=== PATIENT | female | born 1935 | race Caucasian/White ===

== ENCOUNTER 2025-05-13 00:42 | Inpatient (IN) ==
--- NOTE | 2025-05-13 00:52 | Emergency Department Note ---
Impression & Plan CLAY (acute kidney injury) Admission ED Provider Note HPI: History obtained from patient. The patient is a 89-year-old female who presents the emergency department with a chief complaint of diarrhea. Patient states that she has had watery diarrhea every day for the past 3 days. Patient states she has had some intermittent abdominal discomfort but currently she states she does not have any abdominal pain. 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 On arrival here to the ED the patient is alert, she is hemodynamically stable, she otherwise appears to be in no acute distress. ROS: - Per HPI Differential Diagnosis: C. difficile colitis, viral gastroenteritis, sepsis, diverticulitis flare, acute cholecystitis, acute appendicitis, amongst other potential pathologies. *Outpatient medications and allergy history reviewed. PE: General: Alert, frail-appearing, no acute distress HEENT: Normocephalic, trachea midline Eyes: Extraocular eye movement is intact, no scleral erythema Pulmonary: Clear to auscultation bilaterally, no wheezing Cardio: Regular rate and rhythm GI: Abdomen is soft to palpation, there is mild distention, there is no guarding or rigidity : No suprapubic tenderness MSK: No evidence of trauma or malformation of the extremities, no edema Skin: No evidence of rash, chronic appearing lower extremity wound to the anterior aspect of the right [place] without any surrounding purulent drainage Neuro: Alert, no focal deficits Psychiatric: Cooperative INDEPENDENT INTERPRETATIONS: clinical research monitor: (As interpreted by myself): - An order was placed for continuous cardiac monitoring - Patient was noted to be in sinus rhythm with a rate of 82 Interventions provided in ED: - IV fluid bolus, IV Zofran, IV Flagyl, IV ciprofloxacin Medical Decision Making: IV was established and lab work obtained, patient was placed on front desk monitor. Lab work shows a mild leukocytosis of 12.24, hemoglobin is normal, platelet count is normal, CMP shows a mild hyponatremia 127 that does appear to be new, creatinine is also elevated at 1.73 with a BUN of 29, patient was given IV fluids here in the ED. CT imaging of the abdomen pelvis was obtained without contrast given the patient's renal function, this is suggestive of possible acute choledocholithiasis without acute cholecystitis as well as colitis changes per the interpreting radiologist. Of note, patient does not have any transaminitis and her bilirubin is normal. On my reassessment the patient is resting comfortably in bed, she otherwise appears to be in no acute distress. She was unable to give a stool sample here in the ED as she stated she did not feel that she needed to go. I discussed all of the above findings with the patient as well as 2 family members they later arrived at the bedside. Patient is in agreement for admission. Blood cultures were drawn and the patient was started on ciprofloxacin and Flagyl given her penicillin allergy. Gastroenterology was paged from the ED and I did discuss the patient's presentation with Dr. Pete. He is in agreement for consultation and does not request any further testing at this point. I did discuss the patient's presentation with the on-call hospitalist, Dr. Gaspar, and the patient was placed for admission in stable condition. Consultants/Discussions held with other healthcare providers: - Hospitalist, Dr. Gaspar - Gastroenterology, Dr. Pete Disposition discussion held by myself with: - Patient and patient's family at the bedside Diagnosis: 1. Diarrhea, acute 2. Colitis, acute 3. Choledocholithiasis on CT imaging, acute Disposition: Admission Abel Anthony DO Emergency Medicine Past Med/Surg History Problem List (Updated 05/13/25 @ 04:04 by Abel Anthony DO) CLAY (acute kidney injury) (Acute) Abnormal ankle brachial index (DAVON) (Acute) Lower extremity edema (Chronic) Stage IV pressure ulcer (Acute) Closed fracture of left proximal humerus (Acute) Fall (Acute) Rib contusion (Acute) Social History Smoking Status: Former smoker Preferred Language: Bengali Feels Safe at Home: Yes Allergies Allergies Allergy/AdvReac Type Severity Reaction Status Date / Time Penicillins Allergy Severe THROAT Verified 05/13/25 01:33 SWELLS/ITCHING HANDS & FEET Home Meds Home Medications Medication Instructions Recorded Confirmed apixaban 2.5 mg tablet 2.5 mg PO BID 03/20/25 05/13/25 diltiazem HCl 180 mg 180 mg PO DAILY 03/21/25 05/13/25 tablet,extended release 24 hr (Cardizem LA) amiodarone 200 mg tablet 200 mg PO DIRECTED 05/13/25 05/13/25 dapagliflozin propanediol 10 mg 10 mg PO DAILY 05/13/25 05/13/25 tablet furosemide 40 mg tablet 40 mg PO QAM 05/13/25 05/13/25 levothyroxine 50 mcg tablet 50 mcg PO DAILYBB 05/13/25 05/13/25 magnesium oxide 800 mg PO DAILY 05/13/25 05/13/25 multivitamin,tx-minerals 1 tab PO DAILY 05/13/25 05/13/25 potassium chloride 10 mEq 10 meq PO BID 05/13/25 05/13/25 tablet,extended release spironolactone 25 mg tablet 25 mg PO DAILY 05/13/25 05/13/25 Results & Data (ED) Vital Signs Vital Signs - 24 hr 05/13/25 00:48 05/13/25 00:48 05/13/25 01:00 Temperature 37.3 C Temperature Source Oral Pulse Rate 96 H 83 91 H Pulse Rhythm Regular Pulse Strength Normal Respiratory Rate 20 19 Respiratory Effort / Characteristics Non-Labored Spontaneous Respiratory Depth Normal Respiratory Pattern Regular Blood Pressure 112/88 112/54 L Blood Pressure Mean 96 73 Pulse Oximetry 96 95 Oxygen Delivery Method Room Air Oxygen Flow Rate Sepsis Recent Fever Within 48 Hours No Sepsis New/Unexplained Change in Mental Status No Sepsis Action Taken by Nursing No Action Required 05/13/25 01:30 05/13/25 02:30 Temperature Temperature Source Pulse Rate 83 80 Pulse Rhythm Pulse Strength Respiratory Rate 24 20 Respiratory Effort / Characteristics Respiratory Depth Respiratory Pattern Blood Pressure 101/58 L 102/52 L Blood Pressure Mean 72 68 Pulse Oximetry 95 Oxygen Delivery Method Nasal Cannula Oxygen Flow Rate 2 Sepsis Recent Fever Within 48 Hours Sepsis New/Unexplained Change in Mental Status Sepsis Action Taken by Nursing Laboratory Data 05/13/25 00:51 05/13/25 00:51 Lab Results 05/13/25 05/13/25 Range/Units 00:51 00:56 WBC 12.24 H (4.8-10.8) K/ul RBC 5.11 (4.20-5.40) M/uL Hgb 14.8 (12.0-16.0) g/dL Hct 43.9 (37.0-47.0) % MCV 85.9 (80.0-100.0) fL MCH 29.0 (25.0-34.0) pg MCHC 33.7 (32.0-36.0) g/dL RDW Std Deviation 45.0 (36.4-46.3) fL RDW Coeff of Olga 14.4 (11.5-14.5) % Plt Count 178 (130-400) K/uL MPV 10.0 (9.4-12.4) fL Immature Gran % (Auto) 0.2 % Neut % (Auto) 80.2 % Lymph % (Auto) 9.3 % Burnet % (Auto) 9.6 % Eos % (Auto) 0.2 % Baso % (Auto) 0.5 % Neut # (Auto) 9.81 H (1.40-6.50) K/uL Lymph # (Auto) 1.14 L (1.20-3.40) K/uL Burnet # (Auto) 1.18 H (0.11-0.59) K/uL Eos # (Auto) 0.02 (0.00-0.50) K/uL Baso # (Auto) 0.06 (0.00-0.20) K/uL Immature Gran # (Auto) 0.03 (0.01-0.20) K/uL Sodium 127 L (136-145) mmol/L Potassium 4.2 (3.5-5.1) mmol/L Chloride 90 L (98-107) mmol/L Carbon Dioxide 26 (21-32) mmol/L Anion Gap 11 (3-11) BUN 29 H (6-23) mg/dl Creatinine 1.73 H (0.6-1.2) mg/dl Est Cr Clr Drug Dosing 23.8 ml/min eGFR 28.25 BUN/Creatinine Ratio 16.8 (10-20) Glucose 106 H (70-99(Fasting)) mg/dl Osmolality 267 L (280-300) mOsm/kg Lactate 1.3 (0.4-2.0) mmol/L Calcium 9.1 (8.6-10.3) mg/dl Magnesium 1.9 (1.7-2.4) mg/dl Total Bilirubin 0.7 (0.2-1.0) mg/dl AST 23 (13-39) U/L ALT 15 (7-52) U/L Alkaline Phosphatase 105 H (34-104) U/L Total Protein 7.0 (6.0-8.3) gm/dl Albumin 3.7 (3.4-5.0) gm/dl Globulin 3.3 (2.5-4.0) gm/dl Albumin/Globulin Ratio 1.1 (0.9-2) Lipase 13 (11-82) U/L Administered Medications Metronidazole (Flagyl) 500 mg in 100 mls @ 100 mls/hr IV NOW STA; Protocol Stop: 05/13/25 04:07 Last Admin: 05/13/25 03:24 Dose: 100 mls/hr Documented By: VALERIANO Discontinued Medications Sodium Chloride (Nss) 500 mls @ 999 mls/hr IV .Q31M STA Stop: 05/13/25 01:16 Last Infusion: 05/13/25 01:25 Dose: Infused Documented By: Admin: 05/13/25 00:56 Dose: 999 mls/hr Documented By: KIKE Sodium Chloride (Nss) 500 mls @ 999 mls/hr IV .Q31M ONE Stop: 05/13/25 03:28 Last Admin: 05/13/25 03:24 Dose: 999 mls/hr Documented By: VALERIANO Ondansetron HCl (Ondansetron Inj 2 Mg/Ml 2 Ml Vial) 4 mg IV NOW STA Stop: 05/13/25 00:53 Last Admin: 05/13/25 00:57 Dose: 4 mg Documented By: KIKE Imaging Data Radiologist's Impression: Abdomen/Pelvis CT 05/13/25 01:27 EXAM: CT abd pelvis wo con CLINICAL HISTORY: Diarrhea, abdominal pain TECHNIQUE: Contiguous axial images were obtained from the level of the diaphragm to the pubic symphysis without intravenous or oral contrast. Coronal and sagittal reconstructions were likewise performed and indicated to increase the sensitivity for detecting clinically relevant pathology. CT scan was performed according to ALARA (as low as reasonably achievable). COMPARISON: None. FINDINGS: The visualized lung bases are clear. Sliding hiatus hernia noted. Evaluation of the abdominal and pelvic visceral organs is limited without intravenous contrast. The unenhanced liver, spleen, pancreas, and adrenal glands are grossly unremarkable. About 16 x 16 mm sized hypodense lesion is noted in segment IV of liver. The gallbladder distended and shows a calculus of size 22 mm with internal hyperdense sludge without cholecystitis. Common bile duct is dilated with a hyperdense calculus of size 4 mm at distal end. The kidneys are normal in size and attenuation without obvious calcification. There is no hydronephrosis or perinephric stranding. The ureters are normal in caliber. No adenopathy or fluid collections are seen. Diffuse mucosal thickening with adjacent mesenteric fat stranding is noted involving cecum, ascending colon, hepatic and splenic flexure, descending , sigmoid colon and rectum - suggest possibility of colitis changes - clinical correlation suggested. Multiple small uncomplicated sigmoid colonic diverticulosis No imaging evidence of appendicitis. The aorta is normal in caliber. The urinary bladder is normal in contour. Pelvic viscera are grossly unremarkable. Degenerative changes involving spine in the form of multilevel marginal osteophytes, disc space reduction and facetal arthrosis. Severe osteoarthritis of bilateral hip joints. IMPRESSION: 1. Uncomplicated cholelithiasis. 2. Common bile duct is dilated with a hyperdense calculus of size 4 mm at distal end. Suggestive of choledocholithiasis. 3. Diffuse mucosal thickening with adjacent mesenteric fat stranding is noted involving cecum, ascending colon, hepatic and splenic flexure, descending , sigmoid colon and rectum - suggest possibility of colitis changes - clinical correlation suggested. 4. Multiple small uncomplicated sigmoid colonic diverticulosis. 5. Sliding hiatus hernia noted. 6. About 16 x 16 mm sized hypodense lesion is noted in segment IV of liver. 7. Severe osteoarthritis of bilateral hip joints. 8. Spondylosis changes involving visualized spine. Electronically signed by Taz Johnson 05-13-2025 02:46 AM Discharge Plan Visit Data Chief Complaint: Diarrhea Stated Complaint: Diarrhea, Abdominal Pain ED Provider: Abel Anthony Discharge Problem: CLAY (acute kidney injury) Patient Disposition: Admitted As Inpatient Condition: Fair Forms Stand Alone Forms: My [facility] Prescriptions Prescriptions: No Action apixaban 2.5 mg tablet 2.5 mg PO BID diltiazem HCl [Cardizem LA] 180 mg tablet extended release 24 hr 180 mg PO DAILY furosemide 40 mg tablet 40 mg PO QAM amiodarone 200 mg tablet 200 mg PO DIRECTED Rx Instructions: STARTED 05/11/25. TAKES 400 MG BID X 2 WEEKS, THEN 200 MG BID X 2 WEEKS, THEN 200 MG DAILY. potassium chloride 10 mEq tablet extended release 10 meq PO BID spironolactone 25 mg Tablet 25 mg PO DAILY levothyroxine 50 mcg tablet 50 mcg PO DAILYBB High Potency Vitamin/Minerals Tablet 1 tab PO DAILY dapagliflozin propanediol 10 mg tablet 10 mg PO DAILY magnesium oxide 400 mg magnesium Tablet 800 mg PO DAILY Referrals Referrals: [facility] [Primary Care Provider] -
[2025-05-13] MEDS: SODIUM CHLORIDE 0.9% 500 ML IV STA (00:56)
[2025-05-13] MEDS: ONDANSETRON INJ 2 MG/ML 2 ML VIAL IV STA (00:57)
[2025-05-13 01:06] LABS: Hematocrit (blood only) 43.9 % (37.0-47.0); Hemoglobin 14.8 g/dL (12.0-16.0); Immature Granulocytes # (auto) 0.03 K/uL (0.01-0.20); Immature Granulocytes % (auto) 0.2 %; Mean Corpuscular Hemoglobin 29.0 pg (25.0-34.0); Mean Corpuscular Volume 85.9 fL (80.0-100.0); Platelet Count 178 K/uL (130-400); RDW Standard Deviation 45.0 fL (36.4-46.3); Red Blood Count 5.11 M/uL (4.20-5.40); White Blood Count 12.24 K/ul (4.8-10.8)
[2025-05-13 01:25] LABS: Alanine Aminotransferase 15.0 U/L (7-52); Albumin Globulin Ratio 1.1 (0.9-2); Albumin Level 3.7 gm/dl (3.4-5.0); Alkaline Phosphatase 105.0 U/L (34-104); Anion Gap 11.0 (3-11); Bilirubin,Total 0.7 mg/dl (0.2-1.0); Blood Urea Nitrogen 29.0 mg/dl (6-23); Calcium 9.1 mg/dl (8.6-10.3); Carbon Dioxide 26.0 mmol/L (21-32); Chloride 90.0 mmol/L (98-107); Creatinine Clr Calc Pharmacy 23.8 ml/min; Globulin 3.3 gm/dl (2.5-4.0); Glucose 106.0 mg/dl (70-99(Fasting)); Lipase 13.0 U/L (11-82); Potassium 4.2 mmol/L (3.5-5.1); Sodium 127.0 mmol/L (136-145); Total Protein 7.0 gm/dl (6.0-8.3)
--- NOTE | 2025-05-13 02:47 | CT Scan Report ---
EXAM: CT abd pelvis wo con CLINICAL HISTORY: Diarrhea, abdominal pain TECHNIQUE: Contiguous axial images were obtained from the level of the diaphragm to the pubic symphysis without intravenous or oral contrast. Coronal and sagittal reconstructions were likewise performed and indicated to increase the sensitivity for detecting clinically relevant pathology. CT scan was performed according to ALARA (as low as reasonably achievable). COMPARISON: None. FINDINGS: The visualized lung bases are clear. Sliding hiatus hernia noted. Evaluation of the abdominal and pelvic visceral organs is limited without intravenous contrast. The unenhanced liver, spleen, pancreas, and adrenal glands are grossly unremarkable. About 16 x 16 mm sized hypodense lesion is noted in segment IV of liver. The gallbladder distended and shows a calculus of size 22 mm with internal hyperdense sludge without cholecystitis. Common bile duct is dilated with a hyperdense calculus of size 4 mm at distal end. The kidneys are normal in size and attenuation without obvious calcification. There is no hydronephrosis or perinephric stranding. The ureters are normal in caliber. No adenopathy or fluid collections are seen. Diffuse mucosal thickening with adjacent mesenteric fat stranding is noted involving cecum, ascending colon, hepatic and splenic flexure, descending , sigmoid colon and rectum - suggest possibility of colitis changes - clinical correlation suggested. Multiple small uncomplicated sigmoid colonic diverticulosis No imaging evidence of appendicitis. The aorta is normal in caliber. The urinary bladder is normal in contour. Pelvic viscera are grossly unremarkable. Degenerative changes involving spine in the form of multilevel marginal osteophytes, disc space reduction and facetal arthrosis. Severe osteoarthritis of bilateral hip joints. IMPRESSION: 1. Uncomplicated cholelithiasis. 2. Common bile duct is dilated with a hyperdense calculus of size 4 mm at distal end. Suggestive of choledocholithiasis. 3. Diffuse mucosal thickening with adjacent mesenteric fat stranding is noted involving cecum, ascending colon, hepatic and splenic flexure, descending , sigmoid colon and rectum - suggest possibility of colitis changes - clinical correlation suggested. 4. Multiple small uncomplicated sigmoid colonic diverticulosis. 5. Sliding hiatus hernia noted. 6. About 16 x 16 mm sized hypodense lesion is noted in segment IV of liver. 7. Severe osteoarthritis of bilateral hip joints. 8. Spondylosis changes involving visualized spine. Electronically signed by Taz Johnson 05-13-2025 02:46 AM
[2025-05-13] MEDS: SODIUM CHLORIDE 0.9% 500 ML IV ONE (03:24)
[2025-05-13] MEDS: metroNIDAZOLE 500 MG/100 ML BAG IV STA (03:24)
--- NOTE | 2025-05-13 03:30 | History & Physical Report ---
Date of Service May 13, 2025 Assessment & Plan (1) Abdominal pain: Plan: Assessment and plan below following discussion of case with ED provider and reviewing patient history/pertinent normal/abnormal diagnostic test results. Abdominal pain Multifactorial: Colitis rule out C. difficile given recent facility stay Choledocholithiasis No sepsis for now. ARF, hypoosmolar, hypovolemic hyponatremia secondary to illness Home diuretics contributory CHF, patient on the dry side A-fib on Eliquis, rate controlled hypertension, BP on the lower side chronic traumatic RLE wound, patient follows with [facility] wound care. Hypothyroidism TSH from 2 months ago elevated Admit to med/tele given hyponatremia Careful correction of sodium, recheck serum sodium after initial fluid bolus given at the ER Hyponatremia workup Baseline UA, hold home diuretics for now until creatinine back to baseline Stool C. difficile GI consult re: choledocholithiasis (ER provider already in touch with Dr. Pete.) N.p.o. in anticipation of procedure Hold Eliquis for now (last dose was last night prior to coming to ER) DVT prophylaxis. SCDs while Eliquis on hold DNR as per patient prior directives Patient family requesting updates providers. Ms. Daylin Patel (daughter), contact #[phone]. Mr. Bob Patel (grandson), contact #[phone]. Text document was generated using [employer] voice recognition software. It may contain grammatical or spelling errors. Kindly contact undersigned for clarification of any documentation item in question. History of Present Illness Chief Complaint: abdominal pain Primary Care Provider: Dr London (Patient has not met him.) History obtained from patient, family, and records. Medical history significant for CHF, A-fib on Eliquis, hypertension, hyperlipidemia, hypothyroidism, chronic traumatic RLE wound. Recent confinement [facility] last January 2025 for possible pneumonia, UTI, traumatic rhabdomyolysis/RLE wound. Patient subsequently discharged to [facility] facility and was just discharged home 2 days ago. Patient with watery diarrhea symptoms 3 days ago prior to leaving rehab facility. Intermittent achy upper abdominal pain with nausea symptoms. No fever, no chills. No chest pain, no SOB. Poor appetite at home. Patient brought to ER for evaluation. NSS bolus, IV ciprofloxacin and Flagyl administered at the ER. Medical History as above Surgical History : Shoulder surgery, ankle fracture surgery Family History : No DM, no heart disease, no gallstones Personal/Social history : Non-smoker, no EtOH intake, retired caregiver Allergies Allergy/AdvReac Type Severity Reaction Status Date / Time Penicillins Allergy Severe THROAT Verified 05/13/25 01:33 SWELLS/ITCHING HANDS & FEET Home Medications Medication Instructions Recorded Confirmed Type apixaban 2.5 mg tablet 2.5 mg PO BID 03/20/25 05/13/25 History diltiazem HCl 180 mg 180 mg PO DAILY 03/21/25 05/13/25 History tablet,extended release 24 hr (Cardizem LA) amiodarone 200 mg tablet 200 mg PO DIRECTED 05/13/25 05/13/25 History dapagliflozin propanediol 10 mg 10 mg PO DAILY 05/13/25 05/13/25 History tablet furosemide 40 mg tablet 40 mg PO QAM 05/13/25 05/13/25 History levothyroxine 50 mcg tablet 50 mcg PO DAILYBB 05/13/25 05/13/25 History magnesium oxide 800 mg PO DAILY 05/13/25 05/13/25 History multivitamin,tx-minerals 1 tab PO DAILY 05/13/25 05/13/25 History potassium chloride 10 mEq 10 meq PO BID 05/13/25 05/13/25 History tablet,extended release spironolactone 25 mg tablet 25 mg PO DAILY 05/13/25 05/13/25 History Past Med/Surg History Problem List (Updated 05/13/25 @ 05:03 by Jason Gaspar MD) Abdominal pain CLAY (acute kidney injury) (Acute) Abnormal ankle brachial index (DAVON) (Acute) Lower extremity edema (Chronic) Stage IV pressure ulcer (Acute) Closed fracture of left proximal humerus (Acute) Fall (Acute) Rib contusion (Acute) Social History Smoking Status: Never smoker Hx Alcohol Use: No Hx Substance Use: No Preferred Language: [place] Islander Make Up Operator Required: No Beliefs That Will Affect Care: None Current Living Situation: Family Feels Safe at Home: Yes Safety Concerns: Feels Safe At This Time Assistive Devices: Oxygen - Continuous and Walker Review of Systems Review of Systems: As per HPI, all other systems reviewed and negative Physical Exam Physical Exam: GENERAL: Slightly uncomfortable, obese, no respiratory distress SKIN: Normal color, warm HEENT: [place] palpebral conjunctivae, no ptosis, dry buccal mucosa NECK : Supple, no tenderness CHEST : Decreased breath sounds, no tenderness HEART : Irregular, no obvious murmurs ABDOMEN: Some distention, nontender EXTREMITIES : RLE dressing, no tenderness, palpable pulses, no other conspicuous deformities noted NEUROLOGIC : Coherent, no facial asymmetry, no other gross focality Results & Data Results & Data Vital Signs (Past 12 Hours) Vital Signs Temp Pulse Resp BP Pulse Ox O2 Del Method O2 Flow Rate 05/13/25 02:30 80 20 102/52 L 95 Nasal Cannula 2 05/13/25 01:30 83 24 101/58 L 05/13/25 01:00 91 H 19 112/54 L 95 05/13/25 00:48 83 05/13/25 00:48 37.3 C 96 H 20 112/88 96 Room Air Laboratory Results Laboratory Results WBC 12.24 K/ul (4.8-10.8) H 05/13/25 00:51 RBC 5.11 M/uL (4.20-5.40) 05/13/25 00:51 Hgb 14.8 g/dL (12.0-16.0) 05/13/25 00:51 Hct 43.9 % (37.0-47.0) 05/13/25 00:51 MCV 85.9 fL (80.0-100.0) 05/13/25 00:51 MCH 29.0 pg (25.0-34.0) 05/13/25 00:51 MCHC 33.7 g/dL (32.0-36.0) 05/13/25 00:51 RDW Std Deviation 45.0 fL (36.4-46.3) 05/13/25 00:51 RDW Coeff of Olga 14.4 % (11.5-14.5) 05/13/25 00:51 Plt Count 178 K/uL (130-400) 05/13/25 00:51 MPV 10.0 fL (9.4-12.4) 05/13/25 00:51 Immature Gran % (Auto) 0.2 % 05/13/25 00:51 Neut % (Auto) 80.2 % 05/13/25 00:51 Lymph % (Auto) 9.3 % 05/13/25 00:51 Gaston % (Auto) 9.6 % 05/13/25 00:51 Eos % (Auto) 0.2 % 05/13/25 00:51 Baso % (Auto) 0.5 % 05/13/25 00:51 Neut # (Auto) 9.81 K/uL (1.40-6.50) H 05/13/25 00:51 Lymph # (Auto) 1.14 K/uL (1.20-3.40) L 05/13/25 00:51 Gaston # (Auto) 1.18 K/uL (0.11-0.59) H 05/13/25 00:51 Eos # (Auto) 0.02 K/uL (0.00-0.50) 05/13/25 00:51 Baso # (Auto) 0.06 K/uL (0.00-0.20) 05/13/25 00:51 Immature Gran # (Auto) 0.03 K/uL (0.01-0.20) 05/13/25 00:51 Sodium 127 mmol/L (136-145) L 05/13/25 00:51 Potassium 4.2 mmol/L (3.5-5.1) 05/13/25 00:51 Chloride 90 mmol/L (98-107) L 05/13/25 00:51 Carbon Dioxide 26 mmol/L (21-32) 05/13/25 00:51 Anion Gap 11 (3-11) 05/13/25 00:51 BUN 29 mg/dl (6-23) H 05/13/25 00:51 Creatinine 1.73 mg/dl (0.6-1.2) H 05/13/25 00:51 Est Cr Clr Drug Dosing 23.8 ml/min 05/13/25 00:51 eGFR 28.25 05/13/25 00:51 BUN/Creatinine Ratio 16.8 (10-20) 05/13/25 00:51 Glucose 106 mg/dl (70-99(Fasting)) H 05/13/25 00:51 Lactate 1.3 mmol/L (0.4-2.0) 05/13/25 00:56 Calcium 9.1 mg/dl (8.6-10.3) 05/13/25 00:51 Total Bilirubin 0.7 mg/dl (0.2-1.0) 05/13/25 00:51 AST 23 U/L (13-39) 05/13/25 00:51 ALT 15 U/L (7-52) 05/13/25 00:51 Alkaline Phosphatase 105 U/L (34-104) H 05/13/25 00:51 Total Protein 7.0 gm/dl (6.0-8.3) 05/13/25 00:51 Albumin 3.7 gm/dl (3.4-5.0) 05/13/25 00:51 Globulin 3.3 gm/dl (2.5-4.0) 05/13/25 00:51 Albumin/Globulin Ratio 1.1 (0.9-2) 05/13/25 00:51 Lipase 13 U/L (11-82) 05/13/25 00:51 Impressions Abdomen/Pelvis CT 05/13/25 01:27 EXAM: CT abd pelvis wo con CLINICAL HISTORY: Diarrhea, abdominal pain TECHNIQUE: Contiguous axial images were obtained from the level of the diaphragm to the pubic symphysis without intravenous or oral contrast. Coronal and sagittal reconstructions were likewise performed and indicated to increase the sensitivity for detecting clinically relevant pathology. CT scan was performed according to ALARA (as low as reasonably achievable). COMPARISON: None. FINDINGS: The visualized lung bases are clear. Sliding hiatus hernia noted. Evaluation of the abdominal and pelvic visceral organs is limited without intravenous contrast. The unenhanced liver, spleen, pancreas, and adrenal glands are grossly unremarkable. About 16 x 16 mm sized hypodense lesion is noted in segment IV of liver. The gallbladder distended and shows a calculus of size 22 mm with internal hyperdense sludge without cholecystitis. Common bile duct is dilated with a hyperdense calculus of size 4 mm at distal end. The kidneys are normal in size and attenuation without obvious calcification. There is no hydronephrosis or perinephric stranding. The ureters are normal in caliber. No adenopathy or fluid collections are seen. Diffuse mucosal thickening with adjacent mesenteric fat stranding is noted involving cecum, ascending colon, hepatic and splenic flexure, descending , sigmoid colon and rectum - suggest possibility of colitis changes - clinical correlation suggested. Multiple small uncomplicated sigmoid colonic diverticulosis No imaging evidence of appendicitis. The aorta is normal in caliber. The urinary bladder is normal in contour. Pelvic viscera are grossly unremarkable. Degenerative changes involving spine in the form of multilevel marginal osteophytes, disc space reduction and facetal arthrosis. Severe osteoarthritis of bilateral hip joints. IMPRESSION: 1. Uncomplicated cholelithiasis. 2. Common bile duct is dilated with a hyperdense calculus of size 4 mm at distal end. Suggestive of choledocholithiasis. 3. Diffuse mucosal thickening with adjacent mesenteric fat stranding is noted involving cecum, ascending colon, hepatic and splenic flexure, descending , sigmoid colon and rectum - suggest possibility of colitis changes - clinical correlation suggested. 4. Multiple small uncomplicated sigmoid colonic diverticulosis. 5. Sliding hiatus hernia noted. 6. About 16 x 16 mm sized hypodense lesion is noted in segment IV of liver. 7. Severe osteoarthritis of bilateral hip joints. 8. Spondylosis changes involving visualized spine. Electronically signed by Taz Johnson 05-13-2025 02:46 AM Diagnostic Findings Chest x-ray as per interpretation no infiltrate
[2025-05-13 03:48] LABS: Magnesium 1.9 mg/dl (1.7-2.4)
[2025-05-13] MEDS ORDERED: MoRPHine SULFATE 2 MG/ML CARP IV PRN (04:07)
[2025-05-13 04:18] LABS: Partial Thromboplastin Time 33 Seconds (21-31)
--- NOTE | 2025-05-13 04:53 | XRay Report ---
EXAM: XR chest 1V portable CLINICAL HISTORY: Hyponatremia. TECHNIQUE: An X-ray image of the chest is obtained in AP projection. COMPARISON: 05/26/2015. FINDINGS: Pulmonary Parenchyma: Bilateral apical and basal mild, faint reticulations. No definite consolidation, collapse. No pulmonary nodules are identified. No evidence of pleural effusion or pleural thickening. Heart and Mediastinum: Heart size and shape are normal. No mediastinal widening or masses. No hilar or mediastinal lymphadenopathy. Bony Thorax: Bony thorax appears intact without fractures or deformities. Soft Tissues: Soft tissues overlying the chest wall are unremarkable. IMPRESSION: 1. No acute cardiopulmonary abnormalities are identified. 2. Bilateral apical and basal mild, faint reticulations. Electronically signed by Munir Aldridge 05-13-2025 04:52 AM
[2025-05-13 05:20] LABS: Base Excess VBG 4.0 mEq/L; HCO3 VBG 29 mmol/L; Oxygen Saturation VBG < 60.0 %; PCO2 VBG 45 mmHg (38-50); PO2 VBG < 20 mmHg; pH VBG 7.42 (7.36-7.41)
[2025-05-13] MEDS: CIPROFLOXACIN / D5W 400 MG/200 ML BAG IV STA (05:31)
[2025-05-13] MEDS: ALBUMIN 25% 25 GM/100 ML VIAL IV STA (06:10)
[2025-05-13] MEDS: LEVOTHYROXINE SODIUM 50 MCG TABLET PO SCH (06:18)
[2025-05-13 06:41] LABS: T4 Free Thyroxine 1.38 ng/dl (0.61-1.60)
[2025-05-13] MEDS: SODIUM CHLORIDE 0.9% 1,000 ML IV ONE (07:12)
[2025-05-13] MEDS: PROMETHAZINE 6.25 MG/50.25 ML BAG IV PRN (08:41)
[2025-05-13] MEDS: AMIODARONE 200 MG TAB PO SCH (09:18)
[2025-05-13] MEDS: CEROVITE ADV FORMULA TAB PO SCH (09:18)
--- NOTE | 2025-05-13 09:32 | Hospitalist Progress Note ---
<Statement entered by Thompson Landry, DO - 05/13/25 14:33> I have seen and examined the patient and have discussed the case with the advance practice provider. I have reviewed the advanced practitioner's documentation, and I agree with, and take responsibility for that plan of care. Patient resting when I entered to the room, easily awakened. Asking if she really needs to have intervention on her gallbladder Subsequently obtained C. difficile testing results. Reviewed additional history obtained by Kuldip from family, patient with recent hospitalization at [facility] diagnosed with heart failure diuretics started at that time. She also started with diarrhea at that time. Had been on antibiotics for a wound of the lower extremity with wound VAC. Treat C. difficile colitis, oral vancomycin. Hold other antibiotics at this time Communication with GI, will anticipate ERCP later on this week Hyponatremia multifactorial, dehydration, subtherapeutic treatment of hypothyroidism, diuretics. Continue IV hydration I spent a total of 20 minutes coordinating, documenting, and providing care for this patient excluding time spent by another provider/QHP. Date of Service May 13, 2025 Assessment & Plan (1) Abdominal pain: Plan: This is a 89yo F with A-fib on Eliquis, hypertension, hyperlipidemia, hypothyroidism, chronic traumatic RLE wound presenting with diarrhea and weakness x 3 days. Patient with complex health course since January 2025. Initially admitted to [facility] for possible pneumonia, UTI, traumatic rhabdomyolysis/RLE wound and was then subsequently discharged to [facility] facility. Last week, was transferred to [facility] due to reported volume overload and RLE wound (awaiting records) and was discharged home 2 days ago. C difficile colitis, POA In setting of recent admission, antibiotics for RLE wound and diarrhea x 3 days WBC 12.24, c diff positive for gene and toxin CT abd/pelvis with diffuse mucosal thickening with adjacent mesenteric fat stranding is noted involving cecum, ascending colon, hepatic and splenic flexure, descending , sigmoid colon and rectum - suggest possibility of colitis Started on oral Vanco Continue gentle fluids Isolation precautions Choledocholithiasis CT abd /pelvis with common bile duct is dilated with a hyperdense calculus of size 4 mm at distal end. Suggestive of choledocholithiasis LFTs wnl, bili wnl GI consulted - feel this is an incidental finding. Once clinically improved can consider MRCP to confirm CLAY Cr 1.73 (baseline Cr ~ 0.7) in setting of poor PO intake, GI losses Gentle fluids, avoid nephrotoxic agents as able Hyponatremia Hypotonic, hypovolemic with Na 127 In setting of acute infection, hypothyroidism Hold home diuretics Expect improvement on abx, adjusted levothyroxine CHF Recently diagnosed at [facility] (requested records) - started on diuretics last week, currently on hold as above Atrial fibrillation Continue amiodarone, diltiazem. Anticoagulated on Eliquis HTN BP on lower side - holding diuretics for now Chronic traumatic RLE wound Patient follows with [facility] wound care [facility] consulted Hypothyroidism TSH elevated at 23.9, up from 5 in Feb Increased levothyroxine to 50mcg, follow up with TFTs in 6-8 weeks DVT Ppx: Eliquis Code status: DNR/DNI PCP: Raissa Dispo: Admitted to [facility] tele Patient seen in collaboration with Dr. Landry. Please see addendum. I spent a total of 50 minutes coordinating, documenting, and providing care for this patient excluding time spent in the performance of separately billed servic es or time spent by another provider/QHP. Called daughter to provide update this afternoon. Requesting daily updates. Ms. Daylin Patel (daughter), contact #[phone]. Mr. Bob Patel (grandson), contact #[phone]. Admission and Anticipated Discharge Date Admission Date: May 13, 2025 Subjective Seen and examined in 282-2. Feeling nauseated but no vomiting this AM. Abdominal distention and bloated feeling without specific pain. Stool studies obtained earlier pending. No recurrent diarrhea since then. No F/C, lightheadedness, CP, SOB, dysuria. Lives with her son. Review of Systems Review of Systems: At least ten systems reviewed and negative except as noted in the HPI. Physical Exam Physical Exam: Gen: WD/WN, NAD, appears ill, A&Ox3, answer questions appropriately HEENT: Normocephalic, atraumatic, dry mucous membranes of oropharynx Lung: Clear to Auscultation bilaterally Heart: Regular rate, regular rhythm Abdomen: Soft, mild distension, non-tender, +BS x 4 Extremities: trace edema Skin: Warm, no rash. + R [place] wound with dressing c/d/i Results & Data Results & Data Vital Signs (Past 12 Hours) Vital Signs Temp Pulse Pulse Resp BP BP Pulse Ox 05/13/25 08:10 36.6 C 71 24 108/69 97 05/13/25 08:00 92 H 05/13/25 04:50 05/13/25 04:50 37.5 C 19 116/71 94 05/13/25 04:00 86 19 114/84 93 05/13/25 03:30 76 20 108/53 L 96 05/13/25 02:30 80 20 102/52 L 95 05/13/25 01:30 83 24 101/58 L 05/13/25 01:00 91 H 19 112/54 L 95 05/13/25 00:48 83 05/13/25 00:48 37.3 C 96 H 20 112/88 96 O2 Del Method O2 Flow Rate 05/13/25 08:10 Nasal Cannula 2 05/13/25 08:00 05/13/25 04:50 Nasal Cannula 2 05/13/25 04:50 Nasal Cannula 2 05/13/25 04:00 Nasal Cannula 05/13/25 03:30 05/13/25 02:30 Nasal Cannula 2 05/13/25 01:30 05/13/25 01:00 05/13/25 00:48 05/13/25 00:48 Room Air Laboratory Results Short CBC 05/13/25 Range/Units 00:51 WBC 12.24 H (4.8-10.8) K/ul Hgb 14.8 (12.0-16.0) g/dL Hct 43.9 (37.0-47.0) % Plt Count 178 (130-400) K/uL BMP 05/13/25 05/13/25 05/13/25 00:51 05:02 12:05 Sodium 127 L 127 L 127 L Potassium 4.2 Chloride 90 L Carbon Dioxide 26 BUN 29 H Creatinine 1.73 H Glucose 106 H Calcium 9.1 Liver Function 05/13/25 Range/Units 00:51 Total Bilirubin 0.7 (0.2-1.0) mg/dl AST 23 (13-39) U/L ALT 15 (7-52) U/L Alkaline Phosphatase 105 H (34-104) U/L Albumin 3.7 (3.4-5.0) gm/dl Diagnostic Findings Abdomen/Pelvis CT 05/13/25 01:27 EXAM: CT abd pelvis wo con CLINICAL HISTORY: Diarrhea, abdominal pain TECHNIQUE: Contiguous axial images were obtained from the level of the diaphragm to the pubic symphysis without intravenous or oral contrast. Coronal and sagittal reconstructions were likewise performed and indicated to increase the sensitivity for detecting clinically relevant pathology. CT scan was performed according to ALARA (as low as reasonably achievable). COMPARISON: None. FINDINGS: The visualized lung bases are clear. Sliding hiatus hernia noted. Evaluation of the abdominal and pelvic visceral organs is limited without intravenous contrast. The unenhanced liver, spleen, pancreas, and adrenal glands are grossly unremarkable. About 16 x 16 mm sized hypodense lesion is noted in segment IV of liver. The gallbladder distended and shows a calculus of size 22 mm with internal hyperdense sludge without cholecystitis. Common bile duct is dilated with a hyperdense calculus of size 4 mm at distal end. The kidneys are normal in size and attenuation without obvious calcification. There is no hydronephrosis or perinephric stranding. The ureters are normal in caliber. No adenopathy or fluid collections are seen. Diffuse mucosal thickening with adjacent mesenteric fat stranding is noted involving cecum, ascending colon, hepatic and splenic flexure, descending , sigmoid colon and rectum - suggest possibility of colitis changes - clinical correlation suggested. Multiple small uncomplicated sigmoid colonic diverticulosis No imaging evidence of appendicitis. The aorta is normal in caliber. The urinary bladder is normal in contour. Pelvic viscera are grossly unremarkable. Degenerative changes involving spine in the form of multilevel marginal osteophytes, disc space reduction and facetal arthrosis. Severe osteoarthritis of bilateral hip joints. IMPRESSION: 1. Uncomplicated cholelithiasis. 2. Common bile duct is dilated with a hyperdense calculus of size 4 mm at distal end. Suggestive of choledocholithiasis. 3. Diffuse mucosal thickening with adjacent mesenteric fat stranding is noted involving cecum, ascending colon, hepatic and splenic flexure, descending , sigmoid colon and rectum - suggest possibility of colitis changes - clinical correlation suggested. 4. Multiple small uncomplicated sigmoid colonic diverticulosis. 5. Sliding hiatus hernia noted. 6. About 16 x 16 mm sized hypodense lesion is noted in segment IV of liver. 7. Severe osteoarthritis of bilateral hip joints. 8. Spondylosis changes involving visualized spine. Electronically signed by Taz Johnson 05-13-2025 02:46 AM Chest X-Ray 11/16/25 03:27 EXAM: XR chest 1V portable CLINICAL HISTORY: Hyponatremia. TECHNIQUE: An X-ray image of the chest is obtained in AP projection. COMPARISON: 05/26/2015. FINDINGS: Pulmonary Parenchyma: Bilateral apical and basal mild, faint reticulations. No definite consolidation, collapse. No pulmonary nodules are identified. No evidence of pleural effusion or pleural thickening. Heart and Mediastinum: Heart size and shape are normal. No mediastinal widening or masses. No hilar or mediastinal lymphadenopathy. Bony Thorax: Bony thorax appears intact without fractures or deformities. Soft Tissues: Soft tissues overlying the chest wall are unremarkable. IMPRESSION: 1. No acute cardiopulmonary abnormalities are identified. 2. Bilateral apical and basal mild, faint reticulations. Electronically signed by Munir Aldridge 05-13-2025 04:52 AM
[2025-05-13 10:01] LABS: Adenovirus F 40/41 PCR Not Detected (NotDetected); Campylobacter PCR Not Detected (NotDetected); Cdiff Toxin B Gene (2yr or >) Positive Cdiff Gene (Neg); Enteroaggregative E.coli(EAEC) Not Detected (NotDetected); Shiga-like Toxin E.coli (STEC) Not Detected (NotDetected); Vibrio species PCR Not Detected (NotDetected)
[2025-05-13 10:02] LABS: Cdiff Toxin A+B Positive Cdiff Toxin (Negative)
[2025-05-13] MEDS ORDERED: CHERRY SYRUP 5 ML UDP PO SCH (12:00)
[2025-05-13] MEDS ORDERED: VANCOMYCIN HCL 125 MG/2.5ML SOLN PO SCH (12:00)
[2025-05-13] MEDS: VANCOMYCIN HCL 125 MG CAP PO SCH (13:00)
--- NOTE | 2025-05-13 13:42 | Gastrointestinal Consultation ---
Date of Consultation May 13, 2025 Assessment & Plan (1) C. difficile colitis: Start oral vancomycin. Likely will take 48 hours before feeling better. (2) Common bile duct stone: Incidental finding. Normal LFTs. Once somewhat better consider MRI MRCP to confirm. If small stone confirmed consider ERCP once improved. History of Present Illness Reason for Consultation: Colitis, common duct stone Attending Physician: Thompson Landry DO History of Present Illness 89-year-old female admitted after recent antibiotic [facility] stay with diarrhea x [address] consistent with pancolitis. Stools positive for C. difficile. As a part of the workup CT scan was performed which suggested a 4 mm stone of the distal common bile duct. Patient is asymptomatic from this. Common bile duct said to be dilated though bile duct size not reported. LFTs appear normal other than minimal increase in alkaline phosphatase at 105 which is not specific for biliary obstruction. Denies any right upper quadrant pain. Gallbladder is in place. Large gallstone noted. Allergies Allergy/AdvReac Type Severity Reaction Status Date / Time Penicillins Allergy Severe THROAT Verified 05/13/25 01:33 SWELLS/ITCHING HANDS & FEET Home Medications Medication Instructions Recorded Confirmed Type apixaban 2.5 mg tablet 2.5 mg PO BID 03/20/25 05/13/25 History diltiazem HCl 180 mg 180 mg PO DAILY 03/21/25 05/13/25 History tablet,extended release 24 hr (Cardizem LA) amiodarone 200 mg tablet 200 mg PO DIRECTED 05/13/25 05/13/25 History dapagliflozin propanediol 10 mg 10 mg PO DAILY 05/13/25 05/13/25 History tablet furosemide 40 mg tablet 40 mg PO QAM 05/13/25 05/13/25 History levothyroxine 50 mcg tablet 50 mcg PO DAILYBB 05/13/25 05/13/25 History magnesium oxide 800 mg PO DAILY 05/13/25 05/13/25 History multivitamin,tx-minerals 1 tab PO DAILY 05/13/25 05/13/25 History potassium chloride 10 mEq 10 meq PO BID 05/13/25 05/13/25 History tablet,extended release spironolactone 25 mg tablet 25 mg PO DAILY 05/13/25 05/13/25 History Patient History Social History Smoking Status: Never smoker Hx Alcohol Use: No Hx Substance Use: No Preferred Language: [place] 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 GI as noted above. Review of systems as per admitting H&P reviewed without change. Physical Exam Physical Exam: Patient orientated to person place and time. Complaining of diarrhea. Vital stable currently afebrile Abdomen minimal discomfort on deep palpation. Some mild distention. Bowel sounds normal no guarding rebound or rigidity. RN DOCUMENT IMPROVEMENT SPECIALIST no focal neurological changes Psych anxious Chest and heart exams MSK exam further exam as per admitting H&P reviewed without change Results & Data Vital Signs (Past 12 Hours) Vital Signs Temp Pulse Pulse Pulse Resp BP BP 05/13/25 11:35 37.4 C 91 H 20 106/51 L 05/13/25 08:10 36.6 C 71 24 108/69 05/13/25 08:00 05/13/25 08:00 92 H 05/13/25 04:50 05/13/25 04:50 37.5 C 19 116/71 05/13/25 04:00 86 19 114/84 05/13/25 03:30 76 20 108/53 L 05/13/25 02:30 80 20 102/52 L Pulse Ox O2 Del Method O2 Flow Rate 05/13/25 11:35 100 Nasal Cannula 05/13/25 08:10 97 Nasal Cannula 2 05/13/25 08:00 Nasal Cannula 2 05/13/25 08:00 05/13/25 04:50 Nasal Cannula 2 05/13/25 04:50 94 Nasal Cannula 2 05/13/25 04:00 93 Nasal Cannula 05/13/25 03:30 96 05/13/25 02:30 95 Nasal Cannula 2 PG Care Time/CCT Total # of Minutes Spent Total Time Spent with Patient: Total time spent is greater than 50% in coordination of care (as documented) at patient's floor/unit and/or counseling patient: Coding Level of Care Code 70069 INT INP/OBS CARE 2/55MIN Diagnoses C. difficile colitis A04.72 Common bile duct stone K80.50
[2025-05-13] MEDS: SODIUM CHLORIDE 0.9% 1,000 ML IV SCH (15:38)
[2025-05-13] MEDS: ENOXAPARIN 1 MG/KG SQ SCH (18:12)
[2025-05-13] MEDS ORDERED: ENOXAPARIN 1 MG/KG SQ SCH (21:00)
[2025-05-13] MEDS: ENOXAPARIN 80 MG/0.8 ML SYR SQ SCH (21:29)
[2025-05-13] MEDS: ACETAMINOPHEN 325 MG TAB PO PRN (22:22)
[2025-05-13] MEDS ORDERED: HYDROmorphone INJ 0.5 MG/0.5 ML SYR IV PRN (22:46)
[2025-05-13 23:17] LABS: Appearance Urine Clear (Clear); Bacteria Urine Automated None Seen (None Seen); Glucose Urine UA Trace (Negative); RBC Urine Automated 0-2 /hpf (0-2); WBC Urine Automated 0-5 /hpf (0-5)
[2025-05-13] MEDS: MAGNESIUM SULFATE / D5W 1 GM/100 ML BAG IV ONE (23:28)
[2025-05-14] MEDS: LEVOTHYROXINE SODIUM 75 MCG TABLET PO SCH (07:52)
[2025-05-14 09:49] LABS: Hematocrit (blood only) 41.8 % (37.0-47.0); Hemoglobin 14.2 g/dL (12.0-16.0); Mean Corpuscular Hemoglobin 29.8 pg (25.0-34.0); Mean Corpuscular Volume 87.6 fL (80.0-100.0); Platelet Count 160 K/uL (130-400); RDW Standard Deviation 45.8 fL (36.4-46.3); Red Blood Count 4.77 M/uL (4.20-5.40); White Blood Count 14.94 K/ul (4.8-10.8)
[2025-05-14 10:03] LABS: Alanine Aminotransferase 10.0 U/L (7-52); Albumin Globulin Ratio 1.3 (0.9-2); Albumin Level 3.3 gm/dl (3.4-5.0); Alkaline Phosphatase 90.0 U/L (34-104); Anion Gap 10.0 (3-11); Bilirubin,Total 0.8 mg/dl (0.2-1.0); Blood Urea Nitrogen 23.0 mg/dl (6-23); Calcium 8.6 mg/dl (8.6-10.3); Carbon Dioxide 23.0 mmol/L (21-32); Chloride 95.0 mmol/L (98-107); Creatinine Clr Calc Pharmacy 27.9 ml/min; Globulin 2.6 gm/dl (2.5-4.0); Glucose 92.0 mg/dl (70-99(Fasting)); Potassium 3.8 mmol/L (3.5-5.1); Sodium 128.0 mmol/L (136-145); Total Protein 5.9 gm/dl (6.0-8.3)
[2025-05-14 10:15] LABS: Acanthocytes 1+; Dohle Bodies 1+; Immature Granulocytes # (auto) 0.10 K/uL (0.01-0.20); Immature Granulocytes % (auto) 0.7 %; Polychromasia 1+; Toxic Granulation 1+
[2025-05-14] MEDS: CALCIUM CARBONATE 500 MG CHEWABLE TAB PO ONE (10:52)
--- NOTE | 2025-05-14 11:16 | Gastroenterology Progress Note ---
Date of Service May 14, 2025 Assessment & Plan (1) C. difficile colitis: (2) Common bile duct stone: Plan 89yowf with h/o C.diff pancolitis is seen today on GI rounds for evaluation of incidental finding of 22mm stone on CT scan suggestive of choledocholithiasis. (1) Choledocholithiasis. - LFTs stable with T-Bili 0.7, AST 23, ALT 15, Alk Phos 105. - See by covering GI over weekend. Recommend obtain MRCP once patient starts to improve with consideration of ERCP once C.diff treated. (2) C.diff - Patient noting stools are starting to slow down this morning. - Continue with Oral vancomycin. Please see comments from Supervising Physician as we'll continue to adjust plan of care as clinical condition evolves. Admission and Anticipated Discharge Date Admission Date: May 13, 2025 Supervising Physician Co-Signing Physician Notes C. difficile appears to be responding to vancomycin. Decreased number of bowel movements. Liver test entirely normal there is a question of a common duct stone. No urgency on performance of MRCP. As of 6 PM she has not had a period I would put it off till tomorrow. Nursing advised Subjective 89yowf with h/o hypothyroidism, CHF, ARF is seen today on GI rounds for follow up of biliary stone and C.diff. Patient presented to [facility] ER with diarrhea and abdominal pain. CT revealed pancolitis and cultures consistent with C.diff for which she started on treatment yesterday. She was also incidentally noted to have an elevated LFTs and a stone measuring 22mm. Today she notes mild improvement, but still has generalized abdominal discomfort. Her last BM was this morning, but she went several times over night. She denies any fevers, vomiting, melena, hematochezia. Pertinent Diagnostics - CBC - 14.2g/dl, 41.8, Plt 160, WBC 14.94, LFTs - FINDINGS: The visualized lung bases are clear. Sliding hiatus hernia noted. Evaluation of the abdominal and pelvic visceral organs is limited without intravenous contrast. The unenhanced liver, spleen, pancreas, and adrenal glands are grossly unremarkable. About 16 x 16 mm sized hypodense lesion is noted in segment IV of liver. The gallbladder distended and shows a calculus of size 22 mm with internal hyperdense sludge without cholecystitis. Common bile duct is dilated with a hyperdense calculus of size 4 mm at distal end. The kidneys are normal in size and attenuation without obvious calcification. There is no hydronephrosis or perinephric stranding. The ureters are normal in caliber. No adenopathy or fluid collections are seen. Diffuse mucosal thickening with adjacent mesenteric fat stranding is noted involving cecum, ascending colon, hepatic and splenic flexure, descending , sigmoid colon and rectum - suggest possibility of colitis changes - clinical correlation suggested. Multiple small uncomplicated sigmoid colonic diverticulosis No imaging evidence of appendicitis. The aorta is normal in caliber. The urinary bladder is normal in contour. Pelvic viscera are grossly unremarkable. Degenerative changes involving spine in the form of multilevel marginal osteophytes, disc space reduction and facetal arthrosis. Severe osteoarthritis of bilateral hip joints. IMPRESSION: 1. Uncomplicated cholelithiasis. 2. Common bile duct is dilated with a hyperdense calculus of size 4 mm at distal end. Suggestive of choledocholithiasis. 3. Diffuse mucosal thickening with adjacent mesenteric fat stranding is noted involving cecum, ascending colon, hepatic and splenic flexure, descending , sigmoid colon and rectum - suggest possibility of colitis changes - clinical correlation suggested. 4. Multiple small uncomplicated sigmoid colonic diverticulosis. 5. Sliding hiatus hernia noted. 6. About 16 x 16 mm sized hypodense lesion is noted in segment IV of liver. 7. Severe osteoarthritis of bilateral hip joints. 8. Spondylosis changes involving visualized spine. Review of Systems Review of Systems: See HPI Physical Exam Physical Exam: Constitutional: NAD. Alert. Answering questions appropriately. Respiratory: Breathing is even, non-labored. Lungs dunaway are clear to auscultation anteriorly. Cardiovascular: Regular Rate and Rhythm, no murmurs, rubs or gallops appreciated . Gastrointestinal (Abdomen): Normoactive bowel sounds x4, soft, mildly tender throughout without guarding or rebound tenderness. Musculoskeletal: Lying in bed comfortably. No peripheral edema. Results & Data Results & Data Vital Signs (Past 12 Hours) Vital Signs Temp Pulse Pulse Resp BP BP Pulse Ox 05/14/25 09:29 05/14/25 08:16 99.0 F 107 H 17 114/72 98 05/14/25 06:10 96 H 05/14/25 04:49 05/14/25 02:45 97.7 F 96 H 16 113/61 98 05/13/25 23:28 99.0 F Pulse Ox O2 Del Method O2 Del Method O2 Flow Rate O2 Flow Rate 05/14/25 09:29 Nasal Cannula 2 05/14/25 08:16 Room Air 05/14/25 06:10 05/14/25 04:49 98 Nasal Cannula 2 05/14/25 02:45 Nasal Cannula 2 05/13/25 23:28 PG Care Time/CCT Total # of Minutes Spent Total Time Spent with Patient: Total time spent is greater than 50% in coordination of care (as documented) at patient's floor/unit and/or counseling patient: Coding Level of Care Code 53371 SUB INP/OBS CARE 3/50MIN Diagnoses C. difficile colitis A04.72 Common bile duct stone K80.50
--- NOTE | 2025-05-14 12:41 | Hospitalist Progress Note ---
<Statement entered by Thompson Landry, DO - 05/14/25 14:23> I have seen and examined the patient and have discussed the case with the advance practice provider. I have reviewed the advanced practitioner's documentation, and I agree with, and take responsibility for that plan of care. Still complaining of some abdominal discomfort. Stools slowing down Continue oral vancomycin MRCP as recommended by GI Plan of care as outlined below I spent a total of 14 minutes coordinating, documenting, and providing care for this patient excluding time spent by another provider/QHP. Date of Service May 14, 2025 Assessment & Plan (1) Abdominal pain: (2) C. difficile colitis: (3) Choledocholithiasis: (4) CLAY (acute kidney injury): (5) Hyponatremia: Plan Patient is an 89y/o F with PMHx significant for A-fib anticoagulated on Eliquis, hypertension, hyperlipidemia, hypothyroidism and chronic traumatic RLE wound who presented to the ED on 05/13/2025 with c/o watery diarrhea, abdominal pain and worsening generalized weakness x 3 days with associated poor p.o. intake. CTAP with evidence of pancolitis, (+) C. diff gene and toxin. Patient with complex health course since January 2025. Recent confinement at [facility] in January 2025 for possible PNA, UTI, traumatic rhabdomyolysis/chronic RLE wound. Was subsequently DC'd to [facility] following that hospitalization. 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 C. difficile pancolitis POA In setting of recent admission; had been on ABX for her RLE wound, also had wound vac in place. Continue p.o. vancomycin course, isolation precautions. Large volume of loose watery stools overnight but appeared to be slowing down this morning, abdominal pain improving. Still quite dry on exam this morning and mildly hypotensive >> will resume gentle IVF for now. Febrile overnight, resolved s/p Tylenol and ice pack application. Blood cultures reviewed and without growth per preliminary results. Monitor for fever recurrence. For now, no changes in above management. Choledocholithiasis CTAP with dilated CBD with hyperdense calculus measuring 4 mm at the distal end suggestive of choledocholithiasis. LFTs, including T. bili, remain grossly unremarkable. GI consulted for further evaluation of this finding >> feels this is an incidental finding. MRCP pending to be completed today. If small stone confirmed with MRCP, then will need to consider ERCP once C. diff infection starts to improve. CLAY In setting of poor p.o. intake, GI losses. Creatinine slowly improving (creatinine previously 0.8 as of 1yr ago per OP records). Continue gentle IVF as per above. Avoid nephrotoxic agents as able. Hypotonic, hypovolemic hyponatremia In setting of acute infection, dehydration, subtherapeutic treatment of hypothyroidism and diuretic use. Holding home diuretics. Likely contributing to fatigue/generalized weakness. Levothyroxine dose adjusted, gentle IVF onboard as per above. Some slight improvement appreciated on repeat labs today (127 >> 128); continue to monitor. CHF Recently diagnosed at [facility] (records requested and pending). Was started on diuretics last week, currently on hold as per above. 2+ RLE pitting edema appreciated on exam this morning (unchanged from prior per pt) >> had unremarkable RLE venous reflux duplex last month. Atrial fibrillation chronically anticoagulated on Eliquis Continue amiodarone, diltiazem and Eliquis. HR remains elevated which is likely in response to her significant dehydration, active infection. HTN BP remains on lower side >> holding diuretics for now as per above. Chronic traumatic RLE wound Follows with [facility] wound care, WOCN consulted. Hypothyroidism TSH elevated at 23.958, up from 5.207 in February 2025. Increased levothyroxine to 50mcg dailyBB >> f/u with repeat TFTs in 6-8 weeks on OP basis. DVT Prophylaxis: Eliquis Code Status: DNR/DNI PCP: Joaquina Haji MD Disposition: DC plans uncertain at this time, appreciate PT/OT evals to anticipate DC needs. Patient lives with her great nephew. Called daughter to provide update this afternoon. Requesting daily updates. Ms. Daylin Patel (daughter), contact #[phone]. Mr. Bob Patel (grandson), contact #[phone]. Patient seen in collaboration with Dr. Landry. Please see addendum. I spent a total of 58 minutes coordinating, documenting, and providing care for this patient excluding time spent in the performance of separately billed services or time spent by another provider/QHP. This included personally reviewing all current laboratories and imaging studies, medical reconciliation, outpatient chart review and discussion with specialists. This chart was completed in part utilizing Speech Voice Recognition Software. Grammatical errors, random word insertions, pronoun errors, and incomplete sentences are an occasional consequence of this system due to software limitations, ambient noise, and hardware issues. Any formal questions or concerns about the content, text, or information contained within the body of this dictation should be directly addressed to the provider for clarification. Admission and Anticipated Discharge Date Admission Date: May 13, 2025 Subjective Patient seen and examined in room N282-2. Several bouts of loose stool overnight. Some ongoing mild abdominal distention and bloating but denies any major abdominal pain. No reported N/V. Wound care consulted for chronic RLE wound. MRCP pending for further evaluation of choledocholithiasis seen on CTAP yesterday. Review of Systems Review of Systems: At least ten systems reviewed and negative, except as noted in the subjective section. Physical Exam Physical Exam: General: Elderly F, laying down in bed. Asleep when entering the room but easily awoken. A&Ox3, conversing appropriately. Ill-appearing. HEENT: Normocephalic, atraumatic. Dry mucous membranes of the oropharynx. Respiratory: Normal respiratory effort, decreased breath sounds bilaterally. Cardiovascular: Tachycardic rate, irregularly irregular rhythm. 2+ RLE edema. Abdomen/GI: Active bowel sounds, mild distention but soft, mild upper abdominal discomfort with palpation. Normal bowel sounds, soft, nontender to palpation in all quadrants. Extremities/Musculoskeletal: + chronic RLE wound covered by dressing which is C/D/I (wound not directly visualized), able to actively move all extremities. Neurologic: No overt focal deficits, CN's II-XI not formally tested but appear grossly intact bilaterally. Results & Data Results & Data Vital Signs (Past 12 Hours) Vital Signs Temp Pulse Pulse Resp BP BP Pulse Ox 05/14/25 09:29 05/14/25 08:16 37.2 C 107 H 17 114/72 98 05/14/25 06:10 96 H 05/14/25 04:49 05/14/25 02:45 36.5 C 96 H 16 113/61 98 Pulse Ox O2 Del Method O2 Del Method O2 Flow Rate O2 Flow Rate 05/14/25 09:29 Nasal Cannula 2 05/14/25 08:16 Room Air 05/14/25 06:10 05/14/25 04:49 98 Nasal Cannula 2 05/14/25 02:45 Nasal Cannula 2 Laboratory Results Short CBC 05/14/25 Range/Units 09:00 WBC 14.94 H (4.8-10.8) K/ul Hgb 14.2 (12.0-16.0) g/dL Hct 41.8 (37.0-47.0) % Plt Count 160 (130-400) K/uL BMP 05/13/25 05/14/25 12:05 09:00 Sodium 127 L 128 L Potassium 3.8 Chloride 95 L Carbon Dioxide 23 BUN 23 Creatinine 1.46 H Glucose 92 Calcium 8.6 Liver Function 05/14/25 Range/Units 09:00 Total Bilirubin 0.8 (0.2-1.0) mg/dl AST 18 (13-39) U/L ALT 10 (7-52) U/L Alkaline Phosphatase 90 (34-104) U/L Albumin 3.3 L (3.4-5.0) gm/dl Urine 05/13/25 Range/Units 22:40 Urine Color Dark Yellow Urine Appearance Clear (Clear) Urine pH 5.0 (4.5-7.5) Ur Specific [place] 1.019 (1.000-1.030) Urine Protein 1+ H (Negative) Urine Glucose (UA) Trace H (Negative)
[2025-05-14] MEDS: SODIUM CHLORIDE 0.9% 1,000 ML IV SCH (13:00)
--- NOTE | 2025-05-14 19:48 | Communication Note ---
Date of Service: May 14, 2025 Patient noted to be febrile and tachycardic. Moist nonproductive cough. Concern for aspiration as per RN. Patient coughed a few times after drinking water. Chest x-ray as per interpretation right lower lobe infiltrate AP HAP/possible aspiration pneumonia Ertapenem Aspiration precautions GUIDE FOREIGN TOUR eval
[2025-05-14] MEDS ORDERED: ACETAMINOPHEN 1,000 MG/100 ML VIAL IV PRN (19:50)
[2025-05-14] MEDS: ACETAMINOPHEN 1,000 MG/100 ML VIAL IV STA (20:47)
--- NOTE | 2025-05-14 21:15 | XRay Report ---
Exam(s): XR CXR 1 VIEW EXAM: XR Chest, 1 View CLINICAL HISTORY: Reason for exam: cough. TECHNIQUE: Frontal view of the chest. COMPARISON: Chest radiograph on 05/13/2025 FINDINGS: Hardware: None. Lungs/pleura: Mild right lower lung opacity. No pleural effusion or pneumothorax. Heart/mediastinum: Normal. No cardiomegaly. Soft tissues: Unremarkable. Bones: No acute fracture. Upper abdomen: Normal. IMPRESSION: Mild right lower lung opacity may represent atelectasis versus infectious/inflammatory process. Electronically signed by: Cecilia Jarquin M.D. 05/14/25 21:13 PM
[2025-05-14 21:28] LABS: Influenza A virus by PCR Negative (Neg); Influenza B virus by PCR Negative (Neg); SARS CoV2 RNA(COVID-19) Ceph NEGATIVE (Negative)
[2025-05-14 21:40] LABS: Magnesium 1.9 mg/dl (1.7-2.4)
[2025-05-14] MEDS: ERTAPENEM 1000MG 500 MG/5 ML SYR IV SCH (23:08)
[2025-05-15 07:16] LABS: Hematocrit (blood only) 35.7 % (37.0-47.0); Hemoglobin 12.2 g/dL (12.0-16.0); Mean Corpuscular Hemoglobin 29.3 pg (25.0-34.0); Mean Corpuscular Volume 85.8 fL (80.0-100.0); Platelet Count 170 K/uL (130-400); RDW Standard Deviation 44.1 fL (36.4-46.3); Red Blood Count 4.16 M/uL (4.20-5.40); White Blood Count 18.60 K/ul (4.8-10.8)
[2025-05-15 07:37] LABS: Alanine Aminotransferase 11.0 U/L (7-52); Albumin Globulin Ratio 1.2 (0.9-2); Albumin Level 2.8 gm/dl (3.4-5.0); Alkaline Phosphatase 101.0 U/L (34-104); Anion Gap 9.0 (3-11); Bilirubin,Total 0.5 mg/dl (0.2-1.0); Blood Urea Nitrogen 25.0 mg/dl (6-23); Calcium 7.8 mg/dl (8.6-10.3); Carbon Dioxide 20.0 mmol/L (21-32); Chloride 99.0 mmol/L (98-107); Creatinine Clr Calc Pharmacy 27.2 ml/min; Globulin 2.3 gm/dl (2.5-4.0); Glucose 97.0 mg/dl (70-99(Fasting)); Potassium 3.4 mmol/L (3.5-5.1); Sodium 128.0 mmol/L (136-145); Total Protein 5.1 gm/dl (6.0-8.3)
[2025-05-15] MEDS: POTASSIUM CHLORIDE / WTR 10 MEQ/100 ML PLCT IV SCH ×2 (10:25→16:38)
--- NOTE | 2025-05-15 13:04 | XRay Report ---
XR abdomen 2V w PA chest CLINICAL HISTORY: Aspiration PNA. Check for ileus COMPARISON STUDY: 05/14/2025 chest x-ray and abdominal CT of 05/13/2025 FINDINGS: Heart size and pulmonary vasculature are normal. Inspiration is shallow. No consolidation o r pleural effusion seen. No pneumothorax. There is thumbprinting at the colon suggesting colitis. No bowel distention seen. No gross free air. Stable gallstone right upper quadrant. Stable severe degenerative changes of the lumbar spine and hip s. IMPRESSION: 1. No pneumonia seen. 2. Findings suggesting colitis persist. No bowel distention seen. ACT 112: Negative or not required by law. Electronically signed by: Javier Ortiz M.D. 05/15/2025 1:02 PM
--- NOTE | 2025-05-15 13:05 | Hospitalist Progress Note ---
<Statement entered by Thompson Landry, DO - 05/15/25 14:04> I have seen and examined the patient and have discussed the case with the advance practice provider. I have reviewed the advanced practitioner's documentation, and I agree with, and take responsibility for that plan of care. Patient continues to look significantly ill. WBCs increasing, blood pressure borderline low, Low-grade fever, continued large amounts of stool. Appears patient not responding to oral vancomycin, agree with changed to Dificid Increase IV fluid rate and also give additional fluid bolus, suspect not keeping up with liquid losses from her diarrhea. Personally reviewed abdominal x-ray, no evidence of ileus Continue to monitor laboratory studies Additional plan of care as outlined below I spent a total of 24 minutes coordinating, documenting, and providing care for this patient excluding time spent by another provider/QHP. Date of Service May 15, 2025 Assessment & Plan (1) Abdominal pain: (2) C. difficile colitis: (3) Choledocholithiasis: (4) CLAY (acute kidney injury): (5) Hyponatremia: Plan Patient is an 89y/o F with PMHx significant for A-fib anticoagulated on Eliquis, hypertension, hyperlipidemia, hypothyroidism and chronic traumatic RLE wound who presented to the ED on 05/13/2025 with c/o watery diarrhea, abdominal pain and worsening generalized weakness x 3 days with associated poor p.o. intake. CTAP with evidence of pancolitis, (+) C. diff gene and toxin. Patient with complex health course since January 2025. Recent confinement at [facility] in January 2025 for possible PNA, UTI, traumatic rhabdomyolysis/chronic RLE wound. Was subsequently DC'd to [facility] following that hospitalization. 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 C. difficile pancolitis POA In setting of recent admissions, had been on ABX for her RLE wound. Has been on p.o. vancomycin course however continues to have copious amounts of watery diarrhea with uptrending leukocytosis, fever spikes. Feel patient is not responding well to p.o. vancomycin, will switch to Dificid today and monitor response. Still quite dry on exam this morning and persistently hypotensive in light of significant GI losses, will increase IVF rate for now. Blood cultures reviewed and without growth per preliminary results. Tachycardia and hypotension 2/2 above ISO continuous GI losses. IVF onboard. Hypokalemia 2/2 above, repleted via IV. Continue to monitor and replete PRN. Check mag level in AM. C/f aspiration overnight Per RN sign out, patient with bout of coughing after drinking water overnight. Also was noted to have a moist nonproductive cough. Gun Synchronizer coverage was made aware, RVP and CXR were ordered. RVP negative. CXR did show a mild right lower lobe opacity therefore IV ertapenem was started due to concern of aspiration PNA development. On exam this morning, patient without any significant cardiopulmonary complaints. Has actually had a moist nonproductive cough for a couple of days, patient feels this is unchanged. Has been on 2L NC during the hospitalization (unclear reasoning) but will trial her off this. Did have some faint RLL inspiratory crackles on exam but feel these are atelectatic in nature rather than infectious. ISP ordered. Plus patient had an abd XR with PA chest done this afternoon (ordered by GI) which did not show any evidence of a pulmonary consolidation. And patient was seen by [facility] earlier this AM, per RN, and they did not witness any [place] evidence of aspiration. Patient was cleared for resumption of clear liquid diet by [facility]. Feel uptrending leukocytosis and recurrence of fevers were due to poor response to vancomycin in setting of above. Choledocholithiasis CTAP on admission with dilated CBD with hyperdense calculus measuring 4 mm at the distal end suggestive of choledocholithiasis. LFTs, including T. bili, remain grossly unremarkable. GI consulted for further evaluation of this finding >> feels this is an incidental finding. Will eventually need MRCP once clinical status starts to improve >> no urgency on performance of this given LFTs remain normal. If small stone confirmed with MRCP, then will need to consider ERCP. CLAY In setting of poor p.o. intake, GI losses. Creatinine previously 0.8 as of 1yr ago per OP records. Continue IVF as per above. Avoid nephrotoxic agents as able. Hypotonic, hypovolemic hyponatremia In setting of acute infection, dehydration, subtherapeutic treatment of hypothyroidism and diuretic use. Holding home diuretics. Likely contributing to fatigue/generalized weakness. Levothyroxine dose adjusted, IVF onboard as per above. Some slight improvement appreciated (127 >> 128); continue to monitor. Urinary retention Noted by nursing overnight, bladder scan this morning >500cc. Davis catheter placed this morning. Unclear etiology at this time. CHF Recently diagnosed at [facility] (records requested and pending). Was started on diuretics last week, currently on hold as per above. 3+ RLE pitting edema appreciated on exam this morning (2+ RLE yesterday) >> had grossly unremarkable RLE venous reflux duplex last month, no DVT. Has some RLE tenderness on exam but feel this is more related to her chronic wound, doubt DVT given chronic anticoagulation therapy. Atrial fibrillation chronically anticoagulated on Eliquis Hold diltiazem for now given hypotension, continue amiodarone for the time being. Continue Eliquis. HR remains elevated which is likely in response to her significant dehydration, active infection as per above. HTN Remains hypotensive >> holding diuretics, diltiazem for now as per above. Pressure ulcer of R anterior leg, stage 4, POA Pressure ulcer of R ischium, stage 3, POA Follows with [facility] wound care, WOCN consulted. Hypothyroidism TSH elevated at 23.958, up from 5.207 in February 2025. Increased levothyroxine to 50mcg dailyBB >> f/u with repeat TFTs in 6-8 weeks on OP basis. DVT Prophylaxis: Eliquis Code Status: DNR/DNI PCP: Joaquina Haji MD Disposition: DC plans uncertain at this time, appreciate PT/OT evals to anticipa te DC needs. Patient lives with her great nephew. Called daughter to provide update again this afternoon. Requesting daily updates . Ms. Daylin Patel (daughter), contact #[phone]. Mr. Bob Patel (grandson), contact #[phone]. Patient seen in collaboration with Dr. Landry. Please see addendum. I spent a total of 65 minutes coordinating, documenting, and providing care for this patient excluding time spent in the performance of separately billed services or time spent by another provider/QHP. This included personally reviewing all current laboratories and imaging studies, medical reconciliation, outpatient chart review and discussion with specialists. This chart was completed in part utilizing Speech Voice Recognition Software. Grammatical errors, random word insertions, pronoun errors, and incomplete sentences are an occasional consequence of this system due to software limitations, ambient noise, and hardware issues. Any formal questions or concerns about the content, text, or information contained within the body of this dictation should be directly addressed to the provider for clarification. Admission and Anticipated Discharge Date Admission Date: May 13, 2025 Subjective Patient seen and examined in room N282-2. Still with copious amounts of watery diarrhea per RN. Also noted to be retaining urine per RN. Order has been placed for Davis catheter placement. Still feeling quite lethargic and "worn down." Was started on IV ertapenem overnight due to concern for aspiration PNA as patient coughed after taking sips of water. Patient without any major cardiopulmonary complaints; specifically, denies any SOB. Has a moist-sounding nonproductive cough which she feels is unchanged from days prior. Currently on 2L NC. Review of Systems Review of Systems: At least ten systems reviewed and negative, except as noted in the subjective section. Physical Exam Physical Exam: General: Elderly F, laying down in bed. Ill-appearing. Lethargic however remains A&Ox3. HEENT: Normocephalic, atraumatic. Dry mucous membranes of the oropharynx. Respiratory: Normal respiratory effort, decreased breath sounds bilaterally, + faint RLL crackles. Cardiovascular: Tachycardic rate, irregularly irregular rhythm. 3+ RLE edema. Abdomen/GI: Active bowel sounds, mild distention but soft (improved from prior), mild upper abdominal discomfort with palpation. Extremities/Musculoskeletal: + chronic RLE wound covered by dressing which is C/D/I (wound not directly visualized), able to actively move all extremities. Neurologic: No overt focal deficits, CN's II-XI not formally tested but appear grossly intact bilaterally. Results & Data Results & Data Vital Signs (Past 12 Hours) Vital Signs Temp Pulse Pulse Resp BP BP Pulse Ox 05/15/25 10:48 95 H 05/15/25 07:57 36.8 C 102 H 20 99/60 L 98 05/15/25 06:20 105/66 05/15/25 04:42 05/15/25 03:19 91/54 L 05/15/25 03:09 37.4 C 100 H 18 91/52 L 93 05/15/25 02:02 97/64 L Pulse Ox O2 Del Method O2 Del Method O2 Flow Rate O2 Flow Rate 05/15/25 10:48 05/15/25 07:57 Nasal Cannula 2 05/15/25 06:20 05/15/25 04:42 98 Nasal Cannula 2 05/15/25 03:19 05/15/25 03:09 Nasal Cannula 2 05/15/25 02:02 Laboratory Results Short CBC 05/15/25 Range/Units 06:57 WBC 18.60 H (4.8-10.8) K/ul Hgb 12.2 (12.0-16.0) g/dL Hct 35.7 L (37.0-47.0) % Plt Count 170 (130-400) K/uL BMP 05/15/25 06:57 Sodium 128 L Potassium 3.4 L Chloride 99 Carbon Dioxide 20 L BUN 25 H Creatinine 1.52 H Glucose 97 Calcium 7.8 L Liver Function 05/15/25 Range/Units 06:57 Total Bilirubin 0.5 (0.2-1.0) mg/dl AST 15 (13-39) U/L ALT 11 (7-52) U/L Alkaline Phosphatase 101 (34-104) U/L Albumin 2.8 L (3.4-5.0) gm/dl
[2025-05-15] MEDS ORDERED: Nursing to Pharmacy Communication SCH (13:30)
--- NOTE | 2025-05-15 13:44 | Gastroenterology Progress Note ---
Date of Service May 15, 2025 Assessment & Plan (1) Choledocholithiasis: (2) C. difficile colitis: Plan 89yowf with h/o C.diff pancolitis is seen today on GI rounds for evaluation of incidental finding of 22mm stone on CT scan suggestive of choledocholithiasis. (1) Choledocholithiasis. - LFTs stable with T-Bili 0.7, AST 23, ALT 15, Alk Phos 105. - See by covering GI over weekend. Recommend obtain MRCP once patient starts to improve with consideration of ERCP once C.diff treated. (2) C.diff - Patient is continuing to have diarrhea over night. - Continue with Oral vancomycin and supportive care. (3) Aspiration - - Reported to be self induced while laying down and drinking. Appreciate assistance from Speech therapy. - We'll obtain and abdominal series to ensure there's no ileus related to her C.diff. Please see comments from Supervising Physician as we'll continue to adjust plan of care as clinical condition evolves. Admission and Anticipated Discharge Date Admission Date: May 13, 2025 Supervising Physician Co-Signing Physician Notes Reviewed above and agree. May be a few days before her diarrhea settles. Liver tests are normal though I think she can proceed with her MRCP on the 05/17/2025. Will review that when able Subjective 89yowf with h/o hypothyroidism, CHF, ARF is seen today on GI rounds for follow up of biliary stone and C.diff. HPI 05/15/25 Patient seen today on daily rounds for C.diff and biliary stone. She was unfortunately diagnosed with aspiration pneumonia overnight that presented with fevers, rhonchi and infiltrate on CXR. She was seen by Speech pathology and admits to drinking a glass of water while laying down that resulted in her coughing. Per my discussions with Speech therapy she did well on her assessment and they planned to advance her diet which is fine from a GI perspective. Clinically she reports she continues to have diarrhea. She denies any abdominal pain, N/V, melena or hematochezia. I reviewed her LFTs- These remain within the normal range today. WBC did increased to 18k/ul. [facility] 05/14/25 Patient presented to [facility] ER with diarrhea and abdominal pain. CT revealed pancolitis and cultures consistent with C.diff for which she started on treatment yesterday. She was also incidentally noted to have an elevated LFTs and a stone measuring 22mm. Today she notes mild improvement, but still has generalized abdominal discomfort. Her last BM was this morning, but she went several times over night. She denies any fevers, vomiting, melena, hematochezia. Pertinent Diagnostics - CBC - 14.2g/dl, 41.8, Plt 160, WBC 14.94, LFTs - FINDINGS: The visualized lung bases are clear. Sliding hiatus hernia noted. Evaluation of the abdominal and pelvic visceral organs is limited without intravenous contrast. The unenhanced liver, spleen, pancreas, and adrenal glands are grossly unremarkable. About 16 x 16 mm sized hypodense lesion is noted in segment IV of liver. The gallbladder distended and shows a calculus of size 22 mm with internal hyperdense sludge without cholecystitis. Common bile duct is dilated with a hyperdense calculus of size 4 mm at distal end. The kidneys are normal in size and attenuation without obvious calcification. There is no hydronephrosis or perinephric stranding. The ureters are normal in caliber. No adenopathy or fluid collections are seen. Diffuse mucosal thickening with adjacent mesenteric fat stranding is noted involving cecum, ascending colon, hepatic and splenic flexure, descending , sigmoid colon and rectum - suggest possibility of colitis changes - clinical correlation suggested. Multiple small uncomplicated sigmoid colonic diverticulosis No imaging evidence of appendicitis. The aorta is normal in caliber. The urinary bladder is normal in contour. Pelvic viscera are grossly unremarkable. Degenerative changes involving spine in the form of multilevel marginal osteophytes, disc space reduction and facetal arthrosis. Severe osteoarthritis of bilateral hip joints. IMPRESSION: 1. Uncomplicated cholelithiasis. 2. Common bile duct is dilated with a hyperdense calculus of size 4 mm at distal end. Suggestive of choledocholithiasis. 3. Diffuse mucosal thickening with adjacent mesenteric fat stranding is noted involving cecum, ascending colon, hepatic and splenic flexure, descending , sigmoid colon and rectum - suggest possibility of colitis changes - clinical correlation suggested. 4. Multiple small uncomplicated sigmoid colonic diverticulosis. 5. Sliding hiatus hernia noted. 6. About 16 x 16 mm sized hypodense lesion is noted in segment IV of liver. 7. Severe osteoarthritis of bilateral hip joints. 8. Spondylosis changes involving visualized spine. Review of Systems Review of Systems: See HPI Physical Exam Physical Exam: Constitutional: NAD. Alert. Answering questions appropriately. Respiratory: Breathing is even, non-labored. Lungs dunaway are clear to auscultation anteriorly. Cardiovascular: Regular Rate and Rhythm, no murmurs, rubs or gallops appreciated. Gastrointestinal (Abdomen): Normoactive bowel sounds x4, soft, non-distended, non-tender. Musculoskeletal: Lying in bed comfortably. No peripheral edema. Results & Data Results & Data Vital Signs (Past 12 Hours) Vital Signs Temp Pulse Pulse Resp BP BP Pulse Ox 05/15/25 10:48 95 H 05/15/25 07:57 98.2 F 102 H 20 99/60 L 98 05/15/25 06:20 105/66 05/15/25 04:42 05/15/25 03:19 91/54 L 05/15/25 03:09 99.3 F 100 H 18 91/52 L 93 05/15/25 02:02 97/64 L Pulse Ox O2 Del Method O2 Del Method O2 Flow Rate O2 Flow Rate 05/15/25 10:48 05/15/25 07:57 Nasal Cannula 2 05/15/25 06:20 05/15/25 04:42 98 Nasal Cannula 2 05/15/25 03:19 05/15/25 03:09 Nasal Cannula 2 05/15/25 02:02 PG Care Time/CCT Total # of Minutes Spent Total Time Spent with Patient: Total time spent is greater than 50% in coordination of care (as documented) at patient's floor/unit and/or counseling patient: Coding Level of Care Code 76893 SUB INP/OBS CARE 235MIN Diagnoses Choledocholithiasis K80.50 C. difficile colitis A04.72
[2025-05-15] MEDS: FIDAXOMICIN 200 MG TAB PO SCH (14:01)
[2025-05-15] MEDS: SODIUM CHLORIDE 0.9% 500 ML IV ONE (14:23)
[2025-05-15] MEDS ORDERED: ERTAPENEM 500MG 500 MG/5 ML SYR IV SCH (21:45)
[2025-05-16 07:56] LABS: Hematocrit (blood only) 34.4 % (37.0-47.0); Hemoglobin 11.4 g/dL (12.0-16.0); Immature Granulocytes # (auto) 0.11 K/uL (0.01-0.20); Immature Granulocytes % (auto) 0.9 %; Mean Corpuscular Hemoglobin 29.3 pg (25.0-34.0); Mean Corpuscular Volume 88.4 fL (80.0-100.0); Platelet Count 167 K/uL (130-400); RDW Standard Deviation 46.0 fL (36.4-46.3); Red Blood Count 3.89 M/uL (4.20-5.40); White Blood Count 12.62 K/ul (4.8-10.8)
[2025-05-16 08:18] LABS: Alanine Aminotransferase 9.0 U/L (7-52); Albumin Globulin Ratio 1.2 (0.9-2); Albumin Level 2.6 gm/dl (3.4-5.0); Alkaline Phosphatase 73.0 U/L (34-104); Anion Gap 6.0 (3-11); Bilirubin,Total 0.3 mg/dl (0.2-1.0); Blood Urea Nitrogen 25.0 mg/dl (6-23); Calcium 7.8 mg/dl (8.6-10.3); Carbon Dioxide 19.0 mmol/L (21-32); Chloride 105.0 mmol/L (98-107); Creatinine Clr Calc Pharmacy 32.8 ml/min; Globulin 2.1 gm/dl (2.5-4.0); Glucose 91.0 mg/dl (70-99(Fasting)); Magnesium 2.0 mg/dl (1.7-2.4); Potassium 3.4 mmol/L (3.5-5.1); Sodium 130.0 mmol/L (136-145); Total Protein 4.7 gm/dl (6.0-8.3)
[2025-05-16] MEDS: POTASSIUM CHLORIDE / WTR 10 MEQ/100 ML PLCT IV SCH (10:07)
--- NOTE | 2025-05-16 11:20 | XRay Report ---
XR chest 1V portable CLINICAL HISTORY: re eval for aspiration COMPARISON STUDY: 05/15/2025 FINDINGS: Heart size and pulmonary vasculature are normal. There is stable minimal stranding in the l elizabet bases, likely scarring or atelectasis. No new consolidation or pleural effusion. No pneumothorax. Stable old fracture proximal left humerus. IMPRESSION: No acute pneumonia seen. ACT 112: Negative or not required by law. Electronically signed by: Javier Ortiz M.D. 05/16/2025 11:18 AM
--- NOTE | 2025-05-16 11:49 | Hospitalist Progress Note ---
Date of Service May 16, 2025 Assessment & Plan (1) Abdominal pain: (2) C. difficile colitis: (3) Choledocholithiasis: (4) CLAY (acute kidney injury): (5) Hyponatremia: Plan Patient is an 89y/o F with PMHx significant for A-fib anticoagulated on Eliquis, hypertension, hyperlipidemia, hypothyroidism and chronic traumatic RLE wound who presented to the ED on 05/13/2025 with c/o watery diarrhea, abdominal pain and worsening generalized weakness x 3 days with associated poor p.o. intake. CTAP with evidence of pancolitis, (+) C. diff gene and toxin. Patient with complex health course since January 2025. Recent confinement at [facility] in January 2025 for possible PNA, UTI, traumatic rhabdomyolysis/chronic RLE wound. Was subsequently DC'd to [facility] following that hospitalization. Last week, patient was transferred to [facility] 2/ reported volume overload/RLE wound (awaiting records) and was DC'd home 2 days REGISTERED NURSES at this facility. C. difficile pancolitis POA In setting of recent admissions, had been on ABX for her RLE wound. Initially started on oral vanco;however switched to dificid on 05/15 due to increased wbc and not improving clinically. Pt continues to feel as if sx are not improving; although wbc downtrending to 12.62k today with persisting diarrhea CLAY Tachycardia and hypotension 2/2 above ISO continuous GI losses Pt receiving fluid bolus yesterday and has been on increased rate BP and HR improving today and having normalized will reduce fluids to 80ml/hr given worsening RLE edema Cr downtrending to 1.2, peaked at 1.73 on 05/13 Hypokalemia 2/2 above, repleted via IV. Continue to monitor and replete PRN. Recent aspiration event Pt with aspiration episode on 05/05 Initial work up included RVP and CXR were ordered. RVP negative. CXR did show a mild right lower lobe opacity therefore IV ertapenem was started due to concern of aspiration PNA development; however subsequently d/c due to Cdiff and pt not exhibiting respiratory complaints Pt remains on room air and therefore aspiration is currently ruled out repeat CXR for follow up Choledocholithiasis CTAP on admission with dilated CBD with hyperdense calculus measuring 4 mm at the distal end suggestive of choledocholithiasis. LFTs, including T. bili, remain grossly unremarkable. GI consulted for further evaluation of this finding >> feels this is an incidental finding. Will eventually need MRCP once clinical status starts to improve >> no urgency on performance of this given LFTs remain normal. If small stone confirmed with MRCP, then will need to consider ERCP. Hypotonic, hypovolemic hyponatremia 2/2 volume losses, continue holding home diuretics for now continue IVF, na 130 today Urinary retention noted during admission, spaulding placed will need to do voiding trial once more medically stable Chronic CHF w/o decompensation Recently diagnosed at [facility] (records requested and pending). Suspect chronic hfpef; however no echo available Was started on diuretics last week, currently on hold as per above. 3+ RLE pitting edema appreciated on exam this morning and had grossly unremarkable RLE venous reflux duplex last month, no DVT. doubt DVT given chronic anticoagulation therapy, suspect RLE edema 2/2 chronic wound Atrial fibrillation chronically anticoagulated on Eliquis Hold diltiazem for now given hypotension, continue amiodarone for the time being. Continue Eliquis. HR much improved, if bp remains stable can consider resuming diltiazem tomorrow HTN improving, but will continue to hold diuretics and diltiazem as pt continues to have diarrhea Pressure ulcer of R anterior leg, stage 4, POA Pressure ulcer of R ischium, stage 3, POA Follows with [facility] wound care, WOCN consulted. Hypothyroidism TSH elevated at 23.958, up from 5.207 in February 2025. Increased levothyroxine to 50mcg dailyBB >> f/u with repeat TFTs in 6-8 weeks on OP basis. DVT Prophylaxis: Eliquis currently on hold in favor of SQ Lovenox Code Status: DNR/DNI PCP: Joaquina Haji MD Disposition: PT/OT, pt going to need rehab likely, not yet medically stable for discharge. Patient lives with her great nephew. Called daughter to provide update again this afternoon. Requesting daily updates . Ms. Daylin Patel (daughter), contact #[phone]. Mr. Bob Patel (grandson), contact #[phone]. Patient seen in collaboration with Dr. Mendez. Please see addendum. I spent a total of 51 minutes coordinating, documenting, and providing care for this patient excluding time spent in the performance of separately billed services or time spent by another provider/QHP. This included personally reviewing all current laboratories and imaging studies, medical reconciliation, outpatient chart review and discussion with specialists. Admission and Anticipated Discharge Date Admission Date: May 13, 2025 Supervising Physician Co-Signing Physician Notes Pt seen and examined by me, care coordinated w/ B. JOSE A Booth, pls refer to her note for further detail. Pt is currently sitting up in chair in NAD, she is awake, alert. Says she continues to have frequent diarrhea. She was switched to Dificid yesterday. WBC is decreased. Continues to have some abd. discomfort. denies fever, chills, chest pain or shortness of breath. GI is following, MRCP is ordered. Records requested from [facility], will follow up on obtaining them. MD Vanessa Subjective Pt seen and examined in room 282-2. Follow up Cdiff colitis. Pt reports not feeling good today. She continues to have freq loose stool. She also complains of abdominal pain. She denies f/c/s, chest pain, sob, n/v. She is tolerating diet. She reports not getting out of bed since admission and has been using bed banda. Review of Systems Review of Systems: All systems reviewed & are unremarkable except as noted in HPI & below Physical Exam Physical Exam: Gen: WD/WN, Elderly, F, lying in bed, NAD, A&O x3 HEENT: Normocephalic, atraumatic, conjunctivae moist, sclerae anicteric, mucous membranes moist. Lung: Clear to Auscultation bilaterally, no wheezes/rales/rhonchi decreased BS at bases due to poor insp effort Heart: Irregular rhythm, regular rate, no murmurs, rubs, or gallops Abdomen: Soft, NT, ND +BS x 4 Extremities: RLE + 3 edema, dressing covering RLE wound CDI Skin: Warm, no rash, negative turgor.. Results & Data Results & Data Vital Signs (Past 12 Hours) Vital Signs Temp Pulse Pulse Resp BP Pulse Ox Pulse Ox 05/16/25 11:15 36.3 C L 76 18 112/72 99 05/16/25 10:44 85 05/16/25 07:42 36.4 C L 71 18 99/66 L 95 05/16/25 04:20 98 05/16/25 03:25 36.7 C 92 H 20 96/63 L 97 05/16/25 00:04 36.7 C 62 18 90/55 L 94 05/15/25 23:53 102 H O2 Del Method O2 Del Method O2 Flow Rate 05/16/25 11:15 Room Air 05/16/25 10:44 05/16/25 07:42 Room Air 05/16/25 04:20 Nasal Cannula 2 05/16/25 03:25 Room Air 05/16/25 00:04 Room Air 05/15/25 23:53 Laboratory Results I have independently reviewed and interpreted patient's labs cbc, cmp, phos, mag Medications Administered Current Inpatient Medications Acetaminophen (Acetaminophen 325 Mg Tab) 650 mg PO QID PRN PRN Reason: pain/fever Stop: 06/12/25 04:06 Last Admin: 05/13/25 22:22 Dose: 650 mg Amiodarone HCl (Amiodarone 200 Mg Tab) 400 mg PO BID NARENDRA; Taper Stop: 07/08/25 08:59 Last Admin: 05/16/25 07:51 Dose: 400 mg Diltiazem HCl (Diltiazem Hcl 180 Mg Capcr) 180 mg PO DAILY [facility] Stop: 06/12/25 08:59 Last Admin: 05/15/25 09:42 Dose: Not Given Enoxaparin Sodium (Enoxaparin 80 Mg/0.8 Ml Syr) 80 mg SQ Q24H NARENDRA Stop: 06/12/25 20:59 Last Admin: 05/15/25 20:43 Dose: 80 mg Fidaxomicin (Fidaxomicin 200 Mg Tab) 200 mg PO BID NARENDRA Stop: 05/25/25 11:44 Last Admin: 05/16/25 07:51 Dose: 200 mg Hydromorphone HCl (Hydromorphone Inj 0.5 Mg/0.5 Ml Syr) 0.25 mg IV Q4H PRN PRN Reason: Pain Stop: 05/27/25 22:45 Promethazine HCl (Phenergan) 6.25 mg in 50.25 mls @ 201 mls/hr IV Q6H PRN PRN Reason: Nausea And Vomiting Stop: 06/12/25 04:06 Last Infusion: 05/13/25 08:56 Dose: Infused Sodium Chloride (Nss) 1,000 mls @ 80 mls/hr IV .[id number] [facility] Stop: 05/17/25 12:59 Last Admin: 05/16/25 10:06 Dose: 150 mls/hr Acetaminophen (Ofirmev) 1,000 mg in 100 mls @ 400 mls/hr IV Q8H PRN PRN Reason: pain/fever Stop: 05/17/25 19:49 Levothyroxine Sodium (Levothyroxine Sodium 75 Mcg Tablet) 75 mcg PO DAILYBB [facility] Stop: 06/13/25 06:29 Last Admin: 05/16/25 06:03 Dose: 75 mcg Multivitamins/Minerals (Cerovite Adv Formula Tab) 1 tab PO DAILY [facility] Stop: 06/12/25 08:59 Last Admin: 05/16/25 07:52 Dose: 1 tab Oxycodone HCl (Oxycodone Hcl Ir 5 Mg Tab (Immediate Release)) 5 mg PO Q4H PRN PRN Reason: Pain Stop: 05/27/25 04:06
[2025-05-16] MEDS ORDERED: POTASSIUM PHOS 3 MMOL/1 ML INFUSION IV STA (12:02)
[2025-05-16] MEDS: POTASSIUM PHOSPHATE 9 MMOL in SODIUM CHLORIDE 0.9% 250 ML IV ONE (12:36)
--- NOTE | 2025-05-16 13:30 | Gastroenterology Progress Note ---
Date of Service May 16, 2025 Assessment & Plan (1) C. difficile colitis: (2) Choledocholithiasis: Plan 89yowf with h/o C.diff pancolitis is seen today on GI rounds for evaluation of incidental finding of 22mm stone on CT scan suggestive of choledocholithiasis. (1) Choledocholithiasis. - LFTs stable. - Case reviewed with attending GI. Okay to proceed with MRCP ordered for further evaluation. (2) C.diff - Patient is continuing to have diarrhea over night. - Reviewed with attending GI given ongoing persistent diarrhea. - WBC starting to trend in the right direction. - Suspect symptoms will start to improve over the next several days as toxin starts to clear. - Recommending patient continue with Dificid and supportive care. Please see Cosigning Physician notes for further recommendations as we'll continue to adjust care as symptoms evolve. Admission and Anticipated Discharge Date Admission Date: May 13, 2025 Supervising Physician Co-Signing Physician Notes Patient about the same. Her white count is decreasing which is a good sign. Diarrhea from C. difficile may take minimally of 48 to 72 hours to improve as antibiotics kill the bacteria though preformed toxin needs to be evacuated. Agree with switch to deficit. At this point as long as her white count is decreasing she is afebrile I would take a watch and see attitude from here. Her liver function tests are normal. We will check an MRCP tomorrow. Subjective Patient is an 89y/o F with PMHx significant for A-fib anticoagulated on Eliquis, hypertension, hyperlipidemia, hypothyroidism and chronic traumatic RLE wound who presented to the ED on 05/13/2025 with c/o watery diarrhea, abdominal pain and worsening generalized weakness x 3 days with associated poor p.o. intake. CTAP with evidence of pancolitis, (+) C. diff gene and toxin. GI was consulted for evaluatoin of Choledocholithiasis. (1) C.difficile - Patient switched from Vancomycin PO x 3 days to Dificid yesterday d/t persistent diarrhea. - CT revealed signs of pancolitis. - Today she reports persistence of abdominal discomfort and diarrhea going 7x/so far. - WBC has dropped from 18k to 12k which is non-specific for hopeful. - No fevers, chills, N/V melena or hematochezia. (2) Choledocholithiasis- - CT abd/pelvis revealed "16 x 16 mm sized hypodense lesion is noted in segment IV of liver. The gallbladder distended and shows a calculus of size 22 mm with internal hyperdense sludge without cholecystitis." - LFTs - have been normal . Toda T-Bili 0.3, AST 14, ALT 9, Alk Phos 73. - She denies any vomiting, melena or hematochezia. Review of Systems Review of Systems: See HPI Physical Exam Physical Exam: Constitutional: NAD. Alert. Answering questions appropriately. Respiratory: Breathing is even, non-labored. Lungs dunaway are clear to auscultation anteriorly. Cardiovascular: Irregular rhythm. Rate controlled. No murmurs, rubs or gallops appreciated. Gastrointestinal (Abdomen): Normoactive bowel sounds x4, soft, non-distended, non-tender. Musculoskeletal: Lying in bed comfortably. No peripheral edema. Results & Data Results & Data Vital Signs (Past 12 Hours) Vital Signs Temp Pulse Pulse Resp BP Pulse Ox Pulse Ox 05/16/25 11:15 97.3 F L 76 18 112/72 99 05/16/25 10:44 85 05/16/25 08:30 05/16/25 07:42 97.5 F L 71 18 99/66 L 95 05/16/25 04:20 98 05/16/25 03:25 98.1 F 92 H 20 96/63 L 97 O2 Del Method O2 Del Method O2 Flow Rate 05/16/25 11:15 Room Air 05/16/25 10:44 05/16/25 08:30 Room Air 05/16/25 07:42 Room Air 05/16/25 04:20 Nasal Cannula 2 05/16/25 03:25 Room Air PG Care Time/CCT Total # of Minutes Spent Total Time Spent with Patient: Total time spent is greater than 50% in coordination of care (as documented) at patient's floor/unit and/or counseling patient: Coding Level of Care Code 43265 SUB INP/OBS CARE 2/35MIN Diagnoses C. difficile colitis A04.72 Choledocholithiasis K80.50
[2025-05-16] MEDS: ADVANCED PROBIOTIC 625 MG CAPSULE PO SCH (17:00)
--- NOTE | 2025-05-16 22:50 | Magnetic Resonance Report ---
Exam(s): MRI MRCP EXAM: MR Abdomen Without Intravenous Contrast, MRCP Protocol CLINICAL HISTORY: F/U Choledocholithiasis. c diff. r/o choledocholithiasis. TECHNIQUE: Multiplanar magnetic resonance images of the abdomen without intravenous contrast using MRCP protocol. COMPARISON: No relevant prior studies available. FINDINGS: Bile ducts: Minimal intrahepatic biliary ductal dilatation. Dilated common hepatic and common bile duct. Filling defect just proximal to the ampulla 7.5 x 3 mm suspicious for intraductal calculus (coronal series 4 image 78). Gallbladder: Partially contracted with multiple filling defects/gallstones, largest adjacent to the gallbladder neck 1.2 x 1.8 cm. Slightly prominent cystic duct. No gallbladder wall thickening. Minimal peripancreatic fluid. Liver: Normal size. Redemonstrated 1.7 x 1.7 cm probable cysts in the left lobe of the liver. Pancreas: Atrophic pancreas. No ductal dilation. No evidence for pancreatitis. Spleen: Unremarkable. No splenomegaly. Adrenals: Unremarkable. No mass. Kidneys and ureters: Unremarkable. No hydronephrosis. Stomach and bowel: Unremarkable. No obstruction. Peritoneal space: Mild diffuse ascites in the abdomen extending to the bilateral pericolic gutters. Lung bases: Small [id number]-[id number]-trdh-left posterior layering dependent pleural effusions. Soft tissues: Asymmetric right lateral flank subcutaneous edema and fluid. IMPRESSION: Cholelithiasis. Biliary ductal dilatation with distal choledocholithiasis as described above. No pancreatic ductal dilatation. Increased mild ascites and small hrslk-tlqodxm-bxjz-left pleural effusions. Increased right lateral flank subcutaneous edema/fluid. Otherwise no change. Electronically signed by: Anselmo Coleman M.D. 05/16/25 22:50 PM
[2025-05-17 07:43] LABS: Hematocrit (blood only) 32.6 % (37.0-47.0); Hemoglobin 10.7 g/dL (12.0-16.0); Mean Corpuscular Hemoglobin 29.2 pg (25.0-34.0); Mean Corpuscular Volume 88.8 fL (80.0-100.0); Platelet Count 176 K/uL (130-400); RDW Standard Deviation 46.5 fL (36.4-46.3); Red Blood Count 3.67 M/uL (4.20-5.40); White Blood Count 8.40 K/ul (4.8-10.8)
[2025-05-17 08:13] LABS: Albumin Level 2.5 gm/dl (3.4-5.0); Anion Gap 5.0 (3-11); Bilirubin,Total 0.2 mg/dl (0.2-1.0); Calcium 7.8 mg/dl (8.6-10.3); Carbon Dioxide 17.0 mmol/L (21-32); Chloride 110.0 mmol/L (98-107); Magnesium 1.9 mg/dl (1.7-2.4); Potassium 3.6 mmol/L (3.5-5.1); Sodium 132.0 mmol/L (136-145)
[2025-05-17 08:19] LABS: Alanine Aminotransferase 11.0 U/L (7-52); Albumin Globulin Ratio 1.3 (0.9-2); Alkaline Phosphatase 65.0 U/L (34-104); Blood Urea Nitrogen 20.0 mg/dl (6-23); Creatinine Clr Calc Pharmacy 42.9 ml/min; Globulin 2.0 gm/dl (2.5-4.0); Glucose 82.0 mg/dl (70-99(Fasting)); Total Protein 4.5 gm/dl (6.0-8.3)
--- NOTE | 2025-05-17 10:51 | Gastroenterology Progress Note ---
Date of Service May 17, 2025 Assessment & Plan (1) Choledocholithiasis: (2) C. difficile colitis: Plan - continue with dificid for c diff. Would expect this to start to improve soon. - will continue to trend LFTs. - will make NPO this evening after midnight. - check INR. - Further recommendations to come with Supervising GI provider on medical rounds. Please see co-signature comments. Admission and Anticipated Discharge Date Admission Date: May 13, 2025 Supervising Physician Co-Signing Physician Notes MRCP shows common duct stone. Patient continues with diarrhea. Examined at the bedside. Abdomen is benign. White count seen. Reviewed findings with the patient. Discussed the risks of common duct stone which include infection jaundice and gallstone pancreatitis. ERCP intervention risks including bleeding perforation and pancreatitis also discussed. Choledocholithiasis is a very high risk of complications. This may occur next week next month or next year. Reviewed this with the patient. He is agreeable to proceed with ERCP. Will do this tomorrow. Will need her Lovenox held. Subjective Patient is an 89 year old female with a history of C.diff pancolitis for evaluation of incidental finding of 22mm stone on CT scan suggestive of choledoc holithiasis. she underwent an MRCP last evening (see below) suggestive of a stone. biggest complaint is ongoing diarrhea. she does feel an uptick in frequency. She had started dificid 2 days ago. no nausea, vomiting, abdominal pain, acid reflux, blood in the stools, or melena. 05/17/25 wbc 8.4, hgb 10.7, hct 32.6, plts 176, Na 132, K 3.6, BUN 20, Cr 0.98, t bili 0.2, AST 20, ALT 11, ALK 65. 05/16/25 MRCP - Cholelithiasis. Biliary ductal dilatation with distal choledocholithiasis. No pancreatic ductal dilatation. Increased mild ascites and small fsozl-bexaqft-oqyi-left pleural effusions. Increased right lateral flank subcutaneous edema/fluid. Otherwise no change. Review of Systems Review of Systems: All systems reviewed & are unremarkable except as noted in HPI & below Physical Exam Constitutional: WD/WN, vitals as above Respiratory: normal respiratory effort, lungs clear to auscultation Cardiovascular: Rate/Rhythm: regular rate and regular rhythm Gastrointestinal (Abdomen): normal bowel sounds, soft, nontender, no hepatosplenomegaly Psychiatric: Orientation: alert and oriented x 3 Results & Data Results & Data Vital Signs (Past 12 Hours) Vital Signs Temp Pulse Pulse Resp BP Pulse Ox O2 Del Method 05/17/25 10:23 Room Air 05/17/25 07:22 97.5 F L 81 20 98/62 L 98 Room Air 05/17/25 05:37 83 05/17/25 02:43 97.3 F L 91 H 18 100/67 100 Room Air Coding Level of Care Code 69844 SUB INP/OBS CARE 2MIN Diagnoses Choledocholithiasis K80.50 C. difficile colitis A04.72
[2025-05-17] MEDS: ENOXAPARIN 80 MG/0.8 ML SYR SQ SCH (11:40)
[2025-05-17] MEDS ORDERED: POTASSIUM PHOS 3 MMOL/1 ML INFUSION IV STA (11:59)
--- NOTE | 2025-05-17 11:59 | Hospitalist Progress Note ---
Date of Service May 17, 2025 Assessment & Plan (1) Abdominal pain: (2) C. difficile colitis: (3) Choledocholithiasis: (4) CLAY (acute kidney injury): (5) Hyponatremia: Plan Patient is an 89y/o F with PMHx significant for A-fib anticoagulated on Eliquis, hypertension, hyperlipidemia, hypothyroidism and chronic traumatic RLE wound who presented to the ED on 05/13/2025 with c/o watery diarrhea, abdominal pain and worsening generalized weakness x 3 days with associated poor p.o. intake. CTAP with evidence of pancolitis, (+) C. diff gene and toxin. Patient with complex health course since January 2025. Recent confinement at [facility] in January 2025 for possible PNA, UTI, traumatic rhabdomyolysis/chronic RLE wound. Was subsequently DC'd to [facility] following that hospitalization. 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 C. difficile pancolitis POA In setting of recent admissions, had been on ABX for her RLE wound. Initially started on oral vanco;however switched to dificid on 05/15 due to increased wbc and not improving clinically. Pt feels abd pain improving, but continues with liquid stool Discussed with GI who states it will take a few days to get rid of toxin in colon WBC has now normalized, continue with dificid, precautions CLAY Tachycardia and hypotension 2/2 above ISO continuous GI losses resolved, peaked at 1.73 on 05/13 bun/cr normal today will stop IVF for now and monitor volume status to prevent hypervolemia Hypokalemia 2/2 above, repleted via IV. Continue to monitor and replete PRN. Recent aspiration event Pt with aspiration episode on 05/05 Initial work up included RVP and CXR were ordered. RVP negative. repeat CXR 05/17 also negative Aspiration ruled out, no clinical signs or symptoms Choledocholithiasis CTAP on admission with dilated CBD with hyperdense calculus measuring 4 mm at the distal end suggestive of choledocholithiasis. LFTs, including T. bili, remain grossly unremarkable. GI consulted for further evaluation of this finding >> feels this is an incidental finding. MRCP: IMPRESSION: Cholelithiasis. Biliary ductal dilatation with distal choledocholithiasis as described above. No pancreatic ductal dilatation. In creased mild ascites and small tpgcw-lkjrycq-ubme-left pleural effusions. Increased right lateral flank subcutaneous edema/fluid. Otherwise no change. GI has made pt NPO for tomorrow, awaiting further GI assesment to determine plan Hypotonic, hypovolemic hyponatremia 2/2 volume losses, continue holding home diuretics for now continue IVF, na 132 today Urinary retention noted during admission, spaulding placed will need to do voiding trial once more medically stable and liquid stool has improved Pt with significant deconditioning Chronic CHF w/o decompensation Recently diagnosed at [facility] (records requested and pending). Suspect chronic hfpef; however no echo available Was started on diuretics last week, currently on hold as per above. 3+ RLE pitting edema appreciated on exam this morning and had grossly unremarkable RLE venous reflux duplex last month, no DVT. doubt DVT given chronic anticoagulation therapy, suspect RLE edema 2/2 chronic wound Atrial fibrillation chronically anticoagulated on Eliquis Hold diltiazem for now given hypotension, continue amiodarone for the time being. on therapeutic lovenox and eliquis on hold for possible procedure HR much improved, BP still on soft side so will continue to hold diltiazem HTN improving, but will continue to hold diuretics and diltiazem as pt continues to have diarrhea Pressure ulcer of R anterior leg, stage 4, POA Pressure ulcer of R ischium, stage 3, POA Follows with [facility] wound care, WOCN consulted. Hypothyroidism TSH elevated at 23.958, up from 5.207 in February 2025. Increased levothyroxine to 50mcg dailyBB >> f/u with repeat TFTs in 6-8 weeks on OP basis. DVT Prophylaxis: Eliquis currently on hold in favor of SQ Lovenox Code Status: DNR/DNI PCP: Joaquina Haji MD Disposition: PT/OT, pt going to need rehab likely, not yet medically stable for discharge. Patient lives with her great nephew. Will call grandson today to provide update as daughter is on a bus trip today and requested to not be called. Requesting daily updates. Ms. Daylin Patel (daughter), contact #[phone]. Mr. Bob Patel (grandson), contact #[phone]. Patient seen in collaboration with Dr. Mendez. Please see addendum. I spent a total of 45 minutes coordinating, documenting, and providing care for this patient excluding time spent in the performance of separately billed services or time spent by another provider/QHP. This included personally reviewing all current laboratories and imaging studies, medical reconciliation, outpatient chart review and discussion with specialists. Admission and Anticipated Discharge Date Admission Date: May 13, 2025 Supervising Physician Co-Signing Physician Notes Pt seen and examined by me, care coordinated w/ B. JOSE A Booth, pls refer to her note for further detail. Pt is currently lying in bed in NAD, she is awake, alert. Says she continues to have frequent diarrhea. Per RN, she had 4 BMs today. She was switched to Dificid from PO Vanco. WBC is decreased/normalized. Continues to have some abd. discomfort. denies fever, chills, chest pain or shortness of breath. GI is following, MRCP was obtained and c/w stone in bile duct. ERCP discussed and planned for tmrw. Records [facility] from [facility], pending. MD Vanessa Subjective Pt seen and examined in room 282-2. Follow up Cdiff colitis. Pt feels her abdominal pain is mildly improved. She continues to have liquid frequent diarrhea. Denies f/c/s, chest pain, sob, vomiting. She does have nausea. She is eating/drinking adequately. She feels her swelling is, "about the same." Review of Systems Review of Systems: All systems reviewed & are unremarkable except as noted in HPI & below Physical Exam Physical Exam: Gen: WD/WN, Elderly, F, nontoxic appearing, lying in bed, NAD, A&O x3 HEENT: Normocephalic, atraumatic, conjunctivae moist, sclerae anicteric, mucous membranes moist. Lung: Clear to Auscultation bilaterally, no wheezes/rales/rhonchi decreased BS at bases due to poor insp effort Heart: Irregular rhythm, regular rate, no murmurs, rubs, or gallops Abdomen: Soft, mild tenderness to palpation diffusely, lower abd > upper abd, ND +BS x 4 Extremities: RLE + 3 edema, dressing covering RLE wound CDI Skin: Warm, no rash, negative turgor.. Results & Data Results & Data Vital Signs (Past 12 Hours) Vital Signs Temp Pulse Pulse Resp BP Pulse Ox O2 Del Method 05/17/25 11:12 36.5 C 84 18 105/70 95 Room Air 05/17/25 10:23 Room Air 05/17/25 07:22 36.4 C L 81 20 98/62 L 98 Room Air 05/17/25 05:37 83 05/17/25 02:43 36.3 C L 91 H 18 100/67 100 Room Air Laboratory Results I have independently reviewed and interpreted patient's cbc, cmp, mag, phos 05/17/25 Range/Units 07:04 WBC 8.40 (4.8-10.8) K/ul RBC 3.67 L (4.20-5.40) M/uL Hgb 10.7 L (12.0-16.0) g/dL Hct 32.6 L (37.0-47.0) % MCV 88.8 (80.0-100.0) fL MCH 29.2 (25.0-34.0) pg MCHC 32.8 (32.0-36.0) g/dL RDW Std Deviation 46.5 H (36.4-46.3) fL RDW Coeff of Olga 14.3 (11.5-14.5) % Plt Count 176 (130-400) K/uL MPV 9.9 (9.4-12.4) fL Sodium 132 L (136-145) mmol/L Potassium 3.6 (3.5-5.1) mmol/L Chloride 110 H (98-107) mmol/L Carbon Dioxide 17 L (21-32) mmol/L Anion Gap 5 (3-11) BUN 20 (6-23) mg/dl Creatinine 0.98 (0.6-1.2) mg/dl Est Cr Clr Drug Dosing 42.9 ml/min eGFR 55.86 BUN/Creatinine Ratio 20.4 H (10-20) Glucose 82 (70-99(Fasting)) mg/dl Calcium 7.8 L (8.6-10.3) mg/dl Phosphorus 2.4 L (2.5-4.9) mg/dl Magnesium 1.9 (1.7-2.4) mg/dl Total Bilirubin 0.2 (0.2-1.0) mg/dl AST 20 (13-39) U/L ALT 11 (7-52) U/L Alkaline Phosphatase 65 (34-104) U/L Total Protein 4.5 L (6.0-8.3) gm/dl Albumin 2.5 L (3.4-5.0) gm/dl Globulin 2.0 L (2.5-4.0) gm/dl Albumin/Globulin Ratio 1.3 (0.9-2) Diagnostic Findings MRCP : IMPRESSION: Cholelithiasis. Biliary ductal dilatation with distal choledocholithiasis as described above. No pancreatic ductal dilatation. Increased mild ascites and small jotiw-wqqztjp-fpvs-left pleural effusions. Increased right lateral flank subcutaneous edema/fluid. Otherwise no change. Medications Administered Current Inpatient Medications Acetaminophen (Acetaminophen 325 Mg Tab) 650 mg PO QID PRN PRN Reason: pain/fever Stop: 06/12/25 04:06 Last Admin: 05/13/25 22:22 Dose: 650 mg Amiodarone HCl (Amiodarone 200 Mg Tab) 400 mg PO BID [facility]; Taper Stop: 07/08/25 08:59 Last Admin: 05/17/25 09:46 Dose: 400 mg Diltiazem HCl (Diltiazem Hcl 180 Mg Capcr) 180 mg PO DAILY [facility] Stop: 06/12/25 08:59 Last Admin: 05/15/25 09:42 Dose: Not Given Enoxaparin Sodium (Enoxaparin 80 Mg/0.8 Ml Syr) 80 mg SQ BID [facility] Stop: 06/16/25 10:29 Last Admin: 05/17/25 11:40 Dose: 80 mg Fidaxomicin (Fidaxomicin 200 Mg Tab) 200 mg PO BID [facility] Stop: 05/25/25 11:44 Last Admin: 05/17/25 07:53 Dose: 200 mg Hydromorphone HCl (Hydromorphone Inj 0.5 Mg/0.5 Ml Syr) 0.25 mg IV Q4H PRN PRN Reason: Pain Stop: 05/27/25 22:45 Promethazine HCl (Phenergan) 6.25 mg in 50.25 mls @ 201 mls/hr IV Q6H PRN PRN Reason: Nausea And Vomiting Stop: 06/12/25 04:06 Last Infusion: 05/13/25 08:56 Dose: Infused Acetaminophen (Ofirmev) 1,000 mg in 100 mls @ 400 mls/hr IV Q8H PRN PRN Reason: pain/fever Stop: 05/17/25 19:49 Lactobacillus Acidophilus (Advanced Probiotic 625 Mg Capsule) 1,250 mg PO DAILY [facility] Stop: 06/15/25 15:14 Last Admin: 05/17/25 07:55 Dose: 1,250 mg Levothyroxine Sodium (Levothyroxine Sodium 75 Mcg Tablet) 75 mcg PO DAILYBB [facility] Stop: 06/13/25 06:29 Last Admin: 05/17/25 05:53 Dose: 75 mcg Multivitamins/Minerals (Cerovite Adv Formula Tab) 1 tab PO DAILY [facility] Stop: 06/12/25 08:59 Last Admin: 05/17/25 07:54 Dose: 1 tab Oxycodone HCl (Oxycodone Hcl Ir 5 Mg Tab (Immediate Release)) 5 mg PO Q4H PRN PRN Reason: Pain Stop: 05/27/25 04:06
[2025-05-17] MEDS: POTASSIUM PHOSPHATE 9 MMOL in SODIUM CHLORIDE 0.9% 250 ML IV ONE (12:58)
[2025-05-18 06:22] LABS: Hematocrit (blood only) 35.2 % (37.0-47.0); Hemoglobin 11.5 g/dL (12.0-16.0); Immature Granulocytes # (auto) 0.06 K/uL (0.01-0.20); Immature Granulocytes % (auto) 0.7 %; Mean Corpuscular Hemoglobin 29.1 pg (25.0-34.0); Mean Corpuscular Volume 89.1 fL (80.0-100.0); Platelet Count 213 K/uL (130-400); RDW Standard Deviation 46.5 fL (36.4-46.3); Red Blood Count 3.95 M/uL (4.20-5.40); White Blood Count 8.42 K/ul (4.8-10.8)
[2025-05-18 06:40] LABS: Alanine Aminotransferase 23.0 U/L (7-52); Albumin Level 2.7 gm/dl (3.4-5.0); Alkaline Phosphatase 73.0 U/L (34-104); Anion Gap 6.0 (3-11); Bilirubin,Total 0.2 mg/dl (0.2-1.0); Blood Urea Nitrogen 19.0 mg/dl (6-23); Calcium 8.3 mg/dl (8.6-10.3); Carbon Dioxide 17.0 mmol/L (21-32); Chloride 113.0 mmol/L (98-107); Creatinine Clr Calc Pharmacy 46.2 ml/min; Glucose 111.0 mg/dl (70-99(Fasting)); Magnesium 1.8 mg/dl (1.7-2.4); Potassium 3.8 mmol/L (3.5-5.1); Sodium 136.0 mmol/L (136-145); Total Protein 4.9 gm/dl (6.0-8.3)
[2025-05-18 06:56] LABS: INR 1.0 (0.9-1.1); Prothrombin Time 10.4 Seconds (9.0-12.0)
--- NOTE | 2025-05-18 08:19 | Hospitalist Progress Note ---
Date of Service May 18, 2025 Assessment & Plan (1) Abdominal pain: (2) C. difficile colitis: (3) Choledocholithiasis: (4) CLAY (acute kidney injury): (5) Hyponatremia: Plan Patient is an 89y/o F with PMHx significant for A-fib anticoagulated on Eliquis, hypertension, hyperlipidemia, hypothyroidism and chronic traumatic RLE wound who presented to the ED on 05/13/2025 with c/o watery diarrhea, abdominal pain and worsening generalized weakness x 3 days with associated poor p.o. intake. CTAP with evidence of pancolitis, (+) C. diff gene and toxin. Patient with complex health course since January 2025. Recent confinement at [facility] in January 2025 for possible PNA, UTI, traumatic rhabdomyolysis/chronic RLE wound. Was subsequently DC'd to [facility] following that hospitalization. Admitted to [facility] 04/15/25-04/20/25 for newly diagnosed acute diastolic HF, A-fib with RVR s/p cardioversion x 1 on 04/17/25, possible PNA and chronic RLE wound. TTE performed 04/18/25 with preserved LVEF = 60%, moderately dilated RA, moderately dilated LA and mild TR. 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 C. difficile pancolitis POA In setting of recent admissions, had been on ABX for her RLE wound. Initially started on oral vanco; however, switched to Dificid on 05/15 due to uptrending leukocytosis and minimal clinical improvement. Abd pain improved. Continues with liquid stool but becoming less frequent per d/w RN. WBC normalized. Continue contact precautions, Dificid. CLAY -- resolved Tachycardia and hypotension In setting of poor p.o. intake, GI losses. CLAY resolved s/p IVF (Cr peaked at 1.73 on 05/13). Hypotension improving s/p IVF >> continuing to hold diltiazem for now. Tachycardia persists however suspect will take some time to see improvement until her GI losses resolve, p.o. intake continues to improve. Recent aspiration event on 05/15 Initial workup included RVP and CXR. RVP negative. 1st CXR showed a possible RLL opacity however repeat CXRs were unremarkable. Feel initial RLL opacity represented atelectasis rather than infectious etiology given lack of any major cardiopulmonary complaints >> ISP ordered. US MARKETING DIRECTOR also evaluated the pt and did NOT witness any evidence of [place] aspiration. Aspiration ruled-out. Choledocholithiasis CTAP on admission with dilated CBD with hyperdense calculus measuring 4mm at the distal end suggestive of choledocholithiasis. LFTs, including T. bili, remain grossly unremarkable. GI consulted for further evaluation of this finding >> feels this is an incidental finding. MRCP completed 05/26: Biliary ductal dilatation with distal choledocholithiasis. No pancreatic ductal dilatation. Plan for ERCP today per d/w GI. Hypotonic, hypovolemic hyponatremia -- resolved 2/2 volume losses (dehydration/diuretic use), acute infection and subtherapeutic tx of hypothyroidism. Na improved s/p IVF. Continue to hold home diuretics for now. Urinary retention Noted on 05/15 >> Davis cath was placed. Likely in light of significant physical deconditioning. Will need to do voiding trial once pt more medically stable and liquid stool has improved. Chronic HFpEF Newly diagnosed diastolic HF during hospitalization at [facility] last month as per above. -TTE, 04/18/25: preserved LVEF = 60%, moderately dilated RA, moderately dilated LA and mild TR. -Started on po Lasix 40mg BID, Aldactone 25mg daily by cardiology at time of DC. 3+ RLE pitting edema appreciated on exam this morning >> unchanged from days prior. No LLE edema. Doubt DVT given chronic anticoagulation therapy, suspect RLE edema 2/2 chronic RLE wound. Also had grossly unremarkable RLE venous reflux duplex last month, no DVT. MRCP did incidentally note mild ascites and small R>L pleural effusions. -Pt w/o any significant cardiopulmonary complaints. 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 Atrial fibrillation chronically anticoagulated on Eliquis Recent DC cardioversion during hospitalization at [facility] last month 2/2 A-fib with RVR. Started on diltiazem 180mg daily. Also started on amiodarone. Holding diltiazem for now given persistently soft BPs as per above. Eliquis on hold for above procedure, was on therapeutic Lovenox >> will need to resume Eliquis RONDA s/p procedure as cleared by GI. Amiodarone on tapering dose >> 400mg BID x 2wk (05/13-05/24), then 200mg BID x 2wk (05/25-06/07), then 200mg daily (beginning 06/08). HTN Hypotension slowly improving, continuing to hold diuretics and diltiazem as per above as pt continues to have diarrhea. Pressure ulcer of R anterior leg, stage 4, POA >> Sustained 2/2 crush injury after a fall in January 2025. Pressure ulcer of R ischium, stage 3, POA Follows with [facility] wound care, WOCN consulted. Hypothyroidism TSH elevated at 23.958, up from 5.207 in February 2025. Increased levothyroxine to 50mcg dailyBB >> f/u with repeat TFTs in 6-8 weeks on OP basis. DVT Prophylaxis: Eliquis currently on hold in anticipation for above procedure Code Status: DNR/DNI PCP: Joaquina Haji MD Disposition: PT/OT recommending rehab,appreciate CM assistance. Not yet medically stable for DC. Pt lives with her great nephew. Pt's family requesting daily updates. Will contact her daughter later this afternoon. Ms. Daylin Patel (daughter), contact #[phone]. Mr. Bob Patel (grandson), contact #[phone]. Patient seen in collaboration with Dr. Mendez. Please see addendum. I spent a total of 50 minutes coordinating, documenting, and providing care for this patient excluding time spent in the performance of separately billed services or time spent by another provider/QHP. This included personally reviewing all current laboratories and imaging studies, medical reconciliation, outpatient chart review and discussion with specialists. Admission and Anticipated Discharge Date Admission Date: May 13, 2025 Supervising Physician Co-Signing Physician Notes Pt seen and examined by me, care coordinated w/ Flynn Murray PA-C, pls refer to her note for further detail. Pt is currently sitting up in chair in NAD, she is awake, alert, answers appropriately. Says she continues to have frequent diarrhea, had several episodes overnight and 2 this AM. She was switched previously to Dificid from PO Vanco. WBC is decreased/normalized, pt is afebrile. Continues to have some abd. discomfort. denies fever, chills, chest pain or shortness of breath. +right LE .edema GI is following and discussed with this AM, MRCP was obtained and c/w stone in bile duct. ERCP planned for today. Records requested from [facility], and some obtained this AM. Per brief review - pt underwent cardioversion and was started on amiodarone, will further review records in detail. MD Vanessa Subjective Patient seen and examined in room N282-2. Sitting up in bedside chair. Diarrhea less frequent per RN. Abdominal pain resolved. Davis catheter intact and draining appropriately. NPO in anticipation for ERCP today. Review of Systems Review of Systems: At least ten systems reviewed and negative, except as noted in the subjective section. Physical Exam Physical Exam: General: Elderly F. Sitting up in bed. A&Ox3. Appears tired but conversing appropriately. HEENT: Normocephalic, atraumatic. Somewhat dry mucous membranes of the oropharynx. Respiratory: Normal respiratory effort, decreased breath sounds bilaterally 2/2 poor inspiratory effort. Cardiovascular: Mildly tachycardic rate (HR 102bpm), irregularly irregular rhythm. 3+ RLE edema, no LLE edema. Abdomen/GI: Active bowel sounds, mild tenderness to deep palpation across lower abdomen, soft/nondistended. Extremities/Musculoskeletal: + chronic RLE wound covered by dressing which is C/D/I (wound not directly visualized), able to actively move all extremities. Neurologic: No overt focal deficits, CN's II-XI not formally tested but appear grossly intact bilaterally. Results & Data Results & Data Vital Signs (Past 12 Hours) Vital Signs Temp Pulse Pulse Resp BP Pulse Ox O2 Del Method 05/18/25 07:16 92 H 05/18/25 02:22 36.4 C L 100 H 16 113/73 99 Room Air 05/17/25 22:23 36.4 C L 93 H 18 110/65 96 Room Air 05/17/25 21:52 85 05/17/25 20:20 Room Air 05/17/25 20:14 36.5 C 94 H 16 110/65 97 Room Air Laboratory Results 05/18/25 Range/Units 05:39 WBC 8.42 (4.8-10.8) K/ul RBC 3.95 L (4.20-5.40) M/uL Hgb 11.5 L (12.0-16.0) g/dL Hct 35.2 L (37.0-47.0) % MCV 89.1 (80.0-100.0) fL MCH 29.1 (25.0-34.0) pg MCHC 32.7 (32.0-36.0) g/dL RDW Std Deviation 46.5 H (36.4-46.3) fL RDW Coeff of Olga 14.3 (11.5-14.5) % Plt Count 213 (130-400) K/uL MPV 9.8 (9.4-12.4) fL Immature Gran % (Auto) 0.7 % Neut % (Auto) 82.0 % Lymph % (Auto) 8.8 % Real % (Auto) 6.1 % Eos % (Auto) 2.0 % Baso % (Auto) 0.4 % Neut # (Auto) 6.91 H (1.40-6.50) K/uL Lymph # (Auto) 0.74 L (1.20-3.40) K/uL Real # (Auto) 0.51 (0.11-0.59) K/uL Eos # (Auto) 0.17 (0.00-0.50) K/uL Baso # (Auto) 0.03 (0.00-0.20) K/uL Immature Gran # (Auto) 0.06 (0.01-0.20) K/uL PT 10.4 (9.0-12.0) Seconds INR 1.0 (0.9-1.1) Sodium 136 (136-145) mmol/L Potassium 3.8 (3.5-5.1) mmol/L Chloride 113 H (98-107) mmol/L Carbon Dioxide 17 L (21-32) mmol/L Anion Gap 6 (3-11) BUN 19 (6-23) mg/dl Creatinine 0.91 (0.6-1.2) mg/dl Est Cr Clr Drug Dosing 46.2 ml/min eGFR 61.06 BUN/Creatinine Ratio 20.9 H (10-20) Glucose 111 H (70-99(Fasting)) mg/dl Calcium 8.3 L (8.6-10.3) mg/dl Phosphorus 2.8 (2.5-4.9) mg/dl Magnesium 1.8 (1.7-2.4) mg/dl Total Bilirubin 0.2 (0.2-1.0) mg/dl Direct Bilirubin 0.0 (0-0.2) mg/dl AST 33 (13-39) U/L ALT 23 (7-52) U/L Alkaline Phosphatase 73 (34-104) U/L Total Protein 4.9 L (6.0-8.3) gm/dl Albumin 2.7 L (3.4-5.0) gm/dl Medications Administered Current Inpatient Medications Acetaminophen (Acetaminophen 325 Mg Tab) 650 mg PO QID PRN PRN Reason: pain/fever Stop: 06/12/25 04:06 Last Admin: 05/13/25 22:22 Dose: 650 mg Amiodarone HCl (Amiodarone 200 Mg Tab) 400 mg PO BID [facility]; Taper Stop: 07/08/25 08:59 Last Admin: 05/18/25 08:48 Dose: 400 mg Diltiazem HCl (Diltiazem Hcl 180 Mg Capcr) 180 mg PO DAILY [facility] Stop: 06/12/25 08:59 Last Admin: 05/15/25 09:42 Dose: Not Given Enoxaparin Sodium (Enoxaparin 80 Mg/0.8 Ml Syr) 80 mg SQ BID [facility] Stop: 06/16/25 10:29 Last Admin: 05/17/25 11:40 Dose: 80 mg Fidaxomicin (Fidaxomicin 200 Mg Tab) 200 mg PO BID [facility] Stop: 05/25/25 11:44 Last Admin: 05/18/25 08:49 Dose: 200 mg Hydromorphone HCl (Hydromorphone Inj 0.5 Mg/0.5 Ml Syr) 0.25 mg IV Q4H PRN PRN Reason: Pain Stop: 05/27/25 22:45 Promethazine HCl (Phenergan) 6.25 mg in 50.25 mls @ 201 mls/hr IV Q6H PRN PRN Reason: Nausea And Vomiting Stop: 06/12/25 04:06 Last Infusion: 05/13/25 08:56 Dose: Infused Indomethacin (Indomethacin 50 Mg Supp) 100 mg [place] ONCE ONE Stop: 05/18/25 13:01 Lactobacillus Acidophilus (Advanced Probiotic 625 Mg Capsule) 1,250 mg PO DAILY [facility] Stop: 06/15/25 15:14 Last Admin: 05/18/25 08:49 Dose: 1,250 mg Levothyroxine Sodium (Levothyroxine Sodium 75 Mcg Tablet) 75 mcg PO DAILYBB [facility] Stop: 06/13/25 06:29 Last Admin: 05/18/25 05:58 Dose: Not Given Multivitamins/Minerals (Cerovite Adv Formula Tab) 1 tab PO DAILY [facility] Stop: 06/12/25 08:59 Last Admin: 05/18/25 08:42 Dose: 1 tab Oxycodone HCl (Oxycodone Hcl Ir 5 Mg Tab (Immediate Release)) 5 mg PO Q4H PRN PRN Reason: Pain Stop: 05/27/25 04:06
[2025-05-18] MEDS: MAGNESIUM SULFATE / D5W 1 GM/100 ML BAG IV ONE (08:50)
--- NOTE | 2025-05-18 10:16 | History & Physical Bridge Note ---
Date of Service May 18, 2025 History & Physical Bridge Note I have examined the patient, reviewed the History & Physical and in the interval since the performance of the History & Physical I have noted the following changes of clinical significance: no changes noted. Patient has completed NPO since midnight. She's had a few BMs over night, two so far this morning. These continue to be watery. Remains on Dificid and IVF for supportive care. INR 1.0. LFTs normal. H/H stable. Plan to proceed with ERCP t yesika. Supervising Physician Co-Signing Physician Notes Patient feels well she feels her diarrhea is slowing down. For ERCP today and stone extraction. Reviewed test at the bedside with patient and her daughter. Risks including bleeding bowel perforation pancreatitis addressed informed consent obtained
--- NOTE | 2025-05-18 16:17 | Anesthesiology Consultation ---
Date of Service May 18, 2025 Assessment & Plan Chart Review Chart Review: Acceptable Risk for Surgery and Patient NOT seen in Pre Admission Testing History Surgery Operation Date: 05/18/25 07:00 Proposed Procedures p Endoscopic Retrograde Cholangiopancreato - Haseeb Pete MD Height/Weight Height: 5 ft 4 in Weight: 85.8 kg Allergies Allergy/AdvReac Type Severity Reaction Status Date / Time Penicillins Allergy Severe THROAT Verified 05/13/25 01:33 SWELLS/ITCHING HANDS & FEET Medications Home Medications Medication Instructions Recorded Confirmed Last Taken apixaban 2.5 mg tablet 2.5 mg PO BID 03/20/25 05/13/25 05/12/25 diltiazem HCl 180 mg 180 mg PO DAILY 03/21/25 05/13/25 05/12/25 tablet,extended release 24 hr (Cardizem LA) amiodarone 200 mg tablet 200 mg PO DIRECTED 05/13/25 05/13/25 05/12/25 dapagliflozin propanediol 10 mg 10 mg PO DAILY 05/13/25 05/13/25 05/12/25 tablet furosemide 40 mg tablet 40 mg PO QAM 05/13/25 05/13/25 05/12/25 levothyroxine 50 mcg tablet 50 mcg PO DAILYBB 05/13/25 05/13/25 05/12/25 magnesium oxide 800 mg PO DAILY 05/13/25 05/13/25 05/12/25 multivitamin,tx-minerals 1 tab PO DAILY 05/13/25 05/13/25 05/12/25 potassium chloride 10 mEq 10 meq PO BID 05/13/25 05/13/25 05/12/25 tablet,extended release spironolactone 25 mg tablet 25 mg PO DAILY 05/13/25 05/13/25 05/12/25 Active Medications Generic Name Dose Route Start Last Admin Trade Name Freq PRN Reason Stop Dose Admin Acetaminophen 650 mg 05/13/25 04:07 05/13/25 22:22 Acetaminophen 325 Mg Tab PO 06/12/25 04:06 650 mg QID PRN Administration pain/fever Amiodarone HCl 400 mg 05/13/25 09:00 05/18/25 08:48 Amiodarone 200 Mg Tab PO 07/08/25 08:59 400 mg BID NARENDRA Administration Taper Diltiazem HCl 180 mg 05/13/25 09:00 05/15/25 09:42 Diltiazem Hcl 180 Mg Capcr PO 06/12/25 08:59 Not Given DAILY NARENDRA Enoxaparin Sodium 80 mg 05/17/25 10:30 05/17/25 11:40 Enoxaparin 80 Mg/0.8 Ml Syr SQ 06/16/25 10:29 80 mg BID NARENDRA Administration Fidaxomicin 200 mg 05/15/25 11:45 05/18/25 08:49 Fidaxomicin 200 Mg Tab PO 05/25/25 11:44 200 mg BID NARENDRA Administration Promethazine HCl 6.25 mg in 50.25 mls @ 201 mls/hr 05/13/25 04:07 05/13/25 08:56 Phenergan IV 06/12/25 04:06 Infused Q6H PRN Infusion Nausea And Vomiting Lactobacillus Acidophilus 1,250 mg 05/16/25 15:15 05/18/25 08:49 Advanced Probiotic 625 Mg Capsule PO 06/15/25 15:14 1,250 mg DAILY NARENDRA Administration Levothyroxine Sodium 75 mcg 05/14/25 06:30 05/18/25 05:58 Levothyroxine Sodium 75 Mcg Tablet PO 06/13/25 06:29 Not Given DAILYBB NARENDRA Multivitamins/Minerals 1 tab 05/13/25 09:00 05/18/25 08:42 Cerovite Adv Formula Tab PO 06/12/25 08:59 1 tab DAILY NARENDRA Administration Social History Smoking Status: Never smoker Hx Alcohol Use: No Hx Substance Use: No substance use type: does not use Physical Exam Vital Signs Last Vital Signs Temp 36.2 C L 05/18/25 15:17 Pulse 97 H 05/18/25 15:25 Resp 16 05/18/25 15:17 BP 106/67 05/18/25 15:17 Pulse Ox 99 05/18/25 15:17 O2 Del Method Room Air 05/18/25 15:17 O2 Flow Rate 2 05/16/25 04:20 Testing Laboratory Results 05/18/25 05:39 05/18/25 05:39 PT 10.4 Seconds (9.0-12.0) 05/18/25 05:39 INR 1.0 (0.9-1.1) 05/18/25 05:39 APTT 33 Seconds (21-31) H 05/13/25 00:51 Urine Color Dark Yellow 05/13/25 22:40 Urine Appearance Clear (Clear) 05/13/25 22:40 Urine pH 5.0 (4.5-7.5) 05/13/25 22:40 Ur Specific [place] 1.019 (1.000-1.030) 05/13/25 22:40 Urine Protein 1+ (Negative) H 05/13/25 22:40 Urine Glucose (UA) Trace (Negative) H 05/13/25 22:40 Urine Ketones Negative (Negative) 05/13/25 22:40 Urine Nitrite Negative (Negative) 05/13/25 22:40 Ur Leukocyte Esterase Trace (Negative) H 05/13/25 22:40 Urine WBC (Auto) 0-5 /hpf (0-5) 05/13/25 22:40 Urine RBC (Auto) 0-2 /hpf (0-2) 05/13/25 22:40 U Hyaline Cast (Auto) 3-5 /lpf (0-2) H 05/13/25 22:40 U Epithel Cells (Auto) 3-5 /hpf (0-2) H 05/13/25 22:40 Urine Bacteria (Auto) None Seen (None Seen) 05/13/25 22:40 05/13/25 03:20 Aerobic Blood Culture - Final Blood No growth in Aerobic bottle after 5 days. Anaerobic Blood Culture - Final No growth in Anaerobic bottle after 5 days. 05/13/25 03:20 Aerobic Blood Culture - Final Blood No growth in Aerobic bottle after 5 days. Anaerobic Blood Culture - Final No growth in Anaerobic bottle after 5 days.
[2025-05-18] MEDS ORDERED: HYDROmorphone INJ 1 MG/ML SYRINGE IV PRN (16:30)
[2025-05-18] MEDS ORDERED: ATROPINE SULFATE 0.1 MG/ML 10ML SYR IV PRN (16:30)
[2025-05-18] MEDS ORDERED: PROMETHAZINE HCL 6.25 MG in SODIUM CHLORIDE 0.9% 50 ML IV PRN (16:30)
[2025-05-18] MEDS ORDERED: ONDANSETRON INJ 2 MG/ML 2 ML VIAL IV PRN (16:30)
[2025-05-18] MEDS ORDERED: ONDANSETRON INJ 2 MG/ML 2 ML VIAL ONE (18:23)
[2025-05-18] MEDS ORDERED: ROCURONIUM BROMIDE 10 MG/ML 5 ML VIAL IV ONE (18:23)
[2025-05-18] MEDS ORDERED: PROPOFOL IV EMULSION 10 MG/ML 20 ML VIAL IV ONE (18:23)
[2025-05-18] MEDS ORDERED: LIDOCAINE 2% 2 ML VIAL/AMP(20MG/ML) INFIL ONE (18:23)
[2025-05-18] MEDS ORDERED: PHENYLEPHRINE 100MCG/ML 5ML SYR ONE (18:38)
[2025-05-18] MEDS ORDERED: ALBUTEROL HFA 8 GM INHALER INH ONE (19:07)
[2025-05-18] MEDS ORDERED: SUGAMMADEX SODIUM 200 MG/2 ML VIAL IV ONE (19:14)
[2025-05-18] MEDS: INDOMETHACIN 50 MG SUPP PR ONE ×2 (19:22)
--- NOTE | 2025-05-18 19:26 | GI REPORT ---
[facility] Patient: ASHLIE PAGE : 1935 Sex at : Female Age: 89 Years Procedure: ERCP Date: 05/18/2025 Attending Physician: Haseeb Pete MD Referring MD: Referred Self; Lee Mendez Md Indications: - Bile duct stone(s) Medications: - General Anesthesia - Indomethacin 100 mg [place] Complications: - No immediate complications. Estimated Blood Loss: - Estimated blood loss was minimal. Procedure: - The ercp scope was introduced through the mouth and advanced to the duodenum and used to inject contrast into the bile duct. - The ERCP was accomplished without difficulty. - The patient tolerated the procedure well. Findings: - The carton wrapper film was normal. - Flexible video duodenoscope advanced to second part of the duodenum. There was a periampullary diverticulum present. The duct was draining clear secretions consistent with pancreatic juice. Initial cannulation was that of the pancreatic duct. Guidewire preferentially went into the pancreas duct. Therefore the guidewire was left in place catheter was withdrawn leaving the guidewire in the pancreatic duct. With a second guidewire were able to deeply cannulate the common bile duct. There was a filling defect present. This was consistent with known patient's stone. Bili sphincterotomy undertaken. The sphincter was disrupted further with a balloon dilation up to 10 mm. An 8.5 to 15 mm balloon that was inserted into the bile duct the duct was swept with retrieval of the visualized stone into the duodenum. Duct clear post. Draining post. No bleeding. Patient tolerated well. Scope withdrawn Impression: - Flexible video duodenoscope advanced to second part of the duodenum. There was a periampullary diverticulum present. The duct was draining clear secretions consistent with pancreatic juice. Initial cannulation was that of the pancreatic duct. Guidewire preferentially went into the pancreas duct. Therefore the guidewire was left in place catheter was withdrawn leaving the guidewire in the pancreatic duct. With a second guidewire were able to deeply cannulate the common bile duct. There was a filling defect present. This was consistent with known patient's stone. Bili sphincterotomy undertaken. The sphincter was disrupted further with a balloon dilation up to 10 mm. An 8.5 to 15 mm balloon that was inserted into the bile duct the duct was swept with retrieval of the visualized stone into the duodenum. Duct clear post. Draining post. No bleeding. Patient tolerated well. Scope withdrawn - Single, duct stone extracted - Clear liquids today, check LFTs lipase in AM. Advance diet in the absence of elevated lipase Recommendation: Procedure Code(s): - 16129, Endoscopic retrograde cholangiopancreatography (ERCP); diagnostic, including collection of specimen(s) by brushing or washing, when performed (separate procedure) Diagnosis Code(s): - K80.50, Calculus of bile duct without cholangitis or cholecystitis without obstruction CPT(R) - 2022 copyright [employer]. All Rights Reserved. The CPT codes, CCI edits and ICD codes generated are intended as suggestions and were generated based on input data. These codes are preliminary and upon assistant finance director review may be revised to meet current compliance and payer requirements. The provider is responsible for the final determination of appropriate codes, and modifiers. Haseeb Pete MD This document has been electronically signed. Note Initiated:05/18/2025 Note Completed:05/18/2025 7:25 PM [id number]
--- NOTE | 2025-05-18 20:22 | Anesthesiology Progress Note ---
Date of Service May 18, 2025 Anesthesia Post Procedure Vital Signs Vital Signs: Temp Pulse Pulse Pulse Resp BP BP 05/18/25 20:09 36.3 C L 91 H 18 120/68 05/18/25 19:55 36.6 C 19 140/65 05/18/25 19:45 36.5 C 99 H 19 140/65 05/18/25 19:35 100 H 19 105/79 05/18/25 19:27 36.7 C 103 H 19 107/84 05/18/25 16:50 36.6 C 86 21 128/68 05/18/25 15:25 97 H 05/18/25 15:17 36.2 C L 85 16 106/67 05/18/25 11:18 36.8 C 114 H 20 97/61 L 05/18/25 08:34 36.8 C 103 H 20 126/66 05/18/25 07:16 92 H 05/18/25 02:22 36.4 C L 100 H 16 113/73 05/17/25 22:23 36.4 C L 93 H 18 110/65 05/17/25 21:52 85 Pulse Ox O2 Del Method O2 Flow Rate 05/18/25 20:09 97 Nasal Cannula 2 05/18/25 19:55 98 Oxymask 5 05/18/25 19:45 98 Oxymask 5 05/18/25 19:35 100 Oxymask 5 05/18/25 19:27 100 Oxymask 10 05/18/25 16:50 98 Room Air 05/18/25 15:25 05/18/25 15:17 99 Room Air 05/18/25 11:18 98 Room Air 05/18/25 08:34 98 Room Air 05/18/25 07:16 05/18/25 02:22 99 Room Air 05/17/25 22:23 96 Room Air 05/17/25 21:52 Pain Intensity Abdomen: Pain Intensity: 0 Transfer of Care Handoff Completed per policy Notes Mental Status: alert / awake / arousable and participated in evaluation Patient Amnestic to Procedure: Yes Nausea / Vomiting: adequately controlled Pain: adequately controlled Airway Patency, RR, SpO2: stable & adequate BP & HR: stable & adequate Hydration State: stable & adequate Anesthetic Complications: no major complications apparent and Pt Satisfied with anesthetic care
--- NOTE | 2025-05-18 20:37 | Communication Note ---
Date of Service: May 18, 2025 Patient is post ERCP seen in recovery room. Pain-free. Test results discussed. Clear liquids today. Advance diet tomorrow can be discharged. Patient should receive complete course of deficit.
[2025-05-19 07:21] LABS: Hematocrit (blood only) 33.6 % (37.0-47.0); Hemoglobin 10.8 g/dL (12.0-16.0); Mean Corpuscular Hemoglobin 28.7 pg (25.0-34.0); Mean Corpuscular Volume 89.4 fL (80.0-100.0); Platelet Count 218 K/uL (130-400); RDW Standard Deviation 47.1 fL (36.4-46.3); Red Blood Count 3.76 M/uL (4.20-5.40); White Blood Count 7.42 K/ul (4.8-10.8)
--- NOTE | 2025-05-19 07:45 | Hospitalist Progress Note ---
Date of Service May 19, 2025 Assessment & Plan (1) Abdominal pain: (2) C. difficile colitis: (3) Choledocholithiasis: (4) CLAY (acute kidney injury): (5) Hyponatremia: Plan Patient is an 89y/o F with PMHx significant for A-fib anticoagulated on Eliquis, hypertension, hyperlipidemia, hypothyroidism and chronic traumatic RLE wound who presented to the ED on 05/13/2025 with c/o watery diarrhea, abdominal pain and worsening generalized weakness x 3 days with associated poor p.o. intake. CTAP with evidence of pancolitis, (+) C. diff gene and toxin. Patient with complex health course since January 2025. Recent confinement at [facility] in January 2025 for possible PNA, UTI, traumatic rhabdomyolysis/chronic RLE wound. Was subsequently DC'd to [facility] following that hospitalization. Admitted to [facility] 04/15/25-04/20/25 for newly diagnosed acute diastolic HF, A-fib with RVR s/p cardioversion x 1 on 04/17/25, possible PNA and chronic RLE wound. TTE performed 04/18/25 with preserved LVEF = 60%, moderately dilated RA, moderately dilated LA and mild TR. Was DC'd home 2 days CHAPLAIN RESIDENT at this facility. C. difficile pancolitis POA In setting of recent admissions, had been on ABX for her RLE wound. Initially started on oral vanco; however, switched to Dificid on 05/15 due to uptrending leukocytosis and minimal clinical improvement. Abd pain improved. WBC normalized. Continues with liquid stool but becoming less frequent per d/w RN. Continue contact precautions, Dificid (EOT on 05/24). CLAY -- resolved Tachycardia and hypotension In setting of poor p.o. intake, GI losses. CLAY resolved s/p IVF (Cr peaked at 1.73 on 05/13). Hypotension improving s/p IVF >> continuing to hold diltiazem for now as BP remains soft but overall stable compared to prior. Tachycardia now also improving as GI losses slow and p.o. intake increases, continue to monitor. Recent aspiration event on 05/15 Initial workup included RVP and CXR. RVP negative. 1st CXR showed a possible RLL opacity however repeat CXRs were unremarkable. Feel initial RLL opacity represented atelectasis rather than infectious etiology given lack of any major cardiopulmonary complaints >> ISP ordered. PRESSURISED CONTAINER FILLER also evaluated the pt and did NOT witness any evidence of [place] aspiration. Aspiration ruled-out. Choledocholithiasis s/p ERCP CTAP on admission with dilated CBD with hyperdense calculus measuring 4mm at the distal end suggestive of choledocholithiasis. LFTs, including T. bili, remain grossly unremarkable. GI consulted for further evaluation of this finding >> feels this is an incidental finding. MRCP completed 05/26: Biliary ductal dilatation with distal choledocholithiasis. No pancreatic ductal dilatation. S/p ERCP on 05/18 with successful retrieval of the CBD stone into the duodenum. LFTs, lipase stable >> can advance diet per GI. Continue to monitor LFTs. Hypotonic, hypovolemic hyponatremia -- resolved 2/2 volume losses (dehydration/diuretic use), acute infection and subtherapeutic tx of hypothyroidism. Na improved s/p IVF. Continue to hold home diuretics for now. Urinary retention Noted on 05/15 >> Davis cath was placed. Likely in light of significant physical deconditioning. Will need to do voiding trial once pt is more ambulatory. Chronic HFpEF Newly diagnosed diastolic HF during hospitalization at [facility] last month as per above. -TTE, 04/18/25: preserved LVEF = 60%, moderately dilated RA, moderately dilated LA and mild TR. -Started on po Lasix 40mg BID, Aldactone 25mg daily by cardiology at time of DC. 3+ RLE pitting edema appreciated on exam >> unchanged from days prior. No LLE edema. Doubt DVT given chronic anticoagulation therapy, suspect RLE edema 2/2 chronic RLE wound. Also had grossly unremarkable RLE venous reflux duplex last month, no DVT. MRCP did incidentally note mild ascites and small R>L pleural effusions. -Pt w/o any significant cardiopulmonary complaints. -Will continue to hold CHAPLAIN RESIDENT diuretics for now as BP remains soft and pt is w/o any cardiopulmonary compromise. Atrial fibrillation chronically anticoagulated on Eliquis Recent DC cardioversion during hospitalization at [facility] last month 2/2 A-fib with RVR. Was started on diltiazem 180mg daily. Also started on amiodarone. Holding diltiazem for now as per above. Okay to resume Eliquis today as per d/w GI. Amiodarone on tapering dose >> 400mg BID x 2wk (05/13-05/24), then 200mg BID x 2wk (05/25-06/07), then 200mg daily (beginning 06/08). HTN Hypotension overall stable, continuing to hold diuretics and diltiazem as per above. Pressure ulcer of R anterior leg, stage 4, POA >> Sustained 2/2 crush injury after a fall in January 2025. Pressure ulcer of R ischium, stage 3, POA Follows with [facility] wound care, WOCN consulted. Hypothyroidism TSH elevated at 23.958, up from 5.207 in February 2025. Increased levothyroxine to 50mcg dailyBB >> f/u with repeat TFTs in 6-8 weeks on OP basis. Anemia Suspect dilutional changes however will check routine Fe panel in AM, continue to monitor. DVT Prophylaxis: SCDs/TEDs, Eliquis Code Status: DNR/DNI PCP: Joaquina Haji MD Disposition: PT/OT recommending rehab, appreciate CM assistance. Pt lives with her great nephew. Pt's family requesting daily updates. Will reach out to her daughter this afternoon. Ms. Daylin Patel (daughter), contact #[phone]. Mr. Bob Patel (grandson), contact #[phone]. Patient seen in collaboration with Dr. Mendez. Please see addendum. I spent a total of 42 minutes coordinating, documenting, and providing care for this patient excluding time spent in the performance of separately billed services or time spent by another provider/QHP. This included personally reviewing all current laboratories and imaging studies, medical reconciliation, outpatient chart review and discussion with specialists. Admission and Anticipated Discharge Date Admission Date: May 13, 2025 Supervising Physician Co-Signing Physician Notes Pt seen and examined by me, care coordinated w/ Flynn Murray PA-C, pls refer to her note for further detail. Pt is currently lying in bed in NAD, she is awake, alert, answers appropriately. Says she continues to have frequent diarrhea, per RN she had 4 BMs today semiformed. She was switched previously to Dificid from PO Vanco. WBC is decreased/normalized, pt is afebrile. denies fever, chills, chest pain or shortness of breath. +right LE .edema. Only complains that she has BM as soon as eats/ drinks anything. GI is following and discussed with, pt is s/p ERCP yesterday. Pt denies any abd. pain. MD Vanessa Subjective Patient seen and examined in room N282-2. Diarrhea continues to improve, had one small bout so far this morning. S/p ERCP last evening. Denies any abdominal pain. Tolerating clear liquid diet without issue. Review of Systems Review of Systems: At least ten systems reviewed and negative, except as noted in the subjective section. Physical Exam Physical Exam: General: Elderly F. Laying down in bed. Was asleep when I entered the room but aroused easily with verbal stimuli, A&Ox3. HEENT: Normocephalic, atraumatic. Somewhat dry mucous membranes of the oropharynx. Respiratory: Normal respiratory effort, CTAB. Cardiovascular: Regular rate, irregularly irregular rhythm. 3+ RLE edema, no LLE edema. Abdomen/GI: Active bowel sounds, mild tenderness to deep palpation across lower abdomen, soft/nondistended. Extremities/Musculoskeletal: + chronic RLE wound covered by dressing which is C/D/I (wound not directly visualized), able to actively move all extremities. Neurologic: No overt focal deficits, CN's II-XI not formally tested but appear grossly intact bilaterally. Results & Data Results & Data Vital Signs (Past 12 Hours) Vital Signs Temp Pulse Pulse Pulse Resp BP Pulse Ox 05/19/25 07:26 76 05/19/25 03:36 36.6 C 77 18 103/64 100 05/18/25 22:30 36.5 C 82 18 104/66 100 05/18/25 21:41 87 05/18/25 21:30 36.5 C 81 16 107/67 100 05/18/25 20:39 05/18/25 20:31 36.4 C L 81 16 119/64 98 05/18/25 20:09 36.3 C L 91 H 18 120/68 97 05/18/25 19:55 36.6 C 19 140/65 98 05/18/25 19:45 36.5 C 99 H 19 140/65 98 05/18/25 19:35 100 H 19 105/79 100 O2 Del Method O2 Flow Rate 05/19/25 07:26 05/19/25 03:36 Nasal Cannula 2 05/18/25 22:30 Nasal Cannula 2 05/18/25 21:41 05/18/25 21:30 Nasal Cannula 2 05/18/25 20:39 Nasal Cannula 2 05/18/25 20:31 Nasal Cannula 2 05/18/25 20:09 Nasal Cannula 2 05/18/25 19:55 Oxymask 5 05/18/25 19:45 Oxymask 5 05/18/25 19:35 Oxymask 5 Laboratory Results Short CBC 05/19/25 Range/Units 06:34 WBC 7.42 (4.8-10.8) K/ul Hgb 10.8 L (12.0-16.0) g/dL Hct 33.6 L (37.0-47.0) % Plt Count 218 (130-400) K/uL Medications Administered Current Inpatient Medications Acetaminophen (Acetaminophen 325 Mg Tab) 650 mg PO QID PRN PRN Reason: pain/fever Stop: 06/12/25 04:06 Last Admin: 05/13/25 22:22 Dose: 650 mg Amiodarone HCl (Amiodarone 200 Mg Tab) 400 mg PO BID ON LICENSE OF [facility]; Taper Stop: 07/08/25 08:59 Last Admin: 05/19/25 09:56 Dose: 400 mg Apixaban (Apixaban 2.5 Mg Tab) 2.5 mg PO BID ON LICENSE OF [facility] Stop: 06/18/25 11:59 Last Admin: 05/19/25 12:40 Dose: 2.5 mg Diltiazem HCl (Diltiazem Hcl 180 Mg Capcr) 180 mg PO DAILY ON LICENSE OF [facility] Stop: 06/12/25 08:59 Last Admin: 05/15/25 09:42 Dose: Not Given Fidaxomicin (Fidaxomicin 200 Mg Tab) 200 mg PO BID ON LICENSE OF [facility] Stop: 05/25/25 11:44 Last Admin: 05/19/25 09:55 Dose: 200 mg Hydromorphone HCl (Hydromorphone Inj 0.5 Mg/0.5 Ml Syr) 0.25 mg IV Q4H PRN PRN Reason: Pain Stop: 05/27/25 22:45 Promethazine HCl (Phenergan) 6.25 mg in 50.25 mls @ 201 mls/hr IV Q6H PRN PRN Reason: Nausea And Vomiting Stop: 06/12/25 04:06 Last Infusion: 05/13/25 08:56 Dose: Infused Lactobacillus Acidophilus (Advanced Probiotic 625 Mg Capsule) 1,250 mg PO DAILY ON LICENSE OF [facility] Stop: 06/15/25 15:14 Last Admin: 05/19/25 09:55 Dose: 1,250 mg Levothyroxine Sodium (Levothyroxine Sodium 75 Mcg Tablet) 75 mcg PO DAILYBB ON LICENSE OF [facility] Stop: 06/13/25 06:29 Last Admin: 05/19/25 06:36 Dose: 75 mcg Multivitamins/Minerals (Cerovite Adv Formula Tab) 1 tab PO DAILY NARENDRA Stop: 06/12/25 08:59 Last Admin: 05/19/25 09:56 Dose: 1 tab Oxycodone HCl (Oxycodone Hcl Ir 5 Mg Tab (Immediate Release)) 5 mg PO Q4H PRN PRN Reason: Pain Stop: 05/27/25 04:06
[2025-05-19 07:55] LABS: Alanine Aminotransferase 32.0 U/L (7-52); Albumin Globulin Ratio 1.2 (0.9-2); Albumin Level 2.6 gm/dl (3.4-5.0); Alkaline Phosphatase 66.0 U/L (34-104); Anion Gap 6.0 (3-11); Bilirubin,Total 0.3 mg/dl (0.2-1.0); Blood Urea Nitrogen 16.0 mg/dl (6-23); Calcium 7.9 mg/dl (8.6-10.3); Carbon Dioxide 18.0 mmol/L (21-32); Chloride 113.0 mmol/L (98-107); Creatinine Clr Calc Pharmacy 47.8 ml/min; Globulin 2.2 gm/dl (2.5-4.0); Glucose 74.0 mg/dl (70-99(Fasting)); Lipase 150.0 U/L (11-82); Magnesium 1.9 mg/dl (1.7-2.4); Potassium 3.8 mmol/L (3.5-5.1); Sodium 137.0 mmol/L (136-145); Total Protein 4.8 gm/dl (6.0-8.3)
--- NOTE | 2025-05-19 08:45 | Fluoroscopy Report ---
INTRAOPERATIVE RADIOGRAPHS CLINICAL HISTORY: ERCP. Fluoro time: 2 minutes 31 seconds Ka,r: 33.51 mGy FINDINGS: 3 spot fluoroscopic views the right upper quadrant from an ERCP procedure are presented. Co rrelation is made to MRCP dated 05/16/2025. Contrast within the common bile duct shows common bile du ct dilatation. There is no significant intrahepatic biliary ductal dilatation. Intraluminal filling d efects within the common bile duct are consistent with choledocholithiasis. A balloon sweep of the co mmon bile duct is performed. IMPRESSION: Intraoperative ERCP images as above. See operative report for detailed findings. Electronically signed by: John Mauricio M.D. 05/19/2025 8:42 AM
[2025-05-19] MEDS ORDERED: AMIODARONE 200 MG TAB PO SCH (09:00)
--- NOTE | 2025-05-19 09:46 | Communication Note ---
Date of Service: May 19, 2025 lfts lipase ok, can advance diet low far
[2025-05-19] MEDS: APIXABAN 2.5 MG TAB PO SCH (12:40)
[2025-05-20 08:13] LABS: Hematocrit (blood only) 34.9 % (37.0-47.0); Hemoglobin 11.0 g/dL (12.0-16.0); Mean Corpuscular Hemoglobin 28.6 pg (25.0-34.0); Mean Corpuscular Volume 90.9 fL (80.0-100.0); Platelet Count 228 K/uL (130-400); RDW Standard Deviation 48.3 fL (36.4-46.3); Red Blood Count 3.84 M/uL (4.20-5.40); White Blood Count 7.21 K/ul (4.8-10.8)
[2025-05-20 08:35] LABS: Alanine Aminotransferase 31 U/L (7-52); Albumin Globulin Ratio 1.1 (0.9-2); Albumin Level 2.6 gm/dl (3.4-5.0); Alkaline Phosphatase 60 U/L (34-104); Anion Gap 4 (3-11); Bilirubin,Total 0.2 mg/dl (0.2-1.0); Blood Urea Nitrogen 14 mg/dl (6-23); Calcium 7.7 mg/dl (8.6-10.3); Carbon Dioxide 20 mmol/L (21-32); Chloride 114 mmol/L (98-107); Creatinine Clr Calc Pharmacy 49.5 ml/min; Globulin 2.3 gm/dl (2.5-4.0); Glucose 91 mg/dl (70-99(Fasting)); Magnesium 1.8 mg/dl (1.7-2.4); Potassium 4.1 mmol/L (3.5-5.1); Sodium 138 mmol/L (136-145); Total Iron Binding Cap Calc 225 mcg/dl (250-450); Total Protein 4.9 gm/dl (6.0-8.3); Transferrin 161 mg/dl (200-360)
[2025-05-20 08:53] LABS: Ferritin 172.3 ng/ml (8-388)
--- NOTE | 2025-05-20 11:53 | Hospitalist Progress Note ---
Date of Service May 20, 2025 Assessment & Plan (1) Abdominal pain: (2) C. difficile colitis: (3) Choledocholithiasis: (4) CLAY (acute kidney injury): (5) Hyponatremia: Plan Patient is an 89y/o F with PMHx significant for A-fib anticoagulated on Eliquis, hypertension, hyperlipidemia, hypothyroidism and chronic traumatic RLE wound who presented to the ED on 05/13/2025 with c/o watery diarrhea, abdominal pain and worsening generalized weakness x 3 days with associated poor p.o. intake. CTAP with evidence of pancolitis, (+) C. diff gene and toxin. Patient with complex health course since January 2025. Recent confinement at [facility] in January 2025 for possible PNA, UTI, traumatic rhabdomyolysis/chronic RLE wound. Was subsequently DC'd to [facility] following that hospitalization. Admitted to [facility] 04/15/25-04/20/25 for newly diagnosed acute diastolic HF, A-fib with RVR s/p cardioversion x 1 on 04/17/25, possible PNA and chronic RLE wound. TTE performed 04/18/25 with preserved LVEF = 60%, moderately dilated RA, moderately dilated LA and mild TR. Was DC'd home 2 days [employer] at this facility. C. difficile pancolitis POA In setting of recent admissions, had been on ABX for her RLE wound. Initially started on oral vanco; however, switched to Dificid on 05/15 due to uptrending leukocytosis and minimal clinical improvement. Abd pain resolved. WBC normalized. Had 4-5 BMs yesterday and 2-3 BMs overnight >> starting to form up, not as loose per d/w RN. Continue contact precautions, Dificid (EOT on 05/24). CLAY -- resolved Tachycardia and hypotension In setting of poor p.o. intake, GI losses. CLAY resolved s/p IVF (Cr peaked at 1.73 on 05/13). Hypotension improved s/p IVF repletion >> continuing to hold diltiazem for now as BP remains soft but overall stable compared to prior. Tachycardia now also improving as GI losses slow and p.o. intake increases, continue to monitor. Recent aspiration event on 05/15 Initial workup included RVP and CXR. RVP negative. 1st CXR showed a possible RLL opacity however repeat CXRs were unremarkable. Feel initial RLL opacity represented atelectasis rather than infectious etiology given lack of any major cardiopulmonary complaints >> ISP ordered. CHIEF PROCUREMENT OFFICER also evaluated the pt and did NOT witness any evidence of [place] aspiration. Aspiration ruled-out. Choledocholithiasis s/p ERCP CTAP on admission with dilated CBD with hyperdense calculus measuring 4mm at the distal end suggestive of choledocholithiasis. LFTs, including T. bili, remain grossly unremarkable. GI consulted for further evaluation of this finding >> feels this is an incidental finding. MRCP completed 05/26: Biliary ductal dilatation with distal choledocholithiasis. No pancreatic ductal dilatation. S/p ERCP on 05/18 with successful retrieval of the CBD stone into the duodenum. LFTs remain stable, will continue to monitor. Hypotonic, hypovolemic hyponatremia -- resolved 2/2 volume losses (dehydration/diuretic use), acute infection and subtherapeutic tx of hypothyroidism. Na improved s/p IVF. Continuing to hold home diuretics for now. Urinary retention Noted on 05/15 >> Davis cath was placed. Likely in light of significant physical deconditioning. Will need to do voiding trial once pt is more ambulatory >> ? consider this prior to DC. Chronic HFpEF Newly diagnosed diastolic HF during hospitalization at [facility] last month as per above. -TTE, 04/18/25: preserved LVEF = 60%, moderately dilated RA, moderately dilated LA and mild TR. -Started on po Lasix 40mg BID, Aldactone 25mg daily by cardiology at time of DC. Continues to have RLE pitting edema >> has somewhat improved today, was 3+ over past few days, 2+ this AM. No LLE edema. Doubt DVT given chronic anticoagulation therapy, suspect RLE edema 2/2 chronic RLE wound. Also had grossly unremarkable RLE venous reflux duplex last month, no DVT. MRCP did incidentally note mild ascites and small R>L pleural effusions. -Pt w/o any significant cardiopulmonary complaints. -Will continue to hold [employer] diuretics for now as BP remains soft and pt is w/o any cardiopulmonary compromise. Atrial fibrillation chronically anticoagulated on Eliquis Recent DC cardioversion during hospitalization at [facility] last month 2/2 A-fib with RVR. Was started on diltiazem 180mg daily. Also started on amiodarone. Holding diltiazem for now as per above. Eliquis resumed on 05/19 following d/w GI. Amiodarone on tapering dose >> 400mg BID x 2wk (05/13-05/24), then 200mg BID x 2wk (05/25-06/07), then 200mg daily (beginning 06/08). HTN BP remains soft but stable overall, continuing to hold diuretics and diltiazem as per above. Pressure ulcer of R anterior leg, stage 4, POA >> Sustained 2/2 crush injury after a fall in January 2025. Pressure ulcer of R ischium, stage 3, POA Follows with [facility] wound care, WOCN consulted. Hypothyroidism TSH elevated at 23.958, up from 5.207 in February 2025. Increased levothyroxine to 50mcg dailyBB >> f/u with repeat TFTs in 6-8 weeks on OP basis. Anemia Anemia workup c/w Fe deficiency, will start on p.o. supplementation. Continue CBC monitoring. Hypocalcemia Check ionized calcium, 25-OH vit D in AM. DVT Prophylaxis: SCDs/TEDs, Eliquis Code Status: DNR/DNI PCP: Joaquina Haji MD Disposition: PT/OT recommending rehab, appreciate CM assistance. Pt lives with her great nephew. Spoke with the pt's daughter, Winter, over the phone >> agreeable with referral to [facility] (pt most recently there) >> d/w CM. Pt's family requesting daily updates. Ms. Winter Patel (daughter), contact #[phone]. Mr. Bob Patel (grandson), contact #[phone]. Patient seen in collaboration with Dr. Mendez. Please see addendum. I spent a total of 48 minutes coordinating, documenting, and providing care for this patient excluding time spent in the performance of separately billed services or time spent by another provider/QHP. This included personally reviewing all current laboratories and imaging studies, medical reconciliation, outpatient chart review and discussion with specialists. Admission and Anticipated Discharge Date Admission Date: May 13, 2025 Supervising Physician Co-Signing Physician Notes Pt seen and examined by me, care coordinated w/ B. Terri NARANJO, pls refer to her note for further detail. Pt is currently lying in bed in NAD, she is awake, alert, answers appropriately. Says she continues to have diarrhea, per RN stool is semiformed. She was switched previously to Dificid from PO Vanco. WBC is decreased/normalized, pt is afebrile. denies fever, chills, chest pain or shortness of breath. +right LE .edema. S/p ERCP. lipase only mildly elevated, no abd. pain. Diet advanced MD Vanessa Subjective Patient seen and examined in room N282-2. No major complaints this morning. 2-3 BMs overnight per RN which have started to form, not as loose. Review of Systems Review of Systems: At least ten systems reviewed and negative, except as noted in the subjective section. Physical Exam Physical Exam: General: Elderly F. Laying down in bed. A&Ox3. Appears very fatigued. HEENT: Normocephalic, atraumatic. Somewhat dry mucous membranes of the oropharynx. Respiratory: Normal respiratory effort, CTAB. Cardiovascular: Regular rate, irregularly irregular rhythm. 2+ RLE edema (somewhat improved compared to days prior), no LLE edema. Abdomen/GI: Active bowel sounds, nontender to palpation in all quadrants, soft/nondistended. Extremities/Musculoskeletal: + chronic RLE wound covered by dressing which is C/D/I (wound not directly visualized), able to actively move all extremities. Neurologic: No overt focal deficits, CN's II-XI not formally tested but appear grossly intact bilaterally. Results & Data Results & Data Vital Signs (Past 12 Hours) Vital Signs Temp Pulse Pulse Resp BP Pulse Ox O2 Del Method 05/20/25 07:41 36.7 C 80 20 113/77 96 Room Air 05/20/25 07:08 79 05/20/25 04:00 36.4 C L 86 18 138/77 96 Room Air Laboratory Results Short CBC 05/20/25 Range/Units 07:53 WBC 7.21 (4.8-10.8) K/ul Hgb 11.0 L (12.0-16.0) g/dL Hct 34.9 L (37.0-47.0) % Plt Count 228 (130-400) K/uL BMP 05/20/25 07:53 Sodium 138 Potassium 4.1 Chloride 114 H Carbon Dioxide 20 L BUN 14 Creatinine 0.85 Glucose 91 Calcium 7.7 L Liver Function 05/20/25 Range/Units 07:53 Total Bilirubin 0.2 (0.2-1.0) mg/dl AST 30 (13-39) U/L ALT 31 (7-52) U/L Alkaline Phosphatase 60 (34-104) U/L Albumin 2.6 L (3.4-5.0) gm/dl Medications Administered Current Inpatient Medications Acetaminophen (Acetaminophen 325 Mg Tab) 650 mg PO QID PRN PRN Reason: pain/fever Stop: 06/12/25 04:06 Last Admin: 05/13/25 22:22 Dose: 650 mg Amiodarone HCl (Amiodarone 200 Mg Tab) 400 mg PO BID [facility]; Taper Stop: 07/08/25 08:59 Last Admin: 05/20/25 10:16 Dose: 400 mg Apixaban (Apixaban 2.5 Mg Tab) 2.5 mg PO BID [facility] Stop: 06/18/25 11:59 Last Admin: 05/20/25 10:18 Dose: 2.5 mg Diltiazem HCl (Diltiazem Hcl 180 Mg Capcr) 180 mg PO DAILY [facility] Stop: 06/12/25 08:59 Last Admin: 05/15/25 09:42 Dose: Not Given Ferrous Sulfate (Ferrous Sulfate 325 Mg Tab) 325 mg PO QAM [facility] Stop: 06/20/25 08:59 Fidaxomicin (Fidaxomicin 200 Mg Tab) 200 mg PO BID [facility] Stop: 05/25/25 11:44 Last Admin: 05/20/25 10:16 Dose: 200 mg Hydromorphone HCl (Hydromorphone Inj 0.5 Mg/0.5 Ml Syr) 0.25 mg IV Q4H PRN PRN Reason: Pain Stop: 05/27/25 22:45 Promethazine HCl (Phenergan) 6.25 mg in 50.25 mls @ 201 mls/hr IV Q6H PRN PRN Reason: Nausea And Vomiting Stop: 06/12/25 04:06 Last Infusion: 05/13/25 08:56 Dose: Infused Lactobacillus Acidophilus (Advanced Probiotic 625 Mg Capsule) 1,250 mg PO DAILY [facility] Stop: 06/15/25 15:14 Last Admin: 05/20/25 10:16 Dose: 1,250 mg Levothyroxine Sodium (Levothyroxine Sodium 75 Mcg Tablet) 75 mcg PO DAILYBB [facility] Stop: 06/13/25 06:29 Last Admin: 05/20/25 10:18 Dose: 75 mcg Multivitamins/Minerals (Cerovite Adv Formula Tab) 1 tab PO DAILY [facility] Stop: 06/12/25 08:59 Last Admin: 05/20/25 10:16 Dose: 1 tab Oxycodone HCl (Oxycodone Hcl Ir 5 Mg Tab (Immediate Release)) 5 mg PO Q4H PRN PRN Reason: Pain Stop: 05/27/25 04:06
[2025-05-21 07:12] LABS: Hematocrit (blood only) 35.9 % (37.0-47.0); Hemoglobin 11.4 g/dL (12.0-16.0); Mean Corpuscular Hemoglobin 28.9 pg (25.0-34.0); Mean Corpuscular Volume 90.9 fL (80.0-100.0); Platelet Count 262 K/uL (130-400); RDW Standard Deviation 47.9 fL (36.4-46.3); Red Blood Count 3.95 M/uL (4.20-5.40); White Blood Count 7.70 K/ul (4.8-10.8)
[2025-05-21 07:35] LABS: Anion Gap 6.0 (3-11); Blood Urea Nitrogen 14.0 mg/dl (6-23); Calcium 8.0 mg/dl (8.6-10.3); Carbon Dioxide 20.0 mmol/L (21-32); Chloride 113.0 mmol/L (98-107); Creatinine Clr Calc Pharmacy 51.3 ml/min; Glucose 101.0 mg/dl (70-99(Fasting)); Magnesium 1.7 mg/dl (1.7-2.4); Potassium 4.2 mmol/L (3.5-5.1); Sodium 139.0 mmol/L (136-145)
[2025-05-21] MEDS: FERROUS SULFATE 325 MG TAB PO SCH (08:47)
--- NOTE | 2025-05-21 09:12 | Hospitalist Progress Note ---
Date of Service May 21, 2025 Assessment & Plan (1) Abdominal pain: (2) C. difficile colitis: (3) Choledocholithiasis: (4) Chronic heart failure with preserved ejection fraction (HFpEF): (5) Atrial fibrillation: (6) Hypothyroidism: (7) Iron deficiency anemia: (8) Hypocalcemia: (9) Chronic ulcer of right leg: Plan 89y/o F with PMHx significant for A-fib anticoagulated on Eliquis, hypertension, hyperlipidemia, hypothyroidism and chronic traumatic RLE wound who presented to the ED on 05/13/2025 with c/o watery diarrhea, abdominal pain and worsening generalized weakness x 3 days with associated poor p.o. intake. CTAP with evidence of pancolitis, (+) C. diff gene and toxin. C. difficile pancolitis Admitting CTAP revealed diffuse mucosal thickening with adjacent fat stranding in cecum, ascending colon, hepatic and splenic flexure, descending sigmoid colon, rectum Two recent hospitalizations ([facility] in January and [facility] in March) with recent abx use for chronic RLE wound Abdominal pain and diarrhea resolved on Dificid - continue until 05/25 Continue contact precautions PT/OT recommending rehab - anticipate dc to [facility] tomorrow Choledocholithiasis s/p ERCP Admitting CTAP noted dilated CBD with hyperdense calculus measuring 4mm at the distal end suggestive of choledocholithiasis. MRCP noted biliary ductal dilatation with distal choledocholithiasis. No pancreatic ductal dilatation. s/p ERCP on 05/18 with successful retrieval of the CBD stone into the duodenum Chronic HFpEF Newly diagnosed diastolic HF during hospitalization at [facility] in March- > started on lasix and spironolactone TTE, 04/18/25: preserved LVEF = 60%, moderately dilated RA, moderately dilated LA and mild TR. Patient appears euvolemic Diuretics initially held due to hypotension-> resume spironolactone today Resume lasix tomorrow if BP continues to be stable Atrial fibrillation chronically anticoagulated on Eliquis Recent DC cardioversion during hospitalization at [facility] in March due to RVR-> started on diltiazem and amiodarone Diltiazem initially held due to hypotension-> resume diltiazem today Continue Eliquis and amiodarone taper>> 400mg BID x 2wk (05/13-05/24), then 200mg BID x 2wk (05/25-06/07), then 200mg daily (beginning 06/08). HTN Initially hypotensive BP 140s/80s today Resume diltiazem and spironolactone today as above Resume lasix tomorrow if BP continues to be stable Hypothyroidism Admitting TSH elevated at 23.958, up from 5.207 in February 2025. Increased levothyroxine to 75mcg daily Recommend repeat TFTs in 6-8 weeks on OP basis Iron deficiency anemia Anemia workup c/w Fe deficiency Continue iron supplementation Continue CBC monitoring Hypocalcemia Vitamin D deficiency Ca 8.0 today with normal ionized calcium Vitamin D level 15 -> start ergocalciferol 50,000 units weekly Recommend repeat level in 6-12 weeks on OP basis Pressure ulcer of R anterior leg, stage 4, POA Pressure ulcer of R ischium, stage 3, POA Follows with [facility] wound care Wound care as per WOCN Hyponatremia-> resolved 2/2 volume losses Na improved s/p IVF CLAY-> resolved Creat peaked at 1.73 and resolved s/p IVF Avoid nephrotoxic agents as able Monitor renal function DVT Prophylaxis: on Eliquis Code Status: DNR/DNI PCP: Joaquina Haji MD Disposition: anticipate dc to [facility] tomorrow Pt's family requesting daily updates. Ms. Winter Patel (daughter), contact #[phone]. Mr. Bob Patel (grandson), contact #[phone]. Patient seen in collaboration with Dr. Mendez. Please see addendum. I spent a total of 60 minutes coordinating, documenting and providing care for this patient excluding time spent in the performance of separately billed services or time spent by another provider/QHP. Admission and Anticipated Discharge Date Admission Date: May 13, 2025 Supervising Physician Co-Signing Physician Notes Pt seen and examined by me, care coordinated w/ M. Tianna NARANJO, pls refer to her note for further detail. Pt is currently lying in bed in NAD, she is awake, alert, answers appropriately. She is doing much better today. She is being treated for c. diff and also pt underwent ERCP during this hospitalization for choledocholethiasis. Pt had no BM overnight. She is having diet, denies any abd. pain. Also no abd. pain on palpation. She is asking about changing her protein shake to water based instead of dairy - discussed w/ RN at the bedside - will contact shell sieve operator to assist. She was switched previously to Dificid from PO Vanco. WBC is d ecreased/normalized, pt is afebrile. denies fever, chills, chest pain or shortness of breath. +right LE .edema improved. MD Vanessa Subjective Patient seen resting in bed Reports her diarrhea is resolved Denies dizziness, chest pain, SOB, abdominal pain, N/V Review of Systems Review of Systems: All systems reviewed & are unremarkable except as noted in HPI & below Physical Exam Physical Exam: General/Psych: obese, sitting up in bed, NAD, conversing easily, flat affect Head: normocephalic, atraumatic Eyes: normal inspection, PERRL, conjunctivae pink ENT: external ear and nose normal, oropharynx normal Neck: normal visual inspection, trachea midline Respiratory: normal respiratory effort, lungs clear to auscultation, no wheeze/rales/rhonchi, no accessory muscle use Cardiovascular: irregularly irregular rate and rhythm, no murmur/rub/gallop Extremities: no cyanosis or clubbing, normal pulses and no edema LLE, 2+ pitting edema R foot, decreased pulse in right foot but warm with brisk cap refill Abdomen/GI: normal bowel sounds, soft, nontender Neurologic/MSK: A+Ox3, motor strength 5/5, moves all extremities Skin: no rashes, normal color, warm and dry, dressing to RLE c/d/i Results & Data Results & Data Vital Signs (Past 12 Hours) Vital Signs Temp Pulse Pulse Pulse Resp BP BP 05/21/25 08:09 36.9 C 99 H 20 147/81 H 05/21/25 07:11 99 H 05/21/25 03:52 36.6 C 80 18 118/74 05/20/25 23:35 36.6 C 74 18 124/72 05/20/25 21:46 86 Pulse Ox O2 Del Method 05/21/25 08:09 97 Room Air 05/21/25 07:11 05/21/25 03:52 96 Room Air 05/20/25 23:35 93 Room Air 05/20/25 21:46 Laboratory Results Short CBC 11/24/25 Range/Units 06:15 WBC 7.70 (4.8-10.8) K/ul Hgb 11.4 L (12.0-16.0) g/dL Hct 35.9 L (37.0-47.0) % Plt Count 262 (130-400) K/uL BMP 05/21/25 06:15 Sodium 139 Potassium 4.2 Chloride 113 H Carbon Dioxide 20 L BUN 14 Creatinine 0.82 Glucose 101 H Calcium 8.0 L I have independently reviewed and interpreted patient's labs including CBC, BMP, mag, ionized calcium, vitamin D Medications Administered Current Inpatient Medications Acetaminophen (Acetaminophen 325 Mg Tab) 650 mg PO QID PRN PRN Reason: pain/fever Stop: 06/12/25 04:06 Last Admin: 05/13/25 22:22 Dose: 650 mg Amiodarone HCl (Amiodarone 200 Mg Tab) 400 mg PO BID [facility]; Taper Stop: 07/08/25 08:59 Last Admin: 05/21/25 08:46 Dose: 400 mg Apixaban (Apixaban 2.5 Mg Tab) 2.5 mg PO BID [facility] Stop: 06/18/25 11:59 Last Admin: 05/21/25 08:47 Dose: 2.5 mg Diltiazem HCl (Diltiazem Hcl 180 Mg Capcr) 180 mg PO DAILY [facility] Stop: 06/12/25 08:59 Last Admin: 05/21/25 08:47 Dose: 180 mg Ergocalciferol (Ergocalciferol 1250 Mcg (50,000 Units) Cap) 1,250 mcg PO Mo@0900 [facility] Stop: 06/20/25 08:59 Last Admin: 05/21/25 10:11 Dose: 1,250 mcg Ferrous Sulfate (Ferrous Sulfate 325 Mg Tab) 325 mg PO QAM [facility] Stop: 06/20/25 08:59 Last Admin: 05/21/25 08:47 Dose: 325 mg Fidaxomicin (Fidaxomicin 200 Mg Tab) 200 mg PO BID [facility] Stop: 05/25/25 11:44 Last Admin: 05/21/25 08:46 Dose: 200 mg Hydromorphone HCl (Hydromorphone Inj 0.5 Mg/0.5 Ml Syr) 0.25 mg IV Q4H PRN PRN Reason: Pain Stop: 05/27/25 22:45 Promethazine HCl (Phenergan) 6.25 mg in 50.25 mls @ 201 mls/hr IV Q6H PRN PRN Reason: Nausea And Vomiting Stop: 06/12/25 04:06 Last Infusion: 05/13/25 08:56 Dose: Infused Magnesium Sulfate/Dextrose (Magnesium Sulfate / D5w) 1 gm in 100 mls @ 50 mls/hr IV ONE ONE Stop: 05/21/25 11:01 Last Admin: 05/21/25 10:14 Dose: 50 mls/hr Lactobacillus Acidophilus (Advanced Probiotic 625 Mg Capsule) 1,250 mg PO DAILY [facility] Stop: 06/15/25 15:14 Last Admin: 05/21/25 08:46 Dose: 1,250 mg Levothyroxine Sodium (Levothyroxine Sodium 75 Mcg Tablet) 75 mcg PO DAILYBB [facility] Stop: 06/13/25 06:29 Last Admin: 05/20/25 10:18 Dose: 75 mcg Multivitamins/Minerals (Cerovite Adv Formula Tab) 1 tab PO DAILY [facility] Stop: 06/12/25 08:59 Last Admin: 05/21/25 08:46 Dose: 1 tab Oxycodone HCl (Oxycodone Hcl Ir 5 Mg Tab (Immediate Release)) 5 mg PO Q4H PRN PRN Reason: Pain Stop: 05/27/25 04:06 Spironolactone (Spironolactone 25 Mg Tab) 25 mg PO DAILY [facility] Stop: 06/20/25 08:59 Last Admin: 05/21/25 10:11 Dose: 25 mg
[2025-05-21] MEDS: ERGOCALCIFEROL 1250 MCG (50,000 UNITS) CAP PO SCH (10:11)
[2025-05-21] MEDS: SPIRONOLACTONE 25 MG TAB PO SCH (10:11)
[2025-05-21] MEDS: MAGNESIUM SULFATE / D5W 1 GM/100 ML BAG IV ONE (10:14)
[2025-05-22 06:47] LABS: Hematocrit (blood only) 34.1 % (37.0-47.0); Hemoglobin 11.2 g/dL (12.0-16.0); Mean Corpuscular Hemoglobin 29.2 pg (25.0-34.0); Mean Corpuscular Volume 88.8 fL (80.0-100.0); Platelet Count 286 K/uL (130-400); RDW Standard Deviation 46.8 fL (36.4-46.3); Red Blood Count 3.84 M/uL (4.20-5.40); White Blood Count 8.03 K/ul (4.8-10.8)
[2025-05-22 07:18] LABS: Anion Gap 5.0 (3-11); Blood Urea Nitrogen 11.0 mg/dl (6-23); Calcium 8.0 mg/dl (8.6-10.3); Carbon Dioxide 22.0 mmol/L (21-32); Chloride 112.0 mmol/L (98-107); Creatinine Clr Calc Pharmacy 60.0 ml/min; Glucose 91.0 mg/dl (70-99(Fasting)); Magnesium 1.7 mg/dl (1.7-2.4); Potassium 4.2 mmol/L (3.5-5.1); Sodium 139.0 mmol/L (136-145)
[2025-05-22] MEDS: POTASSIUM CHLORIDE 10 MEQ TABCR PO SCH (09:54)
[2025-05-22] MEDS: MAGNESIUM SULFATE / D5W 1 GM/100 ML BAG IV SCH (09:55)
[2025-05-22] MEDS: MAGNESIUM OXIDE 400 MG TAB PO SCH (11:09)
[2025-05-22] MEDS: FUROSEMIDE 40 MG TAB PO SCH (11:10)
--- NOTE | 2025-05-22 16:14 | Hospitalist Progress Note ---
Date of Service May 22, 2025 Assessment & Plan (1) Abdominal pain: (2) C. difficile colitis: (3) Choledocholithiasis: (4) Chronic heart failure with preserved ejection fraction (HFpEF): (5) Atrial fibrillation: (6) Hypothyroidism: (7) Iron deficiency anemia: (8) Hypocalcemia: (9) Chronic ulcer of right leg: Plan 89y/o F with PMHx significant for A-fib anticoagulated on Eliquis, hypertension, hyperlipidemia, hypothyroidism and chronic traumatic RLE wound who presented to the ED on 05/13/2025 with c/o watery diarrhea, abdominal pain and worsening generalized weakness x 3 days with associated poor p.o. intake. CTAP with evidence of pancolitis, (+) C. diff gene and toxin. C. difficile pancolitis Admitting CTAP revealed diffuse mucosal thickening with adjacent fat stranding in cecum, ascending colon, hepatic and splenic flexure, descending sigmoid colon, rectum Two recent hospitalizations ([facility] in January and [facility] in March) with recent abx use for chronic RLE wound Abdominal pain and diarrhea resolved on Dificid - continue until 05/25 Continue contact precautions PT/OT recommending rehab - anticipate dc to [facility] in [place] tomorrow Choledocholithiasis s/p ERCP Admitting CTAP noted dilated CBD with hyperdense calculus measuring 4mm at the distal end suggestive of choledocholithiasis. MRCP noted biliary ductal dilatation with distal choledocholithiasis. No pancreatic ductal dilatation. s/p ERCP on 05/18 with successful retrieval of the CBD stone into the duodenum Chronic HFpEF Newly diagnosed diastolic HF during hospitalization at [facility] in March- > started on lasix and spironolactone TTE, 04/18/25: preserved LVEF = 60%, moderately dilated RA, moderately dilated LA and mild TR. Patient appears euvolemic Diuretics initially held due to hypotension Continue lasix and spironolactone Atrial fibrillation chronically anticoagulated on Eliquis Recent DC cardioversion during hospitalization at [facility] in March due to RVR-> started on diltiazem and amiodarone Diltiazem initially held due to hypotension Continue Eliquis, diltiazem, and amiodarone taper>> 400mg BID x 2wk (05/13-05/24), then 200mg BID x 2wk (05/25-06/07), then 200mg daily (beginning 06/08). HTN Initially hypotensive, now normotensive Continue diltiazem, lasix, spironolactone as above Hypothyroidism Admitting TSH elevated at 23.958, up from 5.207 in February 2025 Increased levothyroxine to 75mcg daily Recommend repeat TFTs in 6-8 weeks on OP basis Iron deficiency anemia Anemia workup c/w Fe deficiency Continue iron supplementation Continue CBC monitoring Hypocalcemia Vitamin D deficiency Ca 8.0 today with normal ionized calcium Vitamin D level 15 -> start ergocalciferol 50,000 units weekly Recommend repeat level in 6-12 weeks on OP basis Pressure ulcer of R anterior leg, stage 4, POA Pressure ulcer of R ischium, stage 3, POA Follows with [facility] wound care Wound care as per WOCN Hyponatremia-> resolved 2/2 volume losses Na improved s/p IVF CLAY-> resolved Creat peaked at 1.73 and resolved s/p IVF Avoid nephrotoxic agents as able Monitor renal function DVT Prophylaxis: on Eliquis Code Status: DNR/DNI PCP: Joaquina Haji MD Disposition: anticipate dc to [facility] at [place] tomorrow Pt's family requesting daily updates. Ms. Winter Patel (daughter), contact #[phone]. Mr. Bob Patel (grandson), contact #[phone]. Patient seen in collaboration with Dr. Mnedez. Please see addendum. I spent a total of 60 minutes coordinating, documenting and providing care for this patient excluding time spent in the performance of separately billed services or time spent by another provider/QHP. Admission and Anticipated Discharge Date Admission Date: May 13, 2025 Supervising Physician Co-Signing Physician Notes Pt seen and examined by me, care coordinated w/ M. Tianna NARANJO, pls refer to her note for further detail. Pt is currently lying in bed in NAD, she is awake, alert, answers appropriately. She is doing overall much better. She is being treated for c. diff and also pt underwent ERCP during this hospitalization for choledocholethiasis. Diarrhea much improved now. She is tolerating diet, and denies any abd. pain. WBC is decreased/normalized, pt is afebrile. denies fever, chills, chest pain or shortness of breath. +right LE .edema improved. Mg 1.7 today and supplemented. Vit D level low - supplemented. Plan to Tn , CM involved. MD Vanessa Subjective Patient seen resting in bed Offers no acute complaints Denies dizziness, chest pain, SOB, abdominal pain, N/V/D Review of Systems Review of Systems: All systems reviewed & are unremarkable except as noted in HPI & below Physical Exam Physical Exam: General/Psych: obese, sitting up in bed, NAD, conversing easily, flat affect Head: normocephalic, atraumatic Eyes: normal inspection, PERRL, conjunctivae pink ENT: external ear and nose normal, oropharynx normal Neck: normal visual inspection, trachea midline Respiratory: normal respiratory effort, lungs clear to auscultation, no wheeze/rales/rhonchi, no accessory muscle use Cardiovascular: irregularly irregular rate and rhythm, no murmur/rub/gallop Extremities: no cyanosis or clubbing, normal pulses and no edema LLE, 2+ pitting edema R foot, decreased pulse in right foot but warm with brisk cap refill Abdomen/GI: normal bowel sounds, soft, nontender Neurologic/MSK: A+Ox3, motor strength 5/5, moves all extremities Skin: no rashes, normal color, warm and dry, dressing to RLE c/d/i Results & Data Results & Data Vital Signs (Past 12 Hours) Vital Signs Temp Pulse Pulse Pulse Resp BP BP 05/22/25 15:51 36.3 C L 81 20 126/75 05/22/25 15:21 54 L 05/22/25 12:12 80 16 127/73 05/22/25 08:17 36.4 C L 86 16 134/83 05/22/25 08:15 05/22/25 07:13 78 05/22/25 04:15 36.7 C 73 20 118/71 Pulse Ox O2 Del Method 05/22/25 15:51 100 Room Air 05/22/25 15:21 05/22/25 12:12 Room Air 05/22/25 08:17 96 Room Air 05/22/25 08:15 Room Air 05/22/25 07:13 05/22/25 04:15 98 Room Air Laboratory Results Short CBC 05/22/25 Range/Units 05:53 WBC 8.03 (4.8-10.8) K/ul Hgb 11.2 L (12.0-16.0) g/dL Hct 34.1 L (37.0-47.0) % Plt Count 286 (130-400) K/uL BMP 05/22/25 05:53 Sodium 139 Potassium 4.2 Chloride 112 H Carbon Dioxide 22 BUN 11 Creatinine 0.70 Glucose 91 Calcium 8.0 L I have independently reviewed and interpreted patient's labs including CBC, BMP, mag, phos Medications Administered Current Inpatient Medications Acetaminophen (Acetaminophen 325 Mg Tab) 650 mg PO QID PRN PRN Reason: pain/fever Stop: 06/12/25 04:06 Last Admin: 05/13/25 22:22 Dose: 650 mg Amiodarone HCl (Amiodarone 200 Mg Tab) 400 mg PO BID NARENDRA; Taper Stop: 07/08/25 08:59 Last Admin: 05/22/25 09:09 Dose: 400 mg Apixaban (Apixaban 2.5 Mg Tab) 2.5 mg PO BID [facility] Stop: 06/18/25 11:59 Last Admin: 05/22/25 09:10 Dose: 2.5 mg Diltiazem HCl (Diltiazem Hcl 180 Mg Capcr) 180 mg PO DAILY [facility] Stop: 06/12/25 08:59 Last Admin: 05/22/25 09:10 Dose: 180 mg Ergocalciferol (Ergocalciferol 1250 Mcg (50,000 Units) Cap) 1,250 mcg PO Mo@0900 [facility] Stop: 06/20/25 08:59 Last Admin: 05/21/25 10:11 Dose: 1,250 mcg Ferrous Sulfate (Ferrous Sulfate 325 Mg Tab) 325 mg PO QAM [facility] Stop: 06/20/25 08:59 Last Admin: 05/22/25 09:10 Dose: 325 mg Fidaxomicin (Fidaxomicin 200 Mg Tab) 200 mg PO BID [facility] Stop: 05/25/25 11:44 Last Admin: 05/22/25 09:10 Dose: 200 mg Furosemide (Furosemide 40 Mg Tab) 40 mg PO QAM [facility] Stop: 06/21/25 08:59 Last Admin: 05/22/25 11:10 Dose: 40 mg Hydromorphone HCl (Hydromorphone Inj 0.5 Mg/0.5 Ml Syr) 0.25 mg IV Q4H PRN PRN Reason: Pain Stop: 05/27/25 22:45 Promethazine HCl (Phenergan) 6.25 mg in 50.25 mls @ 201 mls/hr IV Q6H PRN PRN Reason: Nausea And Vomiting Stop: 06/12/25 04:06 Last Infusion: 05/13/25 08:56 Dose: Infused Lactobacillus Acidophilus (Advanced Probiotic 625 Mg Capsule) 1,250 mg PO DAILY [facility] Stop: 06/15/25 15:14 Last Admin: 05/22/25 09:11 Dose: 1,250 mg Levothyroxine Sodium (Levothyroxine Sodium 75 Mcg Tablet) 75 mcg PO DAILYBB [facility] Stop: 06/13/25 06:29 Last Admin: 05/22/25 06:13 Dose: 75 mcg Magnesium Oxide (Magnesium Oxide 400 Mg Tab) 800 mg PO DAILY [facility] Stop: 06/21/25 08:59 Last Admin: 05/22/25 11:09 Dose: 800 mg Multivitamins/Minerals (Cerovite Adv Formula Tab) 1 tab PO DAILY [facility] Stop: 06/12/25 08:59 Last Admin: 05/22/25 09:11 Dose: 1 tab Oxycodone HCl (Oxycodone Hcl Ir 5 Mg Tab (Immediate Release)) 5 mg PO Q4H PRN PRN Reason: Pain Stop: 05/27/25 04:06 Potassium Chloride (Potassium Chloride 10 Meq Tabcr) 10 meq PO BID [facility] Stop: 06/21/25 08:59 Last Admin: 05/22/25 09:54 Dose: 10 meq Spironolactone (Spironolactone 25 Mg Tab) 25 mg PO DAILY [facility] Stop: 06/20/25 08:59 Last Admin: 05/22/25 13:03 Dose: 25 mg
[2025-05-23 06:31] LABS: Hematocrit (blood only) 37.3 % (37.0-47.0); Hemoglobin 12.1 g/dL (12.0-16.0); Mean Corpuscular Hemoglobin 28.9 pg (25.0-34.0); Mean Corpuscular Volume 89.0 fL (80.0-100.0); Platelet Count 309 K/uL (130-400); RDW Standard Deviation 47.1 fL (36.4-46.3); Red Blood Count 4.19 M/uL (4.20-5.40); White Blood Count 8.74 K/ul (4.8-10.8)
[2025-05-23 06:56] LABS: Anion Gap 6.0 (3-11); Blood Urea Nitrogen 10.0 mg/dl (6-23); Calcium 8.3 mg/dl (8.6-10.3); Carbon Dioxide 24.0 mmol/L (21-32); Chloride 108.0 mmol/L (98-107); Creatinine Clr Calc Pharmacy 48.9 ml/min; Glucose 92.0 mg/dl (70-99(Fasting)); Magnesium 1.8 mg/dl (1.7-2.4); Potassium 4.6 mmol/L (3.5-5.1); Sodium 138.0 mmol/L (136-145)
--- NOTE | 2025-05-23 13:22 | Hospitalist Progress Note ---
Date of Service May 23, 2025 Assessment & Plan (1) Abdominal pain: (2) C. difficile colitis: (3) Choledocholithiasis: (4) Chronic heart failure with preserved ejection fraction (HFpEF): (5) Atrial fibrillation: (6) Hypothyroidism: (7) Iron deficiency anemia: (8) Hypocalcemia: (9) Chronic ulcer of right leg: Plan 89y/o F with PMHx significant for A-fib anticoagulated on Eliquis, hypertension, hyperlipidemia, hypothyroidism and chronic traumatic RLE wound who presented to the ED on 05/13/2025 with c/o watery diarrhea, abdominal pain and worsening generalized weakness x 3 days with associated poor p.o. intake. CTAP with evidence of pancolitis, (+) C. diff gene and toxin. C. difficile pancolitis Admitting CTAP revealed diffuse mucosal thickening with adjacent fat stranding in cecum, ascending colon, hepatic and splenic flexure, descending sigmoid colon, rectum Two recent hospitalizations ([facility] in January and [facility] in March) with recent abx use for chronic RLE wound Abdominal pain and diarrhea resolved on Dificid - end date 05/25 Continue contact precautions PT/OT recommending rehab - offered bed at [facility] in [place], awaiting auth approval Choledocholithiasis s/p ERCP Admitting CTAP noted dilated CBD with hyperdense calculus measuring 4mm at the distal end suggestive of choledocholithiasis. MRCP noted biliary ductal dilatation with distal choledocholithiasis. No pancreatic ductal dilatation. s/p ERCP on 05/18 with successful retrieval of the CBD stone into the duodenum Chronic HFpEF Newly diagnosed diastolic HF during hospitalization at [facility] in March- > started on lasix and spironolactone TTE, 04/18/25: preserved LVEF = 60%, moderately dilated RA, moderately dilated LA and mild TR. Patient appears euvolemic Continue lasix and spironolactone Atrial fibrillation chronically anticoagulated on Eliquis Recent DC cardioversion during hospitalization at [facility] in March due to RVR-> started on amiodarone taper and diltiazem per records Continue Eliquis, diltiazem, and amiodarone taper>> 400mg BID x 2wk (05/13- 05/24), then 200mg BID x 2wk (05/25-06/07), then 200mg daily (beginning 06/08). HTN Initially hypotensive, now normotensive Continue diltiazem, lasix, spironolactone as above Hypothyroidism Admitting TSH elevated at 23.958, up from 5.207 in February 2025 Increased levothyroxine to 75mcg daily Recommend repeat TFTs in 6-8 weeks on OP basis Iron deficiency anemia Anemia workup c/w Fe deficiency Continue iron supplementation Hgb stable Hypocalcemia Vitamin D deficiency Ca 7.7 with normal ionized calcium Vitamin D level 15 -> started on ergocalciferol 50,000 units weekly Recommend repeat level in 6-12 weeks on OP basis Pressure ulcer of R anterior leg, stage 4, POA Pressure ulcer of R ischium, stage 3, POA Follows with [facility] wound care Wound care as per WOCN Hyponatremia-> resolved 2/2 volume losses Na improved s/p IVF CLAY-> resolved Creat peaked at 1.73 and resolved s/p IVF Avoid nephrotoxic agents as able Monitor renal function DVT Prophylaxis: on Eliquis Code Status: DNR/DNI PCP: Joaquina Haji MD Disposition: anticipate dc to [facility] once auth approved Pt's family requesting daily updates. Ms. Winter Patel (daughter), contact #[phone]. Mr. Bob Patel (grandson), contact #[phone]. Patient seen in collaboration with Dr. Mendez. Please see addendum. I spent a total of 60 minutes coordinating, documenting and providing care for this patient excluding time spent in the performance of separately billed services or time spent by another provider/QHP. Admission and Anticipated Discharge Date Admission Date: May 13, 2025 Supervising Physician Co-Signing Physician Notes Pt seen and examined by me, care coordinated w/ M. Tianna NARANJO, pls refer to her note for further detail. Pt is currently lying in bed in NAD, she is awake, alert, answers appropriately. She is doing overall much better. She is being treated for c. diff and also pt underwent ERCP during this hospitalization for choledocholethiasis. Diarrhea much improved now. She is tolerating diet, and denies any abd. pain. WBC is decreased/normalized, pt is afebrile. denies fever, chills, chest pain or shortness of breath. +right LE .edema improved. Plan to Dc , CM involved. MD Vanessa Subjective Patient seen resting in bed Offers no acute complaints Denies dizziness, chest pain, SOB, abdominal pain, N/V/D Review of Systems Review of Systems: All systems reviewed & are unremarkable except as noted in HPI & below Physical Exam Physical Exam: General/Psych: obese, sitting up in bed, NAD, conversing easily Head: normocephalic, atraumatic Eyes: normal inspection, PERRL, conjunctivae pink ENT: external ear and nose normal, oropharynx normal Neck: normal visual inspection, trachea midline Respiratory: normal respiratory effort, lungs clear to auscultation, no wheeze/rales/rhonchi, no accessory muscle use Cardiovascular: irregularly irregular rate and rhythm, no murmur/rub/gallop Extremities: no cyanosis or clubbing, normal pulses and no edema LLE, 2+ pitting edema R foot, decreased pulse in right foot but warm with brisk cap refill Abdomen/GI: normal bowel sounds, soft, nontender Neurologic/MSK: A+Ox3, motor strength 5/5, moves all extremities Skin: no rashes, normal color, warm and dry, dressing to RLE c/d/i Results & Data Results & Data Vital Signs (Past 12 Hours) Vital Signs Temp Pulse Pulse Resp BP Pulse Ox O2 Del Method 05/23/25 11:31 36.6 C 86 16 142/87 H 97 Room Air 05/23/25 08:00 73 05/23/25 08:00 Room Air 05/23/25 07:32 36.4 C L 76 16 113/61 94 Room Air 05/23/25 03:50 36.5 C 86 20 125/73 96 Room Air Laboratory Results Short CBC 05/23/25 Range/Units 06:08 WBC 8.74 (4.8-10.8) K/ul Hgb 12.1 (12.0-16.0) g/dL Hct 37.3 (37.0-47.0) % Plt Count 309 (130-400) K/uL BMP 05/23/25 06:08 Sodium 138 Potassium 4.6 Chloride 108 H Carbon Dioxide 24 BUN 10 Creatinine 0.86 Glucose 92 Calcium 8.3 L I have independently reviewed and interpreted patient's admitting labs including CBC, BMP, mag, phos. Medications Administered Current Inpatient Medications Acetaminophen (Acetaminophen 325 Mg Tab) 650 mg PO QID PRN PRN Reason: pain/fever Stop: 06/12/25 04:06 Last Admin: 05/13/25 22:22 Dose: 650 mg Amiodarone HCl (Amiodarone 200 Mg Tab) 400 mg PO BID [facility]; Taper Stop: 07/08/25 08:59 Last Admin: 05/23/25 10:08 Dose: 400 mg Apixaban (Apixaban 2.5 Mg Tab) 2.5 mg PO BID [facility] Stop: 06/18/25 11:59 Last Admin: 05/23/25 10:07 Dose: 2.5 mg Diltiazem HCl (Diltiazem Hcl 180 Mg Capcr) 180 mg PO DAILY [facility] Stop: 06/12/25 08:59 Last Admin: 05/23/25 10:07 Dose: 180 mg Ergocalciferol (Ergocalciferol 1250 Mcg (50,000 Units) Cap) 1,250 mcg PO Mo@0900 [facility] Stop: 06/20/25 08:59 Last Admin: 05/21/25 10:11 Dose: 1,250 mcg Ferrous Sulfate (Ferrous Sulfate 325 Mg Tab) 325 mg PO QAM [facility] Stop: 06/20/25 08:59 Last Admin: 05/23/25 10:07 Dose: 325 mg Fidaxomicin (Fidaxomicin 200 Mg Tab) 200 mg PO BID [facility] Stop: 05/25/25 11:44 Last Admin: 05/23/25 10:07 Dose: 200 mg Furosemide (Furosemide 40 Mg Tab) 40 mg PO QAM [facility] Stop: 06/21/25 08:59 Last Admin: 05/23/25 10:09 Dose: 40 mg Hydromorphone HCl (Hydromorphone Inj 0.5 Mg/0.5 Ml Syr) 0.25 mg IV Q4H PRN PRN Reason: Pain Stop: 05/27/25 22:45 Promethazine HCl (Phenergan) 6.25 mg in 50.25 mls @ 201 mls/hr IV Q6H PRN PRN Reason: Nausea And Vomiting Stop: 06/12/25 04:06 Last Infusion: 05/13/25 08:56 Dose: Infused Lactobacillus Acidophilus (Advanced Probiotic 625 Mg Capsule) 1,250 mg PO DAILY [facility] Stop: 06/15/25 15:14 Last Admin: 05/23/25 10:07 Dose: 1,250 mg Levothyroxine Sodium (Levothyroxine Sodium 75 Mcg Tablet) 75 mcg PO DAILYBB [facility] Stop: 06/13/25 06:29 Last Admin: 05/23/25 06:06 Dose: 75 mcg Magnesium Oxide (Magnesium Oxide 400 Mg Tab) 800 mg PO DAILY [facility] Stop: 06/21/25 08:59 Last Admin: 05/23/25 10:08 Dose: 800 mg Multivitamins/Minerals (Cerovite Adv Formula Tab) 1 tab PO DAILY [facility] Stop: 06/12/25 08:59 Last Admin: 05/23/25 10:07 Dose: 1 tab Oxycodone HCl (Oxycodone Hcl Ir 5 Mg Tab (Immediate Release)) 5 mg PO Q4H PRN PRN Reason: Pain Stop: 05/27/25 04:06 Potassium Chloride (Potassium Chloride 10 Meq Tabcr) 10 meq PO BID [facility] Stop: 06/21/25 08:59 Last Admin: 05/23/25 10:06 Dose: 10 meq Spironolactone (Spironolactone 25 Mg Tab) 25 mg PO DAILY [facility] Stop: 06/20/25 08:59 Last Admin: 05/23/25 10:08 Dose: 25 mg
[2025-05-24 07:53] LABS: Anion Gap 7.0 (3-11); Blood Urea Nitrogen 11.0 mg/dl (6-23); Calcium 8.5 mg/dl (8.6-10.3); Carbon Dioxide 26.0 mmol/L (21-32); Chloride 105.0 mmol/L (98-107); Creatinine Clr Calc Pharmacy 49.5 ml/min; Glucose 85.0 mg/dl (70-99(Fasting)); Magnesium 1.7 mg/dl (1.7-2.4); Potassium 4.8 mmol/L (3.5-5.1); Sodium 138.0 mmol/L (136-145)
--- NOTE | 2025-05-24 09:55 | Hospitalist Progress Note ---
<Statement entered by Otto Coleman DO - 05/24/25 14:31> patient seen and examined Finishing course of dificid tomorrow SNF placement I spent a total of 20 minutes coordinating, documenting, and providing care for this patient excluding time spent in the performance of separately billed services. This included personally reviewing all current laboratories and imaging studies, medical reconciliation, outpatient chart review and discussion with specialists Date of Service May 24, 2025 Assessment & Plan (1) C. difficile colitis: (2) Choledocholithiasis: (3) Chronic heart failure with preserved ejection fraction (HFpEF): (4) Atrial fibrillation: (5) Hypothyroidism: (6) Iron deficiency anemia: (7) Hypocalcemia: (8) Chronic ulcer of right leg: Plan 89y/o F with PMHx significant for A-fib anticoagulated on Eliquis, hypertension, hyperlipidemia, hypothyroidism and chronic traumatic RLE wound who presented to the ED on 05/13/2025 with c/o watery diarrhea, abdominal pain and worsening generalized weakness x 3 days with associated poor p.o. intake. CTAP with evidence of pancolitis, (+) C. diff gene and toxin. C. difficile pancolitis Admitting CTAP revealed diffuse mucosal thickening with adjacent fat stranding in cecum, ascending colon, hepatic and splenic flexure, descending sigmoid colon, rectum Two recent hospitalizations ([facility] in January and [facility] in March) with recent abx use for chronic RLE wound Abdominal pain and diarrhea resolved on Dificid - end date 05/25 Continue contact precautions PT/OT recommending rehab - offered bed at [facility] in [place], awaiting auth approval Choledocholithiasis s/p ERCP Admitting CTAP noted dilated CBD with hyperdense calculus measuring 4mm at the distal end suggestive of choledocholithiasis. MRCP noted biliary ductal dilatation with distal choledocholithiasis. No pancreatic ductal dilatation. s/p ERCP on 05/18 with successful retrieval of the CBD stone into the duodenum Chronic HFpEF Newly diagnosed diastolic HF during hospitalization at [facility] in March- > started on lasix and spironolactone TTE, 04/18/25: preserved LVEF = 60%, moderately dilated RA, moderately dilated LA and mild TR. Patient appears euvolemic Continue lasix and spironolactone Atrial fibrillation chronically anticoagulated on Eliquis Tele monitor w/ afib on my review Recent DC cardioversion during hospitalization at [facility] in March due to RVR-> started on amiodarone taper and diltiazem per records Continue Eliquis, diltiazem, and amiodarone taper>> 400mg BID x 2wk (05/13- 05/24), then 200mg BID x 2wk (05/25-06/07), then 200mg daily (beginning 06/08). HTN Initially hypotensive, now normotensive 130/83 Continue diltiazem, lasix, spironolactone as above Hypothyroidism Admitting TSH elevated at 23.958, up from 5.207 in February 2025 Increased levothyroxine to 75mcg daily Recommend repeat TFTs in 6-8 weeks on OP basis Iron deficiency anemia Anemia workup c/w Fe deficiency Continue iron supplementation Hgb stable Hypocalcemia Vitamin D deficiency Ca 7.7 with normal ionized calcium Vitamin D level 15 -> started on ergocalciferol 50,000 units weekly Recommend repeat level in 6-12 weeks on OP basis Pressure ulcer of R anterior leg, stage 4, POA Pressure ulcer of R ischium, stage 3, POA Follows with [facility] wound care Wound care as per WOCN Hyponatremia-> resolved 2/2 volume losses Na improved 138 today s/p IVF CLAY-> resolved Creat peaked at 1.73 and resolved s/p IVF Avoid nephrotoxic agents as able Monitor renal function DVT Prophylaxis: on Eliquis Code Status: DNR/DNI PCP: Joaquina Haji MD Disposition: anticipate dc to [facility] [place] once auth approved Pt's family requesting daily updates. Ms. Winter Patel (daughter), contact #[phone]. Mr. Bob Patel (grandson), contact #[phone]. Patient seen in collaboration with Dr. Coleman. Please see addendum. I spent a total of 35 minutes coordinating, documenting and providing care for this patient excluding time spent in the performance of separately billed services or time spent by another provider/QHP. Admission and Anticipated Discharge Date Admission Date: May 13, 2025 Subjective Patient seen and examined at bedside. Feels overall better. No longer having diarrhea on Dificid. Reporting numbness to RLE that occurred with traumatic RLE injury several months ago and now with minimal strengthening to RLE. PT following. Patient agreeable to rehab following d/c from current hospitalization. Denies chills, headache, chest pain, shortness of breath, difficulty breathing, abdominal pain. Review of Systems Review of Systems: All systems reviewed & are unremarkable except as noted in Subjective Physical Exam Physical Exam: VITALS: Reviewed. WEIGHT/BMI reviewed. GEN: Healthy appearing, well-developed, NAD. PSYCH: Good Judgment. AOx3. Normal memory, mood, and affect. HEENT -Head: NC/AT; -Eyes: PERRL, EOMI. No discharge or redn ess; -Ears: External ears are normal. -Nose: Normal nares. -Mouth and throat: MMM. Normal gums, muc nelson, palate,. Good dentition. NECK: Supple, with no masses. CV: RRR, no m/r/g. pedal edema to RLE. LUNGS: Diminished to R side, clear on left, NAD, nonproductive cough. ABD: Soft, NT/ND, NBS, no masses or organomegaly. : N/A SKIN: Warm, well perfused. RLE wrapped in gauze dressing, clean. MSK: Strength 1/5 RLE, 3/5 to LLE. Sensation not intact to RLE. EXT: No clubbing, cyanosis, or edema. NEURO: CN II-XII grossly intact. No focal deficits. Results & Data Results & Data Vital Signs (Past 12 Hours) Vital Signs Temp Pulse Pulse Resp BP Pulse Ox O2 Del Method 05/24/25 08:28 36.4 C L 90 18 130/83 95 Room Air 05/24/25 02:09 36.3 C L 90 16 133/77 96 Room Air 05/23/25 22:36 36.4 C L 91 H 16 115/76 93 Room Air 05/23/25 21:56 77 Laboratory Results [facility] 05/24/25 06:35 Sodium 138 Potassium 4.8 Chloride 105 Carbon Dioxide 26 BUN 11 Creatinine 0.85 Glucose 85 Calcium 8.5 L
[2025-05-24 20:09] VITALS: RESP 16
[2025-05-25 02:35] VITALS: BP 118/73; TEMP 97.7; O2SAT 94
--- NOTE | 2025-05-25 08:00 | Hospitalist Progress Note ---
Date of Service May 25, 2025 Assessment & Plan (1) C. difficile colitis: (2) Choledocholithiasis: (3) Chronic heart failure with preserved ejection fraction (HFpEF): (4) Atrial fibrillation: (5) Hypothyroidism: (6) Iron deficiency anemia: (7) Hypocalcemia: (8) Chronic ulcer of right leg: Plan 89y/o F with PMHx significant for A-fib anticoagulated on Eliquis, hypertension, hyperlipidemia, hypothyroidism and chronic traumatic RLE wound who presented to the ED on 05/13/2025 with c/o watery diarrhea, abdominal pain and worsening generalized weakness x 3 days with associated poor p.o. intake. CTAP with evidence of pancolitis, (+) C. diff gene and toxin. C. difficile pancolitis Admitting CTAP revealed diffuse mucosal thickening with adjacent fat stranding in cecum, ascending colon, hepatic and splenic flexure, descending sigmoid colon, rectum Two recent hospitalizations ([facility] in January and [facility] in March) with recent abx use for chronic RLE wound Abdominal pain and diarrhea resolved on Dificid - end date 05/25 Continue contact precautions PT/OT recommending rehab - offered bed at [facility], awaiting auth approval Choledocholithiasis s/p ERCP Admitting CTAP noted dilated CBD with hyperdense calculus measuring 4mm at the distal end suggestive of choledocholithiasis. MRCP noted biliary ductal dilatation with distal choledocholithiasis. No pancreatic ductal dilatation. s/p ERCP on 05/18 with successful retrieval of the CBD stone into the duodenum Chronic HFpEF Newly diagnosed diastolic HF during hospitalization at [facility] in March- > started on lasix and spironolactone TTE, 04/18/25: preserved LVEF = 60%, moderately dilated RA, moderately dilated LA and mild TR. Patient appears euvolemic Continue lasix and spironolactone Atrial fibrillation chronically anticoagulated on Eliquis Tele monitor w/ afib on my review Recent DC cardioversion during hospitalization at [facility] in March due to RVR-> started on amiodarone taper and diltiazem per records Continue Eliquis, diltiazem, and amiodarone taper>> 400mg BID x 2wk (05/13- 05/24), then 200mg BID x 2wk (05/25-06/07), then 200mg daily (beginning 06/08). HTN Initially hypotensive, now normotensive 130/83 Continue diltiazem, lasix, spironolactone as above Hypothyroidism Admitting TSH elevated at 23.958, up from 5.207 in February 2025 Increased levothyroxine to 75mcg daily Recommend repeat TFTs in 6-8 weeks on OP basis Iron deficiency anemia Anemia workup c/w Fe deficiency Continue iron supplementation Hgb stable Hypocalcemia Vitamin D deficiency Ca 7.7 with normal ionized calcium Vitamin D level 15 -> started on ergocalciferol 50,000 units weekly Recommend repeat level in 6-12 weeks on OP basis Pressure ulcer of R anterior leg, stage 4, POA Pressure ulcer of R ischium, stage 3, POA Follows with [facility] wound care Wound care as per WOCN Hyponatremia-> resolved 2/2 volume losses Na improved 138 today s/p IVF CLAY-> resolved Creat peaked at 1.73 and resolved s/p IVF Avoid nephrotoxic agents as able Monitor renal function DVT Prophylaxis: on Eliquis Code Status: DNR/DNI PCP: Joaquina Haji MD Disposition: anticipate dc to [facility] [place] once auth approved Pt's family requesting daily updates. Ms. Winter Patel (daughter), contact #[phone]. Mr. Bob Patel (grandson), contact #[phone]. Patient seen in collaboration with Dr. Coleman. Please see addendum. I spent a total of 35 minutes coordinating, documenting and providing care for this patient excluding time spent in the performance of separately billed services or time spent by another provider/QHP. Admission and Anticipated Discharge Date Admission Date: May 13, 2025 Subjective Patient seen and examined at bedside. Feels overall better. No longer having diarrhea on Dificid. Reporting numbness to RLE that occurred with traumatic RLE injury several months ago and now with minimal strengthening to RLE. PT following. Patient agreeable to rehab following d/c from current hospitalization. Denies chills, headache, chest pain, shortness of breath, difficulty breathing, abdominal pain. Results & Data Results & Data Vital Signs (Past 12 Hours) Vital Signs Temp Pulse Pulse Resp BP Pulse Ox O2 Del Method 05/25/25 07:40 86 05/25/25 02:32 36.5 C 64 16 118/73 94 Room Air 05/24/25 23:40 36.8 C 84 16 115/65 93 Room Air 05/24/25 22:01 79 05/24/25 20:08 37 C 80 16 108/68 97 Room Air
[2025-05-25 08:17] LABS: Anion Gap 7.0 (3-11); Blood Urea Nitrogen 12.0 mg/dl (6-23); Calcium 8.4 mg/dl (8.6-10.3); Carbon Dioxide 28.0 mmol/L (21-32); Chloride 103.0 mmol/L (98-107); Creatinine Clr Calc Pharmacy 49.2 ml/min; Glucose 82.0 mg/dl (70-99(Fasting)); Magnesium 1.7 mg/dl (1.7-2.4); Potassium 4.9 mmol/L (3.5-5.1); Sodium 138.0 mmol/L (136-145)
[2025-05-25 10:57] VITALS: PULSE 64
--- NOTE | 2025-05-25 14:09 | Discharge Summary ---
<Statement entered by Otto Coleman, DO - 05/25/25 18:47> Seen and examined Agree with KENAN I spent a total of 20 minutes coordinating, documenting, and providing care for this patient excluding time spent in the performance of separately billed services. This included personally reviewing all current laboratories and imaging studies, medical reconciliation, outpatient chart review and discussion with specialists Finishing dificid today No more diarrhea Date of Service May 25, 2025 Admission HPI Per Admitting Provider History obtained from patient, family, and records. Medical history significant for CHF, A-fib on Eliquis, hypertension, hyperlip idemia, hypothyroidism, chronic traumatic RLE wound. Recent confinement [facility] last January 2025 for possible pneumonia, UTI, traumatic rhabdomyolysis/RLE wound. Patient subsequently discharged to [facility] rehab facility and was just discharged home 2 days ago. Patient with watery diarrhea symptoms 3 days ago prior to leaving rehab facility. Intermittent achy upper abdominal pain with nausea symptoms. No fever, no chills. No chest pain, no SOB. Poor appetite at home. Patient brought to ER for evaluation. NSS bolus, IV ciprofloxacin and Flagyl administered at the ER. Medical History as above Surgical History : Shoulder surgery, ankle fracture surgery Family History : No DM, no heart disease, no gallstones Personal/Social history : Non-smoker, no EtOH intake, retired caregiver Admission Exam Per Admitting Provider GENERAL: Slightly uncomfortable, obese, no respiratory distress SKIN: Normal color, warm HEENT: [place] palpebral conjunctivae, no ptosis, dry buccal mucosa NECK : Supple, no tenderness CHEST : Decreased breath sounds, no tenderness HEART : Irregular, no obvious murmurs ABDOMEN: Some distention, nontender EXTREMITIES : RLE dressing, no tenderness, palpable pulses, no other conspicuous deformities noted NEUROLOGIC : Coherent, no facial asymmetry, no other gross focality Principal Diagnosis C. Difficile Colitis Discharge Exam VITALS: Reviewed. WEIGHT/BMI reviewed. GEN: Healthy appearing, well-developed, NAD. PSYCH: Good Judgment. AOx3. Normal memory, mood, and affect. HEENT -Head: NC/AT; -Eyes: PERRL, EOMI. No discharge or redness; -Ears: External ears are normal. -Nose: Normal nares. -Mouth and throat: MMM. Normal gums, mucosa, palate,. Good dentition. NECK: Supple, with no masses. CV: RRR, no m/r/g. pedal edema to RLE. LUNGS: Diminished to R side, clear on left, NAD, nonproductive cough. ABD: Soft, NT/ND, NBS, no masses or organomegaly. : N/A SKIN: Warm, well perfused. RLE wrapped in gauze dressing, clean. MSK: Strength 1/5 RLE, 3/5 to LLE. Sensation not intact to RLE. EXT: No clubbing, cyanosis, or edema. NEURO: CN II-XII grossly intact. No focal deficits. Discharge Data Allergies Allergy/AdvReac Type Severity Reaction Status Date / Time Penicillins Allergy Severe THROAT Verified 05/13/25 01:33 SWELLS/ITCHING HANDS & FEET Consultations 05/13/25 03:09 Consult Gastroenterology Routine 05/13/25 03:15 ED Decision to Admit Stat 05/13/25 15:04 HIM [Consult Health Information Management] Stat Procedures Performed Operation Date: 05/18/25 07:00 Actual Procedures p Endoscopic Retrograde Cholangiopancreatography(Not Applicable) - Haseeb Pete MD Ordered Studies 05/13/25 01:27 CT abd pelvis wo con Stat 05/16/25 13:47 MR MRCP Routine 05/18/25 FL ERCP biliary ductal Routine Hospital Course (1) C. difficile colitis: (2) Choledocholithiasis: (3) Chronic heart failure with preserved ejection fraction (HFpEF): (4) Atrial fibrillation: (5) Hypothyroidism: (6) Iron deficiency anemia: (7) Hypocalcemia: (8) Chronic ulcer of right leg: Plan Ms. Patel is a 89 year old female with a past medical history significant for A-fib anticoagulated on Eliquis, hypertension, hyperlipidemia, hypothyroidism and chronic traumatic RLE wound who presented to [facility] emergency department on 05/13/2025 with complaint of watery diarrhea, abdominal pain and worsening generalized weakness for 3 days. Additionally, she had associated poor oral intake. For workup, a CT scan of her abdomen and pelvis was obtained and found to have common bile duct dilatation with a hyperdense calculus of size 4 mm at distal end, highly suggestive of choledocholithiasis. Additionally, she was noted to have a 16 x 16 mm sized hypodense lesion in segment IV of liver, sliding hiatus hernia, and multiple small uncomplicated sigmoid colonic diverticulosis. An Endoscopic retrograde cholangiopancreatography was done on 05/18/2025 with successful single stone retrieval. Given her recent antibiotic use and presenting symptoms, workup revealed she was positive for C. diff gene and toxin and treated with Dificid that ended on day os discharge to [facility] rehab facility in [place]. Please see additional details of hospitalization noted below. C. difficile pancolitis Admitting CTAP revealed diffuse mucosal thickening with adjacent fat stranding in cecum, ascending colon, hepatic and splenic flexure, descending sigmoid colon, rectum Two recent hospitalizations ([facility] in January and [facility] in March) with recent antibiotic use for chronic RLE wound Abdominal pain and diarrhea resolved on Dificid - end date 05/25 PT evaluation recommending rehab and transferred to [facility] in [place] Choledocholithiasis s/p ERCP Admitting CTAP noted dilated CBD with hyperdense calculus measuring 4mm at the distal end suggestive of choledocholithiasis. MRCP noted biliary ductal dilatation with distal choledocholithiasis. No pancreatic ductal dilatation. s/p ERCP on 05/18 with successful retrieval of the CBD stone into the duodenum Chronic HFpEF Newly diagnosed diastolic HF during hospitalization at [facility] in March- > started on lasix and spironolactone TTE, 04/18/25: preserved LVEF = 60%, moderately dilated RA, moderately dilated LA and mild TR. Patient euvolemic Lasix and spironolactone given during hospitalizations- scripts sent at [facility] Atrial fibrillation chronically anticoagulated on Eliquis Tele monitor w/ afib Recent DC cardioversion during hospitalization at [facility] in March due to RVR-> started on amiodarone taper and diltiazem per records Received Eliquis, diltiazem, and amiodarone taper while inpatient >> 200mg BID x 2wk (05/25-06/07), then 200mg daily (beginning 06/08). HTN Initially hypotensive, now normotensive 130/83 Continue diltiazem, lasix, spironolactone as above Hypothyroidism Admitting TSH elevated at 23.958, up from 5.207 in February 2025 Increased levothyroxine to 75mcg daily Recommend repeat TFTs in 6-8 weeks on OP basis Iron deficiency anemia Anemia workup c/w Fe deficiency Continue iron supplementation Hgb stable Hypocalcemia Vitamin D deficiency Ca 7.7 with normal ionized calcium Vitamin D level 15 -> started on ergocalciferol 50,000 units weekly Recommend repeat level in 6-12 weeks on OP basis Pressure ulcer of R anterior leg, stage 4, POA Pressure ulcer of R ischium, stage 3, POA Follows with [facility] wound care Wound care as per WOCN Hyponatremia-> resolved 2/2 volume losses Na improved 138 today s/p IVF CLAY-> resolved Creat peaked at 1.73 and resolved s/p IVF Avoid nephrotoxic agents as able Monitor renal function Total Time Total Time Spent Total Time Spent (In Minutes): Patient seen in collaboration with Dr. Coleman. Please see addendum.I spent a total of 30 minutes coordinating, documenting and providing care for this patient excluding time spent in the performance of separately billed services or time spent by another provider/QHP. Discharge Plan Discharge Items Patient Disposition: Transfer Inpatient Rehab Fac Reason For Visit: HYPONATREMIA Discharge Diagnosis: Diarrhea, C Diff infection Condition on Discharge: Fair Activity: Resume your previous activity Non-emergency contact: Primary Care Provider Call non-emergency contact if: your pain is worsening and you have a fever Follow-up/Referrals: Milan London MD [Primary Care Provider] - Diet: Heart Healthy Addtl Attending Provider Instructions: Dear Ms. Patel, It was a pleasure taking care of your during your hospital stay at [facility] from 05/18/2025-05/25/2025. You were admitted to the hospital for diarrhea and abdominal pain and diagnosed with C Difficile, which is a gastrointestinal stomach bug commonly found after antibiotic use. To treat this infection, you were given a medication called Difficid and completed this treatment on the day of discharge. With infections like this, we can see anemia and this was found on your lab workup with consequent iron supplementation. Please continue with iron pills daily and recheck labs with your primary care provider. Imaging was obtained for your symptoms and through a MRCP study, you were found to have biliary ductal dilatation with gallbladder stone. A procedure called an ERCP was done on 05/18/25 that successfully removed the stone from the common bile duct that leads into the duodenum of the gut. When you came to the hospital, you had pressure ulcers to your R leg and R ischium that you've been receiving treatment from at [facility]. Please continue to have ongoing wound care as an outpatient. MEDICATION CHANGES AND RECOMMENDATIONS FOR FOLLOW-UP: Follow up with your primary care provider as soon as you are able to schedule an appointment. We would like you to discuss the following with your primary care provider and/or specialist at your next appointment: * Labs- * Calcium levels were low this admission. This was corrected and you were started on Vitamin D supplementation. We recommend repeating calcium and Vitamin D levels in 6-12 weeks on an outpatient basis. * Medications- * Started on Amiodarone taper in March following cardioversion>> Amiodarone 200mg twice daily x 2 weeks (05/25-06/07), then decrease to 200mg daily (beginning 06/08). * Dificid - ended 05/25 completed treatment for C Difficile infection * Iron supplementation for anemia found on labs OTHER INSTRUCTIONS: Newly diagnosed with diastolic heart failure during hospitalization at [facility] in March and started on lasix and spironolactone. Please continue and follow up with primary care provider and cardiology. Seek medical attention if you have: * temperature above 101 * chest pain or trouble breathing * abdominal pain, nausea, vomiting * diarrhea, dark stools or bloody stools * any unanswered questions or concerns Call 911 if symptoms are severe. Please take good care of yourself. It has been a pleasure taking care of you. Please take care of yourself. If you have any questions regarding your recent hospitalization please contact [facility] and request Mary Dalyist @ [phone]. Pending Studies at Discharge: No Stand-Alone Forms: My [facility] Skilled Items Patient informed of condition?: Yes DNR: Yes Discharge Level of Care: Acute rehab Communicable Disease: No Discharge Prognosis: Stable Lines: None Urinary Catheter: No Medications and DC Order Prescriptions: New ferrous sulfate 325 mg (65 mg iron) Tablet,Delayed Release (Dr/Ec) 325 mg PO QAM 30 Days Qty: 30 0RF amiodarone 200 mg Tablet 200 mg PO BID 30 Days Qty: 60 0RF ergocalciferol (vitamin D2) 1,250 mcg (50,000 unit) Capsule 1,250 mcg PO Mo@0900 30 Days Qty: 5 0RF Cerovite Senior 0.4 mg-300 mcg- 250 mcg Tablet 1 tab PO DAILY Qty: 30 0RF Continued amiodarone 200 mg tablet 200 mg PO DIRECTED Rx Instructions: STARTED 05/11/25. TAKES 400 MG BID X 2 WEEKS, THEN 200 MG BID X 2 WEEKS, THEN 200 MG DAILY. dapagliflozin propanediol 10 mg tablet 10 mg PO DAILY furosemide 40 mg tablet 40 mg PO QAM 30 Days Qty: 30 0RF potassium chloride 10 mEq tablet extended release 10 meq PO BID 30 Days Qty: 60 0RF spironolactone 25 mg Tablet 25 mg PO DAILY 30 Days Qty: 30 0RF levothyroxine 50 mcg tablet 50 mcg PO DAILYBB 30 Days Qty: 30 0RF diltiazem HCl [Cardizem LA] 180 mg tablet extended release 24 hr 180 mg PO DAILY 30 Days Qty: 30 0RF apixaban 2.5 mg tablet 2.5 mg PO BID 30 Days Qty: 60 0RF magnesium oxide 400 mg magnesium Tablet 800 mg PO DAILY 30 Days Qty: 60 0RF Discontinued High Potency Vitamin/Minerals Tablet 1 tab PO DAILY Discharge Orders: Discharge Order (Routine); Ordered 05/25/25 Ordered By: Jenna Santiago/Other Patient Handouts: C. Diff Prevent Infection Admission Data Admit Date/Time: 05/13/25 03:31 Attending Provider: Otto Coleman Admit Provider: Jason Gaspar Primary Care Provider: Milan London Other Providers: Haseeb Pete; Jason Gaspar Other Interventions: Discharge Summary Assessment (RN) Last Done: 05/25/25 10:55
== END 2025-05-25 11:36 | DRG 371 ==
LOC: ED 00:42 → SUATTDRO 03:31 → 2N 03:31